=== PATIENT | female | born 1965 | race African-American/Black ===

== ENCOUNTER 2017-09-29 07:49 | Inpatient (IN) ==
--- NOTE | 2017-09-29 08:14 | ED ---
HPI General Chief Complaint: Chest Pain Stated Complaint: Chest Pain/Evac Time Seen by Provider: 09/29/17 08:07 Source: patient Mode of arrival: EMS Limitations: no limitations History of Present Illness HPI narrative: 52-year-old female complains of chest pain. Patient states that the pain started at 8:00 last night. Patient states that the pain is sharp pain localized to left chest., Started a left chest with radiation to left shoulder. Patient states that the pain is worse with deep breathing. Patient states that she has mild coughing congestion productive cough for the past 2 days. Patient Has history of CAD status post CABG, ischemic cardiomyopathy, CHF with ejection fraction 55-60%, hypertension, insulin-dependent diabetes, hyperlipidemia, stage IV chronic kidney disease, diabetic neuropathy, GI bleed. Patient has dialysis Monday and Monday. Patient went to dialysis this morning and was given heparin 2,000 units Preparing for dialysis. Patient was not given dialysis after patient complained of chest pain. Patient was transferred to [facility] by EMS for evaluation of chest pain. Patient was given nitroglycerin sublingual 3 without relief with chest pain. 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 Patient has appointment with Dr. Cobos for AV fistula check today. Complete Quality Measures for STEMI Alert Patients Related Data Home Medications Medication Instructions Recorded Confirmed amlodipine 10 mg PO DAILY 09/29/17 09/29/17 aspirin [Aspir-81] 81 mg PO DAILY 09/29/17 09/29/17 clopidogrel [Plavix] 75 mg PO DAILY 09/29/17 09/29/17 enalapril maleate [Vasotec] 20 mg PO BID 09/29/17 09/29/17 ferrous sulfate 325 mg PO BID 09/29/17 09/29/17 folic acid 0.4 mg PO DAILY 09/29/17 09/29/17 gabapentin 300 mg PO DAILY 09/29/17 09/29/17 hydralazine 50 mg PO TID 09/29/17 09/29/17 insulin glargine [Lantus U-100 15 unit SUB-Q DAILY 09/29/17 09/29/17 Insulin] isosorbide mononitrate 120 mg PO QAM 09/29/17 09/29/17 metoprolol tartrate 100 mg PO BID 09/29/17 09/29/17 nitroglycerin [Nitrostat] 0.4 mg SUBLINGUAL Q5-15M PRN 09/29/17 09/29/17 ondansetron HCl [Zofran] 4 mg PO Q6HR PRN 09/29/17 09/29/17 pravastatin [Pravachol] 40 mg PO DAILY 09/29/17 09/29/17 Allergies Allergy/AdvReac Type Severity Reaction Status Date / Time shellfish derived AdvReac Mild Vomiting Verified 09/29/17 08:09 Review of Systems Except as stated in HPI: all other systems reviewed are negative [facility] Medical History Medical History AV fistula (Acute) CAD (coronary artery disease) (Acute) CHF (congestive heart failure) (Acute) Diabetes (Acute) Dialysis patient (Acute) High cholesterol (Acute) Hypertension (Acute) Neuropathy (Acute) Pancreatitis (Acute) Renal failure (Acute) Surgical History Surgical History H/O tubal ligation (Acute) History of cholecystectomy (Acute) Status post double vessel coronary artery bypass (Acute) Social History Social History Substance History: No History of Abuse Second Hand Smoke Exposure: No Smoking Status: Former smoker Smoking End Date: 2016 How Often Do You Have a Drink Containing Alcohol: Never Hx Recent Travel: No Recent Travel in [facility] within the Last 8 Weeks: No Recent Out of Country Travel within the Last 8 Weeks: No Immunization History Tetanus Immunization: >5 Years Hx Influenza Vaccine This Season: Yes Exam Narrative Exam Narrative: GENERAL: Well-nourished, well-developed patient. SKIN: Focused skin assessment warm/dry. HEAD: Normocephalic. EYES: No scleral icterus. No injection or drainage. NECK: Supple, trachea midline. No JVD or lymphadenopathy. CARDIOVASCULAR: Regular rate and rhythm without murmurs, gallops, or rubs. RESPIRATORY: Breath sounds equal bilaterally. No accessory muscle use. GASTROINTESTINAL: Abdomen soft, non-tender, nondistended. MUSCULOSKELETAL: No cyanosis, or edema. BACK: Nontender without obvious deformity. No CVA tenderness. Neurologic exam normal. Course Initial Documented Vital Signs Temperature 98.0 F 09/29/17 07:55 Pulse Rate 77 09/29/17 07:55 Respiratory Rate 21 09/29/17 07:55 Blood Pressure 186/84 H 09/29/17 07:55 Pulse Oximetry 100 09/29/17 07:55 Last Documented Vital Signs Temperature 98.2 F 10/01/17 12:00 Pulse Rate 71 10/01/17 12:00 Respiratory Rate 18 10/01/17 12:00 Blood Pressure 152/77 H 10/01/17 12:00 Pulse Oximetry 97 10/01/17 12:00 Medical Decision Making MDM Narrative Medical decision making narrative: 52-year-old female with chest pain. History of CAD, CABG, status post CABG, ischemic cardiomyopathy, CHF, chronic kidney disease on dialysis. Differential Diagnosis Differential Diagnosis: Differential diagnosis including musculoskeletal, angina , PA, PE, pneumothorax. Lab Data Result diagrams: 10/01/17 08:55 10/01/17 08:55 Lab Results 09/29/17 09/29/17 09/29/17 Range/Units 09:40 09:40 09:40 WBC (4.0-11.0) th/mm3 RBC (4.00-5.30) mil/mm3 Hgb (11.6-15.3) gm/dL Hct (35.0-46.0) % MCV (80.0-100.0) fL MCH (27.0-34.0) pg MCHC (32.0-36.0) % RDW (11.6-17.2) % Plt Count (150-450) th/mm3 MPV (7.0-11.0) fL Neut % (Auto) (16.0-70.0) % Lymph % (Auto) (9.0-44.0) % [place] % (Auto) (0.0-8.0) % Eos % (Auto) (0.0-4.0) % Baso % (Auto) (0.0-2.0) % Neut # (Auto) (1.8-7.7) th/mm3 Lymph # (Auto) (1.0-4.8) th/mm3 [place] # (Auto) (0.0-0.9) th/mm3 Eos # (Auto) (0.0-0.4) th/mm3 Baso # (Auto) (0.0-0.2) th/mm3 WBC Differential Differential Comment PT 10.4 (9.8-11.6) sec INR 1.0 Ratio APTT 22.6 L (24.3-30.1) sec D-Dimer Quant (PE/DVT) 1.16 H (0.00-0.50) mg/L FEU Sodium 138 (136-145) meq/L Potassium 5.1 (3.5-5.1) meq/L Chloride 107 (98-107) meq/L Carbon Dioxide 19.2 L (21.0-32.0) meq/L Anion Gap 12 (5-15) meq/L BUN 45 H (7-18) mg/dL Creatinine 4.68 H (0.50-1.00) mg/dL Estimated GFR 12 L (>89) mL/min POC Glucose (68-110) mg/dl Random Glucose 88 (74-106) mg/dL Fasting Glucose (74-99) mg/dL Lactic Acid (0.4-2.0) mmol/L Calcium 8.7 (8.5-10.1) mg/dL Phosphorus (2.5-4.9) mg/dL Magnesium 2.7 H (1.5-2.5) mg/dL Total Bilirubin 0.5 (0.2-1.0) mg/dL AST 27 (15-37) U/L ALT 34 (10-53) U/L Alkaline Phosphatase 517 H (45-117) U/L Total Creatine Kinase 99 (26-192) U/L Troponin I Less than 0.02 L (0.02-0.05) ng/mL Total Protein 8.3 H (6.4-8.2) g/dL Albumin 3.5 (3.4-5.0) g/dL Urine Color (Yellw/Straw) Urine Clarity (Clear) Urine pH (5.0-8.5) Ur Specific [place] (1.002-1.035) Urine Protein (Neg-Trace) mg/dL Urine Glucose (UA) (Negative) mg/dL Urine Ketones (Negative) mg/dL Urine Occult Blood (Negative) Urine Nitrate (Negative) Urine Bilirubin (Negative) Urine Urobilinogen (Less than 2) mg/dL Ur Leukocyte Esterase (Negative) Urine RBC (0-3) /hpf Urine WBC (0-5) /hpf Ur Squamous Epith Cells (0-5) /hpf Amorphous Sediment (None) /hpf Micro UA Comment Urine Culture Comments 09/29/17 09/29/17 09/30/17 Range/Units 10:30 23:35 00:20 WBC 8.0 (4.0-11.0) th/mm3 RBC 4.03 (4.00-5.30) mil/mm3 Hgb 13.6 (11.6-15.3) gm/dL Hct 40.2 (35.0-46.0) % MCV 99.7 (80.0-100.0) fL MCH 33.8 (27.0-34.0) pg MCHC 33.9 (32.0-36.0) % RDW 16.7 (11.6-17.2) % Plt Count 281 (150-450) th/mm3 MPV 7.5 (7.0-11.0) fL Neut % (Auto) 77.3 H (16.0-70.0) % Lymph % (Auto) 7.5 L (9.0-44.0) % [place] % (Auto) 11.1 H (0.0-8.0) % Eos % (Auto) 3.2 (0.0-4.0) % Baso % (Auto) 0.9 (0.0-2.0) % Neut # (Auto) 6.2 (1.8-7.7) th/mm3 Lymph # (Auto) 0.6 L (1.0-4.8) th/mm3 [place] # (Auto) 0.9 (0.0-0.9) th/mm3 Eos # (Auto) 0.3 (0.0-0.4) th/mm3 Baso # (Auto) 0.1 (0.0-0.2) th/mm3 WBC Differential . Differential Comment Auto diff final PT (9.8-11.6) sec INR Ratio APTT (24.3-30.1) sec D-Dimer Quant (PE/DVT) (0.00-0.50) mg/L FEU Sodium (136-145) meq/L Potassium (3.5-5.1) meq/L Chloride (98-107) meq/L Carbon Dioxide (21.0-32.0) meq/L Anion Gap (5-15) meq/L BUN (7-18) mg/dL Creatinine (0.50-1.00) mg/dL Estimated GFR (>89) mL/min POC Glucose 240 H (68-110) mg/dl Random Glucose (74-106) mg/dL Fasting Glucose (74-99) mg/dL Lactic Acid (0.4-2.0) mmol/L Calcium (8.5-10.1) mg/dL Phosphorus (2.5-4.9) mg/dL Magnesium (1.5-2.5) mg/dL Total Bilirubin (0.2-1.0) mg/dL AST (15-37) U/L ALT (10-53) U/L Alkaline Phosphatase (45-117) U/L Total Creatine Kinase (26-192) U/L Troponin I 0.04 (0.02-0.05) ng/mL Total Protein (6.4-8.2) g/dL Albumin (3.4-5.0) g/dL Urine Color (Yellw/Straw) Urine Clarity (Clear) Urine pH (5.0-8.5) Ur Specific [place] (1.002-1.035) Urine Protein (Neg-Trace) mg/dL Urine Glucose (UA) (Negative) mg/dL Urine Ketones (Negative) mg/dL Urine Occult Blood (Negative) Urine Nitrate (Negative) Urine Bilirubin (Negative) Urine Urobilinogen (Less than 2) mg/dL Ur Leukocyte Esterase (Negative) Urine RBC (0-3) /hpf Urine WBC (0-5) /hpf Ur Squamous Epith Cells (0-5) /hpf Amorphous Sediment (None) /hpf Micro UA Comment Urine Culture Comments 09/30/17 09/30/17 09/30/17 Range/Units 00:20 00:20 07:31 WBC (4.0-11.0) th/mm3 RBC (4.00-5.30) mil/mm3 Hgb (11.6-15.3) gm/dL Hct (35.0-46.0) % MCV (80.0-100.0) fL MCH (27.0-34.0) pg MCHC (32.0-36.0) % RDW (11.6-17.2) % Plt Count (150-450) th/mm3 MPV (7.0-11.0) fL Neut % (Auto) (16.0-70.0) % Lymph % (Auto) (9.0-44.0) % [place] % (Auto) (0.0-8.0) % Eos % (Auto) (0.0-4.0) % Baso % (Auto) (0.0-2.0) % Neut # (Auto) (1.8-7.7) th/mm3 Lymph # (Auto) (1.0-4.8) th/mm3 [place] # (Auto) (0.0-0.9) th/mm3 Eos # (Auto) (0.0-0.4) th/mm3 Baso # (Auto) (0.0-0.2) th/mm3 WBC Differential Differential Comment PT (9.8-11.6) sec INR Ratio APTT (24.3-30.1) sec D-Dimer Quant (PE/DVT) (0.00-0.50) mg/L FEU Sodium 141 (136-145) meq/L Potassium 3.7 D (3.5-5.1) meq/L Chloride 104 (98-107) meq/L Carbon Dioxide 24.7 (21.0-32.0) meq/L Anion Gap 12 (5-15) meq/L BUN 32 H (7-18) mg/dL Creatinine 4.00 H (0.50-1.00) mg/dL Estimated GFR 14 L (>89) mL/min POC Glucose (68-110) mg/dl Random Glucose (74-106) mg/dL Fasting Glucose 69 L (74-99) mg/dL Lactic Acid 0.7 (0.4-2.0) mmol/L Calcium 8.9 (8.5-10.1) mg/dL Phosphorus 3.8 (2.5-4.9) mg/dL Magnesium (1.5-2.5) mg/dL Total Bilirubin 0.6 (0.2-1.0) mg/dL AST 15 (15-37) U/L ALT 25 (10-53) U/L Alkaline Phosphatase 475 H (45-117) U/L Total Creatine Kinase (26-192) U/L Troponin I 0.03 (0.02-0.05) ng/mL Total Protein 7.9 (6.4-8.2) g/dL Albumin 3.2 L (3.4-5.0) g/dL Urine Color (Yellw/Straw) Urine Clarity (Clear) Urine pH (5.0-8.5) Ur Specific [place] (1.002-1.035) Urine Protein (Neg-Trace) mg/dL Urine Glucose (UA) (Negative) mg/dL Urine Ketones (Negative) mg/dL Urine Occult Blood (Negative) Urine Nitrate (Negative) Urine Bilirubin (Negative) Urine Urobilinogen (Less than 2) mg/dL Ur Leukocyte Esterase (Negative) Urine RBC (0-3) /hpf Urine WBC (0-5) /hpf Ur Squamous Epith Cells (0-5) /hpf Amorphous Sediment (None) /hpf Micro UA Comment Urine Culture Comments 09/30/17 09/30/17 09/30/17 Range/Units 07:31 09:15 09:42 WBC 6.9 (4.0-11.0) th/mm3 RBC 4.22 (4.00-5.30) mil/mm3 Hgb 13.4 (11.6-15.3) gm/dL Hct 41.2 (35.0-46.0) % MCV 97.5 (80.0-100.0) fL MCH 31.7 (27.0-34.0) pg MCHC 32.5 (32.0-36.0) % RDW 16.3 (11.6-17.2) % Plt Count 281 (150-450) th/mm3 MPV 7.4 (7.0-11.0) fL Neut % (Auto) 70.3 H (16.0-70.0) % Lymph % (Auto) 14.7 (9.0-44.0) % [place] % (Auto) 11.4 H (0.0-8.0) % Eos % (Auto) 2.7 (0.0-4.0) % Baso % (Auto) 0.9 (0.0-2.0) % Neut # (Auto) 4.9 (1.8-7.7) th/mm3 Lymph # (Auto) 1.0 (1.0-4.8) th/mm3 [place] # (Auto) 0.8 (0.0-0.9) th/mm3 Eos # (Auto) 0.2 (0.0-0.4) th/mm3 Baso # (Auto) 0.1 (0.0-0.2) th/mm3 WBC Differential . Differential Comment Auto diff final PT (9.8-11.6) sec INR Ratio APTT (24.3-30.1) sec D-Dimer Quant (PE/DVT) (0.00-0.50) mg/L FEU Sodium (136-145) meq/L Potassium (3.5-5.1) meq/L Chloride (98-107) meq/L Carbon Dioxide (21.0-32.0) meq/L Anion Gap (5-15) meq/L BUN (7-18) mg/dL Creatinine (0.50-1.00) mg/dL Estimated GFR (>89) mL/min POC Glucose 44 L* 53 L (68-110) mg/dl Random Glucose (74-106) mg/dL Fasting Glucose (74-99) mg/dL Lactic Acid (0.4-2.0) mmol/L Calcium (8.5-10.1) mg/dL Phosphorus (2.5-4.9) mg/dL Magnesium (1.5-2.5) mg/dL Total Bilirubin (0.2-1.0) mg/dL AST (15-37) U/L ALT (10-53) U/L Alkaline Phosphatase (45-117) U/L Total Creatine Kinase (26-192) U/L Troponin I (0.02-0.05) ng/mL Total Protein (6.4-8.2) g/dL Albumin (3.4-5.0) g/dL Urine Color (Yellw/Straw) Urine Clarity (Clear) Urine pH (5.0-8.5) Ur Specific [place] (1.002-1.035) Urine Protein (Neg-Trace) mg/dL Urine Glucose (UA) (Negative) mg/dL Urine Ketones (Negative) mg/dL Urine Occult Blood (Negative) Urine Nitrate (Negative) Urine Bilirubin (Negative) Urine Urobilinogen (Less than 2) mg/dL Ur Leukocyte Esterase (Negative) Urine RBC (0-3) /hpf Urine WBC (0-5) /hpf Ur Squamous Epith Cells (0-5) /hpf Amorphous Sediment (None) /hpf Micro UA Comment Urine Culture Comments 09/30/17 09/30/17 09/30/17 Range/Units 11:51 16:57 19:59 WBC (4.0-11.0) th/mm3 RBC (4.00-5.30) mil/mm3 Hgb (11.6-15.3) gm/dL Hct (35.0-46.0) % MCV (80.0-100.0) fL MCH (27.0-34.0) pg MCHC (32.0-36.0) % RDW (11.6-17.2) % Plt Count (150-450) th/mm3 MPV (7.0-11.0) fL Neut % (Auto) (16.0-70.0) % Lymph % (Auto) (9.0-44.0) % [place] % (Auto) (0.0-8.0) % Eos % (Auto) (0.0-4.0) % Baso % (Auto) (0.0-2.0) % Neut # (Auto) (1.8-7.7) th/mm3 Lymph # (Auto) (1.0-4.8) th/mm3 [place] # (Auto) (0.0-0.9) th/mm3 Eos # (Auto) (0.0-0.4) th/mm3 Baso # (Auto) (0.0-0.2) th/mm3 WBC Differential Differential Comment PT (9.8-11.6) sec INR Ratio APTT (24.3-30.1) sec D-Dimer Quant (PE/DVT) (0.00-0.50) mg/L FEU Sodium (136-145) meq/L Potassium (3.5-5.1) meq/L Chloride (98-107) meq/L Carbon Dioxide (21.0-32.0) meq/L Anion Gap (5-15) meq/L BUN (7-18) mg/dL Creatinine (0.50-1.00) mg/dL Estimated GFR (>89) mL/min POC Glucose 347 H 403 H 152 H (68-110) mg/dl Random Glucose (74-106) mg/dL Fasting Glucose (74-99) mg/dL Lactic Acid (0.4-2.0) mmol/L Calcium (8.5-10.1) mg/dL Phosphorus (2.5-4.9) mg/dL Magnesium (1.5-2.5) mg/dL Total Bilirubin (0.2-1.0) mg/dL AST (15-37) U/L ALT (10-53) U/L Alkaline Phosphatase (45-117) U/L Total Creatine Kinase (26-192) U/L Troponin I (0.02-0.05) ng/mL Total Protein (6.4-8.2) g/dL Albumin (3.4-5.0) g/dL Urine Color ([place]ell[place]/Straw) Urine Clarity (Clear) Urine pH (5.0-8.5) Ur Specific [place] (1.002-1.035) Urine Protein (Neg-Trace) mg/dL Urine Glucose (UA) (Negative) mg/dL Urine Ketones (Negative) mg/dL Urine Occult Blood (Negative) Urine Nitrate (Negative) Urine Bilirubin (Negative) Urine Urobilinogen (Less than 2) mg/dL Ur Leukocyte Esterase (Negative) Urine RBC (0-3) /hpf Urine WBC (0-5) /hpf Ur Squamous Epith Cells (0-5) /hpf Amorphous Sediment (None) /hpf Micro UA Comment Urine Culture Comments 10/01/17 10/01/17 10/01/17 Range/Units 02:07 02:07 08:43 WBC 6.0 (4.0-11.0) th/mm3 RBC 3.89 L (4.00-5.30) mil/mm3 Hgb 12.4 (11.6-15.3) gm/dL Hct 38.4 (35.0-46.0) % MCV 98.7 (80.0-100.0) fL MCH 31.9 (27.0-34.0) pg MCHC 32.3 (32.0-36.0) % RDW 16.6 (11.6-17.2) % Plt Count 278 (150-450) th/mm3 MPV 7.6 (7.0-11.0) fL Neut % (Auto) (16.0-70.0) % Lymph % (Auto) (9.0-44.0) % [place] % (Auto) (0.0-8.0) % Eos % (Auto) (0.0-4.0) % Baso % (Auto) (0.0-2.0) % Neut # (Auto) (1.8-7.7) th/mm3 Lymph # (Auto) (1.0-4.8) th/mm3 [place] # (Auto) (0.0-0.9) th/mm3 Eos # (Auto) (0.0-0.4) th/mm3 Baso # (Auto) (0.0-0.2) th/mm3 WBC Differential Differential Comment PT (9.8-11.6) sec INR Ratio APTT (24.3-30.1) sec D-Dimer Quant (PE/DVT) (0.00-0.50) mg/L FEU Sodium 138 (136-145) meq/L Potassium 4.3 (3.5-5.1) meq/L Chloride 102 (98-107) meq/L Carbon Dioxide 25.1 (21.0-32.0) meq/L Anion Gap 11 (5-15) meq/L BUN 48 H (7-18) mg/dL Creatinine 4.91 H (0.50-1.00) mg/dL Estimated GFR 11 L (>89) mL/min POC Glucose 193 H (68-110) mg/dl Random Glucose 192 H D (74-106) mg/dL Fasting Glucose (74-99) mg/dL Lactic Acid (0.4-2.0) mmol/L Calcium 8.1 L D (8.5-10.1) mg/dL Phosphorus (2.5-4.9) mg/dL Magnesium (1.5-2.5) mg/dL Total Bilirubin 0.5 (0.2-1.0) mg/dL AST 11 L (15-37) U/L ALT 20 (10-53) U/L Alkaline Phosphatase 361 H (45-117) U/L Total Creatine Kinase (26-192) U/L Troponin I (0.02-0.05) ng/mL Total Protein 6.7 D (6.4-8.2) g/dL Albumin 2.9 L (3.4-5.0) g/dL Urine Color (Yellw/Straw) Urine Clarity (Clear) Urine pH (5.0-8.5) Ur Specific [place] (1.002-1.035) Urine Protein (Neg-Trace) mg/dL Urine Glucose (UA) (Negative) mg/dL Urine Ketones (Negative) mg/dL Urine Occult Blood (Negative) Urine Nitrate (Negative) Urine Bilirubin (Negative) Urine Urobilinogen (Less than 2) mg/dL Ur Leukocyte Esterase (Negative) Urine RBC (0-3) /hpf Urine WBC (0-5) /hpf Ur Squamous Epith Cells (0-5) /hpf Amorphous Sediment (None) /hpf Micro UA Comment Urine Culture Comments 10/01/17 10/01/17 10/01/17 Range/Units 08:55 08:55 12:03 WBC 5.5 (4.0-11.0) th/mm3 RBC 4.42 (4.00-5.30) mil/mm3 Hgb 14.2 (11.6-15.3) gm/dL Hct 43.9 (35.0-46.0) % MCV 99.2 (80.0-100.0) fL MCH 32.1 (27.0-34.0) pg MCHC 32.4 (32.0-36.0) % RDW 16.3 (11.6-17.2) % Plt Count 304 (150-450) th/mm3 MPV 8.0 (7.0-11.0) fL Neut % (Auto) 61.7 (16.0-70.0) % Lymph % (Auto) 19.4 (9.0-44.0) % [place] % (Auto) 11.2 H (0.0-8.0) % Eos % (Auto) 6.8 H (0.0-4.0) % Baso % (Auto) 0.9 (0.0-2.0) % Neut # (Auto) 3.4 (1.8-7.7) th/mm3 Lymph # (Auto) 1.1 (1.0-4.8) th/mm3 [place] # (Auto) 0.6 (0.0-0.9) th/mm3 Eos # (Auto) 0.4 (0.0-0.4) th/mm3 Baso # (Auto) 0.1 (0.0-0.2) th/mm3 WBC Differential . Differential Comment Auto diff final PT (9.8-11.6) sec INR Ratio APTT (24.3-30.1) sec D-Dimer Quant (PE/DVT) (0.00-0.50) mg/L FEU Sodium 136 (136-145) meq/L Potassium 4.7 (3.5-5.1) meq/L Chloride 100 (98-107) meq/L Carbon Dioxide 24.0 (21.0-32.0) meq/L Anion Gap 12 (5-15) meq/L BUN 50 H (7-18) mg/dL Creatinine 5.29 H (0.50-1.00) mg/dL Estimated GFR 10 L (>89) mL/min POC Glucose 266 H (68-110) mg/dl Random Glucose 207 H (74-106) mg/dL Fasting Glucose (74-99) mg/dL Lactic Acid (0.4-2.0) mmol/L Calcium 9.0 D (8.5-10.1) mg/dL Phosphorus (2.5-4.9) mg/dL Magnesium (1.5-2.5) mg/dL Total Bilirubin 0.6 (0.2-1.0) mg/dL AST 14 L (15-37) U/L ALT 22 (10-53) U/L Alkaline Phosphatase 437 H (45-117) U/L Total Creatine Kinase (26-192) U/L Troponin I (0.02-0.05) ng/mL Total Protein 8.2 D (6.4-8.2) g/dL Albumin 3.3 L (3.4-5.0) g/dL Urine Color (Yellw/Straw) Urine Clarity (Clear) Urine pH (5.0-8.5) Ur Specific [place] (1.002-1.035) Urine Protein (Neg-Trace) mg/dL Urine Glucose (UA) (Negative) mg/dL Urine Ketones (Negative) mg/dL Urine Occult Blood (Negative) Urine Nitrate (Negative) Urine Bilirubin (Negative) Urine Urobilinogen (Less than 2) mg/dL Ur Leukocyte Esterase (Negative) Urine RBC (0-3) /hpf Urine WBC (0-5) /hpf Ur Squamous Epith Cells (0-5) /hpf Amorphous Sediment (None) /hpf Micro UA Comment Urine Culture Comments 10/01/17 Range/Units 15:09 WBC (4.0-11.0) th/mm3 RBC (4.00-5.30) mil/mm3 Hgb (11.6-15.3) gm/dL Hct (35.0-46.0) % MCV (80.0-100.0) fL MCH (27.0-34.0) pg MCHC (32.0-36.0) % RDW (11.6-17.2) % Plt Count (150-450) th/mm3 MPV (7.0-11.0) fL Neut % (Auto) (16.0-70.0) % Lymph % (Auto) (9.0-44.0) % [place] % (Auto) (0.0-8.0) % Eos % (Auto) (0.0-4.0) % Baso % (Auto) (0.0-2.0) % Neut # (Auto) (1.8-7.7) th/mm3 Lymph # (Auto) (1.0-4.8) th/mm3 [place] # (Auto) (0.0-0.9) th/mm3 Eos # (Auto) (0.0-0.4) th/mm3 Baso # (Auto) (0.0-0.2) th/mm3 WBC Differential Differential Comment PT (9.8-11.6) sec INR Ratio APTT (24.3-30.1) sec D-Dimer Quant (PE/DVT) (0.00-0.50) mg/L FEU Sodium (136-145) meq/L Potassium (3.5-5.1) meq/L Chloride (98-107) meq/L Carbon Dioxide (21.0-32.0) meq/L Anion Gap (5-15) meq/L BUN (7-18) mg/dL Creatinine (0.50-1.00) mg/dL Estimated GFR (>89) mL/min POC Glucose (68-110) mg/dl Random Glucose (74-106) mg/dL Fasting Glucose (74-99) mg/dL Lactic Acid (0.4-2.0) mmol/L Calcium (8.5-10.1) mg/dL Phosphorus (2.5-4.9) mg/dL Magnesium (1.5-2.5) mg/dL Total Bilirubin (0.2-1.0) mg/dL AST (15-37) U/L ALT (10-53) U/L Alkaline Phosphatase (45-117) U/L Total Creatine Kinase (26-192) U/L Troponin I (0.02-0.05) ng/mL Total Protein (6.4-8.2) g/dL Albumin (3.4-5.0) g/dL Urine Color Yellow (Yellw/Straw) Urine Clarity Hazy H (Clear) Urine pH 5.0 (5.0-8.5) Ur Specific [place] 1.011 (1.002-1.035) Urine Protein 500 or greater (Neg-Trace) mg/dL Urine Glucose (UA) 500 or greater (Negative) mg/dL Urine Ketones Negative (Negative) mg/dL Urine Occult Blood Negative (Negative) Urine Nitrate Negative (Negative) Urine Bilirubin Negative (Negative) Urine Urobilinogen Less than 2 (Less than 2) mg/dL Ur Leukocyte Esterase Negative (Negative) Urine RBC 4 H (0-3) /hpf Urine WBC 5 (0-5) /hpf Ur Squamous Epith Cells <1 (0-5) /hpf Amorphous Sediment Moderate H (None) /hpf Micro UA Comment Cath-culture not ind Urine Culture Comments Cath-cult not ind Imaging Data Radiologist's impression: ITS Impressions Ribs X-Ray 09/29/17 00:00 CONCLUSION: No definite rib fractures are demonstrated. Chest X-Ray 09/29/17 08:09 CONCLUSION: 1. Left basilar airspace disease 2. Median sternotomy wires status post open heart surgery. 3. Mild cardiomegaly. 4. Stable dialysis catheter. Pulmonary Perfusion Imaging 09/29/17 09:44 CONCLUSION: 1. Low probability for PE. Chest CT 09/30/17 00:00 CONCLUSION: 1. Small bilateral pleural effusions with basilar atelectasis. Trace pericardial fluid. 2. Severe coronary artery calcifications status post CABG. 3. Mild anasarca. Catheter tip in right atrium. Discharge Plan Discharge Disposition Patient Disposition: 30 Still Patient Discharge Details Discharge Problem: Chest pain, Pneumonia Physicians Team ED Provider: Lul Gillespie Primary Care Provider: Abdulkadir Campos Attending Provider: Zenaida Sheriff Other Providers: Pierce Dawn Discharge Interventions Interventions: ED Discharge Assessment Last Done: 09/29/17 18:48 Status ED Status: Left Department Discharge Information Discharge Date/Time: 09/29/17 18:50
--- NOTE | 2017-09-29 08:43 | XR ---
EXAM DATE: 09/29/2017 8:37 AM EDT AGE/SEX: 52 years / Female INDICATIONS: Left side chest pains with pressure,and shortness of breath. CLINICAL DATA: This is the patient's initial encounter. Patient reports that signs and symptoms have been present for 1 day and indicates a pain score of 5/10. MEDICAL/SURGICAL HISTORY: Chronic obstructive pulmonary disease. Cardiovascular disease. CABG. Tenckhoff catheter COMPARISON: [facility], XR CHEST PA AND LAT, 07/27/2017. . FINDINGS: Lungs are hypoaerated. Left basilar airspace disease is identified. Previously identified nodular den sity in the right base is not clearly visualized Heart is mildly enlarged. There is evidence of previous open heart surgery. Tunneled dialysis catheter is in stable position. CONCLUSION: 1. Left basilar airspace disease 2. Median sternotomy wires status post open heart surgery. 3. Mild cardiomegaly. 4. Stable dialysis catheter. Electronically signed by: Dayron Alcala MD 09/29/2017 8:41 AM EDT
[2017-09-29] MEDS ORDERED: Morphine Sulfate Inj 2 MG/ML Vial IV.PUSH ONE ×2 (09:42→14:43)
[2017-09-29] MEDS ORDERED: Morphine Inj 4 MG/ML Vial IV.PUSH ONE (10:00)
[2017-09-29 10:11] LABS: Activated Partial Thrombo Time 22.6 sec (24.3-30.1); D-Dimer 1.16 mg/L FEU (0.00-0.50); Prothrombin Time 10.4 sec (9.8-11.6)
[2017-09-29 10:15] LABS: Alanine Aminotransferase 34 U/L (10-53)
[2017-09-29 10:18] LABS: Alkaline Phosphatase 517 U/L (45-117); Total Protein 8.3 g/dL (6.4-8.2)
[2017-09-29 10:35] LABS: Albumin 3.5 g/dL (3.4-5.0); Anion Gap 12 meq/L (5-15); Aspartate Aminotransferase 27 U/L (15-37); Blood Urea Nitrogen 45 mg/dL (7-18); Calcium 8.7 mg/dL (8.5-10.1); Carbon Dioxide 19.2 meq/L (21.0-32.0); Chloride 107 meq/L (98-107); Glomerular Filtration Rate 12 mL/min (>89); Glucose,Random 88 mg/dL (74-106); Sodium 138 meq/L (136-145)
[2017-09-29 10:36] LABS: Creatine Kinase 99 U/L (26-192); Magnesium 2.7 mg/dL (1.5-2.5); Potassium 5.1 meq/L (3.5-5.1)
[2017-09-29 10:45] LABS: Baso # (Auto) 0.1 th/mm3 (0.0-0.2); Baso % (Auto) 0.9 % (0.0-2.0); Eos # (Auto) 0.3 th/mm3 (0.0-0.4); Eos % (Auto) 3.2 % (0.0-4.0); Hematocrit 40.2 % (35.0-46.0); Hemoglobin 13.6 gm/dL (11.6-15.3); Lymph # (Auto) 0.6 th/mm3 (1.0-4.8); Lymph % (Auto) 7.5 % (9.0-44.0); Mean Corpuscular HGB Conc 33.9 % (32.0-36.0); Mean Corpuscular Hemoglobin 33.8 pg (27.0-34.0); Mean Corpuscular Volume 99.7 fL (80.0-100.0); Mean Platelet Volume 7.5 fL (7.0-11.0); Mono # (Auto) 0.9 th/mm3 (0.0-0.9); Mono % (Auto) 11.1 % (0.0-8.0); Neut # (Auto) 6.2 th/mm3 (1.8-7.7); Neut % (Auto) 77.3 % (16.0-70.0); Platelet Count 281 th/mm3 (150-450); Red Blood Count 4.03 mil/mm3 (4.00-5.30); Red Cell Distribution Width 16.7 % (11.6-17.2)
--- NOTE | 2017-09-29 13:32 | NM ---
EXAM DATE: 09/29/2017 1:23 PM EDT AGE/SEX: 52 years / Female INDICATIONS: Dyspnea with left sided chest pain radiating to left shoulder. CLINICAL DATA: This is the patient's initial encounter. Patient reports that signs and symptoms have been present for 1 day and indicates a pain score of 5/10. MEDICAL/SURGICAL HISTORY: Diabetes mellitus type II. Congestive heart failure. Hypertension. Renal failure, pancreatitis and coronary artery disease. Tubal ligation. CABG. Cholecystectomy. COMPARISON: [facility], CHEST 1V SINGLE AP, 09/29/2017. . DOSE: 1.5 mCi Tc99m DTPA aerosol 8.5 mCi Tc99m MAA IV TECHNIQUE: Following five minutes of tidal breathing of DTPA aerosol, planar images of the lungs wer e performed in eight projections. The patient was then injected with MAA, and eight-view perfusion s can was performed. FINDINGS: On the ventilation study, there is some decreased ventilation to the left lower lung. There appears t o be good ventilation of the right lung. There is a infiltrate in the left lung base on the chest x-r ay. The perfusion lung scan demonstrates a homogenous pattern of uptake in both lungs. No segmental or s ubsegmental defects are seen. CONCLUSION: 1. Low probability for PE. Electronically signed by: Jacob Castellon MD 09/29/2017 1:31 PM EDT
[2017-09-29] MEDS ORDERED: Azithromycin Inj 500 MG in Sodium Chlor 0.9% Inj 250 ML IV.SIG ONE (13:44)
--- NOTE | 2017-09-29 14:05 | ECG ---
Date Performed: 09/29/2017 Time Performed: 08:03:22 PTAGE: 52 years EKG: Sinus rhythm LEFT ATRIAL ENLARGEMENT MARKED LEFT AXIS DEVIATION Nonspecific ST and T wave abnormalities ABNORMAL ECG NO PREVIOUS TRACING DOCTOR: Dereck Brown Interpretating Date/Time 09/29/2017 14:03:35
[2017-09-29] MEDS ORDERED: amLODIPine 10 MG Tablet PO ONE (14:41)
[2017-09-29] MEDS ORDERED: hydrALAZINE 50 MG Tablet PO ONE (14:41)
[2017-09-29] MEDS ORDERED: Acetaminophen 325 MG Tablet PO PRN ×2 (15:21→16:49)
--- NOTE | 2017-09-29 15:39 | P.HPFP ---
History of Present Illness Primary Care Physician: Abdulkadir Campos DO <NatalierejiZenaida R - 09/30/17 12:37> Abdulkdair Campos DO <MarcoLucrecia B - 09/29/17 15:39> History of Present Illness: 09/29/17 at 18:45 Nephrology USABILITY STRATEGIST seen and examined patient in dialysis suite. Notes possible dialysis port infection. BC x2 and Vancomycin 1g IV ordered. 09/29/17 at 19:10 Patient seen and examined by inpatient medical team. Patient is anxious while dialysis running and complains of pain at the site of the port. On palpation patient is tender over the site of the port, however, there are no obvious signs of infection such as erythema, warmth, or drainage. Per nurse, once dialysis started experiencing chills and increased pain at the site of the port. Will add on sputum culture, legionella urine antigen test, pneumococcal urine antigen test and urine culture. 09/29/17 at 23:00 Per nurse, patient is agitated and refusing all blood draws at this time. Patient strongly encouraged to allow for blood draw to rule out possible heart attack and possible infection. Patient understands and continues to refuse blood draw. 52 y/o female with history of ESRD who receives dialysis on a MWF schedule, DM, double bypass surgery performed in July of this year and CAD with four stent placements presented to the emergency department from the dialysis clinic for left-sided chest pain. Patient was sent to the emergency department before she was able to receive dialysis treatment. Patient currently complains on sharp and constant left-sided chest pain that radiates to her left shoulder that started at 8PM last night. Denies any particular trigger, stating that she was sitting down resting when the pain started. Patient states she took 2 nitroglycerin tabs for the pain prior to going to dialysis this morning, but it did not reduce her pain. She complains of difficulty breathing due to this pain. Patient denies trauma to the area, recent heavy lifting, noticeable rash, nausea, vomiting or abdominal pain. She had experienced similar pain about 2 weeks ago, but states that the pain stopped on its own. She also notes drenching night sweats for the past month, but denies any change in weight or sick contacts. She has also noticed mild swelling in both of her legs, worse in the past couple of days. Though she has a significant cardiac history, she states that she does not have a instructor of education at this time. <Lucrecia Lara 09/30/17 00:49> - Diagnosis (1) Pneumonia (2) ESRD (end stage renal disease) on dialysis (3) Chest pain (4) HTN (hypertension) (5) Diabetes mellitus (6) Nutrition, metabolism, and development symptoms (7) DVT prophylaxis <SharitaZenaida R 09/30/17 12:37> (1) Pneumonia (2) ESRD (end stage renal disease) on dialysis (3) Chest pain (4) HTN (hypertension) (5) Diabetes mellitus (6) Nutrition, metabolism, and development symptoms (7) DVT prophylaxis <Lucrecia Lara 09/30/17 07:44> Inpatient Certification: I certify that the inpatient services were ordered in accordance with Medicare regulations governing the order. This includes certification that hospital inpatient services are reasonable and necessary and in the case of services not specified as inpatient-only under 42 CFR 419.22(n), that they are appropriately provided as inpatient services in accordance to with the 2-midnight benchmark under 43 CFR 412.3(e) <Zenaida Sheriff 09/30/17 12:37> I certify that the inpatient services were ordered in accordance with Medicare regulations governing the order. This includes certification that hospital inpatient services are reasonable and necessary and in the case of services not specified as inpatient-only under 42 CFR 419.22(n), that they are appropriately provided as inpatient services in accordance to with the 2-midnight benchmark under 43 CFR 412.3(e) <Lucrecia Lara 09/29/17 15:39> Estimated Total Length of Stay (Days): 3 <Lucrecia Lara 09/29/17 15:39> Plans for Post Hospital Care: Home <Lucrecia Lara 09/29/17 15:39> Review of Systems Constitutional: Reports chills, Reports night sweats, Denies fever(s), Denies weight loss <Lucrecia Lara 09/29/17 22:13> Cardiovascular: Reports chest pain (left sided sharp pain, constant since yesterday evening), Reports leg swelling, Denies lightheadedness, Denies radiating jaw, neck or arm pain <Lucrecia Lara 09/29/17 22:13> Respiratory: Reports cough, Reports shortness of breath (due to pain on inhalation) <Lucrecia Lara 09/29/17 22:13> Genitourinary: Denies difficulty urinating, Denies painful urination <Lucrecia Lara 09/29/17 22:13> Musculoskeletal: Denies muscle weakness, Denies numbness, Denies tingling < Lucrecia Lara 09/29/17 22:13> PMFSH - History History Provided By: Patient <Lucrecia Lara 09/29/17 15:39> - Medical History Medical History: Medical History (Last Reviewed 09/29/17 @ 08:48 by Lul Gillespie MD) AV fistula CAD (coronary artery disease) CHF (congestive heart failure) Diabetes Dialysis patient High cholesterol Hypertension Neuropathy Pancreatitis Renal failure <Zenaida Sheriff 09/30/17 12:37> Medical History (Last Reviewed 09/29/17 @ 08:48 by Lul Gillespie MD) AV fistula CAD (coronary artery disease) CHF (congestive heart failure) Diabetes Dialysis patient High cholesterol Hypertension Neuropathy Pancreatitis Renal failure <Lucrecia Lara 09/29/17 22:13> - Surgical History Surgical History: Surgical History (Last Reviewed 09/29/17 @ 08:48 by Lul Gillespie MD) H/O tubal ligation History of cholecystectomy Status post double vessel coronary artery bypass <Zenaida Sheriff 09/30/17 12:37> Surgical History (Last Reviewed 09/29/17 @ 08:48 by Lul Gillespie MD) H/O tubal ligation History of cholecystectomy Status post double vessel coronary artery bypass <Lucrecia Lara 09/29/17 15:39> - Tobacco History Tobacco Use In Past 30 Days: No <Lucrecia Lara 09/29/17 15:39> Smoking Status: Former smoker <Lucrecia Lara 09/29/17 15:39> - Alcohol History How Often Do You Have a Drink Containing Alcohol: Never <Lucrecia Lara 09/11 15:39> - Substance Use History Substance History: No History of Abuse <Lucrecia Lara 09/29/17 15:39> - Travel History Recent Travel in the [place] Within the Last 8 Weeks: No <Lucrecia Lara - 15:39> Recent Travel Out of the Country Within the Last 8 Weeks: No <Lucrecia Lara 09/29/17 15:39> - Immunization History Tetanus Immunization: >5 Years <Lucrecia Lara 09/29/17 15:39> Hx Influenza Vaccine This Season: Yes <Lucrecia Lara 09/29/17 15:39> Medications and Allergies Allergies Allergy/AdvReac Type Severity Reaction Status Date / Time shellfish derived AdvReac Mild Vomiting Verified 09/29/17 08:09 <Zenaida Sheriff 09/30/17 12:37> Home Medications Medication Instructions Recorded Confirmed Type amlodipine 10 mg PO DAILY 09/29/17 09/29/17 History aspirin [Aspir-81] 81 mg PO DAILY 09/29/17 09/29/17 History clopidogrel [Plavix] 75 mg PO DAILY 09/29/17 09/29/17 History enalapril maleate [Vasotec] 20 mg PO BID 09/29/17 09/29/17 History ferrous sulfate 325 mg PO BID 09/29/17 09/29/17 History folic acid 0.4 mg PO DAILY 09/29/17 09/29/17 History gabapentin 300 mg PO DAILY 09/29/17 09/29/17 History hydralazine 50 mg PO TID 09/29/17 09/29/17 History insulin glargine [Lantus U-100 15 unit SUB-Q DAILY 09/29/17 09/29/17 History Insulin] isosorbide mononitrate 120 mg PO QAM 09/29/17 09/29/17 History metoprolol tartrate 100 mg PO BID 09/29/17 09/29/17 History nitroglycerin [Nitrostat] 0.4 mg SUBLINGUAL Q5-15M PRN 09/29/17 09/29/17 History ondansetron HCl [Zofran] 4 mg PO Q6HR PRN 09/29/17 09/29/17 History pravastatin [Pravachol] 40 mg PO DAILY 09/29/17 09/29/17 History <Zenaida Sheriff 09/30/17 12:37> Active Medications: Active Medications Acetaminophen (Tylenol) 650 mg PO Q4H PRN PRN Reason: Temp > 100.4 Acetaminophen (Tylenol) 650 mg PO UNSCH PRN PRN Reason: SEE LABEL COMMENTS Clonidine HCl (Catapres) 0.1 mg PO UNSCH PRN PRN Reason: SEE LABEL COMMENTS Clopidogrel Bisulfate (Plavix) 75 mg PO DAILY [facility] Last Admin: 09/30/17 11:20 Dose: 75 mg Dextrose (D50w Vial) 50 ml IV.PUSH UNSCH PRN PRN Reason: PER HYPOGLYCEMIA PROTOCOL Last Admin: 09/30/17 09:48 Dose: 50 ml Diphenhydramine HCl (Benadryl) 25 mg PO UNSCH PRN PRN Reason: SEE LABEL COMMENTS Last Admin: 09/30/17 03:20 Dose: 25 mg Gabapentin (Neurontin) 300 mg PO DAILY [facility] Last Admin: 09/30/17 11:20 Dose: 300 mg Gelatin (Gelfoam 12 Mm/7 Mm Topical) 1 foam TOPICAL PRN PRN PRN Reason: help stop bleeding from site Gentamicin Sulfate (Gentamicin Inj) 20 mg OTHER WITH DIALYSIS PRN PRN Reason: Dwell Gentamycin Lock Glucagon (Glucagon Inj) 1 mg OTHER PRN PRN PRN Reason: for Hypoglycemia Protocol Heparin Sodium (Porcine) (Heparin Inj) 5,000 units SQ Q8H [facility] Last Admin: 09/30/17 11:20 Dose: 5,000 units Heparin Sodium (Porcine) (Heparin Inj) 8,000 units IV.FLUSH WITH DIALYSIS PRN PRN Reason: for machine prime Heparin Sodium (Porcine) (Heparin Inj) 1,000 units OTHER WITH DIALYSIS PRN PRN Reason: Dwell Heparin to Fill Catheter Albumin Human (Flexbumin 25% Inj) 100 mls @ 60 mls/hr IV.SIG WITH DIALYSIS PRN PRN Reason: hypotension / volume replace Sodium Chloride (Ns Inj) 1,000 mls @ 0 mls/hr OTHER .Q0M PRN PRN Reason: for prime and rinse back Sodium Chloride (Ns Inj) 1,000 mls @ 200 mls/hr OTHER .Q5H PRN PRN Reason: for dialyzer flush PRN Sodium Chloride (Ns Inj) 1,000 mls @ 0 mls/hr IV.CONT .Q0M PRN PRN Reason: hypotension / volume replace Cefepime HCl 500 mg/ Sodium (Chloride) 100 mls @ 200 mls/hr IV.SIG DAILY [facility] Last Infusion: 09/30/17 12:03 Dose: Infused Insulin Aspart (Novolog Insulin Suppl Scale Inj) 0 unit SQ ACHS [facility]; Protocol Last Admin: 09/30/17 11:21 Dose: Not Given Insulin Detemir (Levemir Inj) 15 unit SQ HS [facility] Last Admin: 09/29/17 23:36 Dose: 15 unit Mannitol (Mannitol Inj) 12.5 gm IV.PUSH PRN PRN PRN Reason: hypotension / volume replace Metoprolol Tartrate (Lopressor) 100 mg PO BID [facility] Last Admin: 09/30/17 11:20 Dose: 100 mg Morphine Sulfate (Morphine Inj) 2 mg IV.PUSH Q3H PRN PRN Reason: PAIN 3-5; IF UABLE TO TAKE PO Morphine Sulfate (Morphine Inj) 4 mg IV.PUSH Q3H PRN PRN Reason: PAIN 6-10;IF UNABLE TO TAKE PO Last Admin: 09/29/17 23:27 Dose: 4 mg Naloxone HCl (Narcan Inj) 0.4 mg IV.PUSH UNSCH PRN PRN Reason: SEE LABEL COMMENTS Nitroglycerin (Nitrostat Sl) 0.4 mg SL Q5M PRN PRN Reason: CHEST PAIN Ondansetron HCl (Zofran Odt) 4 mg PO Q6H PRN PRN Reason: NAUSEA OR VOMITING Ondansetron HCl (Zofran Inj) 4 mg IV.PUSH UNSCH PRN PRN Reason: NAUSEA OR VOMITING Pravastatin Sodium (Pravachol) 40 mg PO DAILY [facility] Last Admin: 09/30/17 11:21 Dose: 40 mg Senna/Docusate Sodium (Jana-Colace) 1 tab PO BID [facility] Last Admin: 09/30/17 11:20 Dose: 1 tab Sodium Chloride (Ns Flush) 2 ml IV.FLUSH UNSCH PRN PRN Reason: FLUSH AFTER USING IV ACCESS Last Admin: 09/29/17 14:35 Dose: 2 ml Sodium Chloride (Ns Flush) 5 ml IV.FLUSH PRN PRN PRN Reason: flush each lumen during HD <Zenaida Sheriff - 09/30/17 12:37> Active Medications Acetaminophen (Tylenol) 650 mg PO Q4H PRN PRN Reason: Temp > 100.4 Clopidogrel Bisulfate (Plavix) 75 mg PO DAILY [facility] Gabapentin (Neurontin) 300 mg PO DAILY [facility] Heparin Sodium (Porcine) (Heparin Inj) 5,000 units SQ Q8H [facility] Metoprolol Tartrate (Lopressor) 100 mg PO BID [facility] Non-Formulary Medication (Insulin Glargine) 15 unit SQ HS [facility] Ondansetron HCl (Zofran Inj) 4 mg IV.PUSH Q6H PRN PRN Reason: NAUSEA OR VOMITING Pravastatin Sodium (Pravachol) 40 mg PO DAILY [facility] Senna/Docusate Sodium (Jana-Colace) 1 tab PO BID [facility] Sodium Chloride (Ns Flush) 2 ml IV.FLUSH UNSCH PRN PRN Reason: FLUSH AFTER USING IV ACCESS Last Admin: 09/29/17 14:35 Dose: 2 ml <Lucrecia Lara - 09/29/17 15:39> Exam Vital signs: Vital Signs 09/29/17 13:45 09/29/17 14:00 09/29/17 14:15 Temperature Pulse Rate 84 82 84 Respiratory Rate 16 16 17 Blood Pressure 212/93 H 193/90 H 196/106 H Pulse Oximetry 09/29/17 14:30 09/29/17 14:45 09/29/17 20:25 Temperature 99.4 F Pulse Rate 84 84 98 H Respiratory Rate 17 18 18 Blood Pressure 218/94 H 196/78 H 191/86 H Pulse Oximetry 96 09/30/17 00:00 09/30/17 04:00 09/30/17 05:33 Temperature 100.8 F H 98.7 F Pulse Rate 94 H 85 Respiratory Rate 20 20 Blood Pressure 172/80 H 159/72 H Pulse Oximetry 100 99 98 09/30/17 08:00 Temperature 98.7 F Pulse Rate 82 Respiratory Rate 20 Blood Pressure 171/81 H Pulse Oximetry 98 Intake & Output 09/29/17 09/30/17 09/30/17 18:59 06:59 18:59 Intake Total 480 / 480 100 / 100 Balance 480 / 480 100 / 100 Weight 62.596 kg 61.7 kg Intake: IV 100 / 100 Maxipime Inj 500 MG In NS Inj 100 / 100 100 ML @ 200 mls/hr IV.SIG DAILY [facility] Rx#:[id number] Oral 480 / 480 Other: # Voids 2 # Bowel Movements 0 Weight On Admission 62 kg <Zenaida Sheriff R - 09/30/17 12:37> Vital Signs 09/29/17 07:55 09/29/17 08:09 09/29/17 13:45 Temperature 98.0 F Pulse Rate 77 76 84 Respiratory Rate 21 16 16 Blood Pressure 186/84 H 177/84 H 212/93 H Pulse Oximetry 100 98 09/29/17 14:00 09/29/17 14:15 09/29/17 14:30 Temperature Pulse Rate 82 84 84 Respiratory Rate 16 17 17 Blood Pressure 193/90 H 196/106 H 218/94 H Pulse Oximetry 09/29/17 14:45 Temperature Pulse Rate 84 Respiratory Rate 18 Blood Pressure 196/78 H Pulse Oximetry Intake & Output 09/28/17 09/29/17 09/29/17 18:59 06:59 18:59 Weight 62.596 kg <Lucrecia Lara 09/29/17 15:39> - Constitutional mild distress <Lucrecia Lara 09/29/17 22:02> Comments: patient sitting up in bed, uncomfortably, gripping left lower ribs, tearful <Lucrecia Lara 09/29/17 22:02> - Routine HEENT Exam Head: Present: normocephalic, atraumatic <Lucrecia Lara 09/29/17 22:02> Eye: Present: EOMI, PERRL <Lucrecia Lara 09/29/17 22:02> - Routine Neck Exam Present: trachea midline. Absent: trauma <Lucrecia Lara 09/29/17 22:02> - Routine Chest/Breast/Axilla Exam Chest wall: Present: tenderness (to light palpation on left side chest wall along lower ribs. no rash, ecchymosis or erythema. midline scar from prior cardiac surgery, well healed. ) <Lucrecia Lraa 09/29/17 22:02> Comments: dialysis port in place under clean bandage on right side of chest below clavicle, no tenderness, erythema, or warmth of area surrounding dialysis port <Lucrecia Lara 09/29/17 22:02> - Routine Respiratory Exam Present: crackles (mild in left lung base), diminished air movement (due to pain ) <[facility] 09/29/17 22:02> - Routine Cardiovascular Exam Present: RRR. Absent: murmur <[facility] 09/29/17 22:02> - Routine Abdominal Exam Present: soft, normoactive bowel sounds, surgical scars (from prior gallbladder surgery. well healed. ). Absent: tenderness <[facility] 09/29/17 22:02 > - Routine Extremities Exam Present: edema (1-2+ pitting edema in lower extremities ), pulses intact, normal capillary refill <[facility] 09/29/17 22:02> - Routine Skin Exam Present: dry, warm <[facility] 09/29/17 22:02> - Routine Neurological Exam Present: alert, oriented X3, normal speech <[facility] 09/29/17 22:02> Results - Labs Result diagrams: 09/30/17 07:31 09/30/17 07:31 <Zenaida Sheriff - 09/30/17 12:37> Abnormal lab results 09/29/17 09/30/17 09/30/17 Range/Units 23:35 07:31 07:31 Neut % (Auto) 70.3 H (16.0-70.0) % Snyder % (Auto) 11.4 H (0.0-8.0) % BUN 32 H (7-18) mg/dL Creatinine 4.00 H (0.50-1.00) mg/dL Estimated GFR 14 L (>89) mL/min POC Glucose 240 H (68-110) mg/dl Fasting Glucose 69 L (74-99) mg/dL Alkaline Phosphatase 475 H (45-117) U/L Albumin 3.2 L (3.4-5.0) g/dL 09/30/17 09/30/17 09/30/17 Range/Units 09:15 09:42 11:51 Neut % (Auto) (16.0-70.0) % Snyder % (Auto) (0.0-8.0) % BUN (7-18) mg/dL Creatinine (0.50-1.00) mg/dL Estimated GFR (>89) mL/min POC Glucose 44 L* 53 L 347 H (68-110) mg/dl Fasting Glucose (74-99) mg/dL Alkaline Phosphatase (45-117) U/L Albumin (3.4-5.0) g/dL Short CBC 09/30/17 Range/Units 07:31 WBC 6.9 (4.0-11.0) th/mm3 Hgb 13.4 (11.6-15.3) gm/dL Hct 41.2 (35.0-46.0) % Plt Count 281 (150-450) th/mm3 BMP 09/30/17 07:31 Sodium 141 Potassium 3.7 D Chloride 104 Carbon Dioxide 24.7 BUN 32 H Creatinine 4.00 H Calcium 8.9 Cardiac Enzymes 09/30/17 09/30/17 Range/Units 00:20 07:31 Troponin I 0.04 0.03 (0.02-0.05) ng/mL Liver Function 09/30/17 Range/Units 07:31 Total Bilirubin 0.6 (0.2-1.0) mg/dL AST 15 (15-37) U/L ALT 25 (10-53) U/L Alkaline Phosphatase 475 H (45-117) U/L Albumin 3.2 L (3.4-5.0) g/dL <Zenaida Sheriff - 09/30/17 12:37> Abnormal lab results 09/29/17 09/29/17 09/29/17 Range/Units 09:40 09:40 09:40 Neut % (Auto) (16.0-70.0) % Lymph % (Auto) (9.0-44.0) % Snyder % (Auto) (0.0-8.0) % Lymph # (Auto) (1.0-4.8) th/mm3 APTT 22.6 L (24.3-30.1) sec D-Dimer Quant (PE/DVT) 1.16 H (0.00-0.50) mg/L FEU Carbon Dioxide 19.2 L (21.0-32.0) meq/L BUN 45 H (7-18) mg/dL Creatinine 4.68 H (0.50-1.00) mg/dL Estimated GFR 12 L (>89) mL/min Magnesium 2.7 H (1.5-2.5) mg/dL Alkaline Phosphatase 517 H (45-117) U/L Troponin I Less than 0.02 L (0.02-0.05) ng/mL Total Protein 8.3 H (6.4-8.2) g/dL 09/29/17 Range/Units 10:30 Neut % (Auto) 77.3 H (16.0-70.0) % Lymph % (Auto) 7.5 L (9.0-44.0) % Snyder % (Auto) 11.1 H (0.0-8.0) % Lymph # (Auto) 0.6 L (1.0-4.8) th/mm3 APTT (24.3-30.1) sec D-Dimer Quant (PE/DVT) (0.00-0.50) mg/L FEU Carbon Dioxide (21.0-32.0) meq/L BUN (7-18) mg/dL Creatinine (0.50-1.00) mg/dL Estimated GFR (>89) mL/min Magnesium (1.5-2.5) mg/dL Alkaline Phosphatase (45-117) U/L Troponin I (0.02-0.05) ng/mL Total Protein (6.4-8.2) g/dL Short CBC 09/29/17 Range/Units 10:30 WBC 8.0 (4.0-11.0) th/mm3 Hgb 13.6 (11.6-15.3) gm/dL Hct 40.2 (35.0-46.0) % Plt Count 281 (150-450) th/mm3 BMP 09/29/17 09:40 Sodium 138 Potassium 5.1 Chloride 107 Carbon Dioxide 19.2 L BUN 45 H Creatinine 4.68 H Calcium 8.7 Cardiac Enzymes 09/29/17 Range/Units 09:40 Total Creatine Kinase 99 (26-192) U/L Troponin I Less than 0.02 L (0.02-0.05) ng/mL Liver Function 09/29/17 Range/Units 09:40 Total Bilirubin 0.5 (0.2-1.0) mg/dL AST 27 (15-37) U/L ALT 34 (10-53) U/L Alkaline Phosphatase 517 H (45-117) U/L Albumin 3.5 (3.4-5.0) g/dL <Lucrecia Lara - 09/29/17 15:39> - Imaging Impressions Ribs X-Ray 09/29/17 00:00 CONCLUSION: No definite rib fractures are demonstrated. Pulmonary Perfusion Imaging 09/29/17 09:44 CONCLUSION: 1. Low probability for PE. <Zenaida Sheriff - 09/30/17 12:37> Impressions Chest X-Ray 09/29/17 08:09 CONCLUSION: 1. Left basilar airspace disease 2. Median sternotomy wires status post open heart surgery. 3. Mild cardiomegaly. 4. Stable dialysis catheter. Pulmonary Perfusion Imaging 09/29/17 09:44 CONCLUSION: 1. Low probability for PE. <Lucrecia Lara - 09/29/17 15:39> Caprini VTE Risk Assessment Caprini VTE Risk Assessment: Moderate/High Risk (score >= 2) <Lucrecia Lara - 09/29/17 22:13> Caprini Risk Assessment Model: Point Value = 1 Point Value = 2 Point Value = 3 Point Value = 5 Age 41-60 Minor surgery BMI > 25 kg/m2 Swollen legs Varicose veins or History of unexplained or recurrent spontaneous Oral contraceptives or hormone replacement Sepsis (< 1 month) Serious lung disease, including pneumonia (< 1 month) Abnormal pulmonary function Acute myocardial infarction Congestive heart failure (< 1 month) History of inflammatory bowel disease Medical patient at bed rest Age 61-74 Arthroscopic surgery Major open surgery (> 45 min) Laparoscopic surgery (> 45 min) Malignancy Confined to bed (> 72 hours) Immobilizing plaster cast Central venous access Age >= 75 History of VTE Family history of VTE Factor V Leiden Prothrombin [id number] Lupus anticoagulant Anticardiolipin antibodies Elevated serum homocysteine Heparin-induced thrombocytopenia Other congenital or acquired thrombophilia Stroke (< 1 month) Elective arthroplasty Hip, pelvis, or leg fracture Acute spinal cord injury (< 1 month) <Zenaida Sheriff - 09/30/17 12:37> Point Value = 1 Point Value = 2 Point Value = 3 Point Value = 5 Age 41-60 Minor surgery BMI > 25 kg/m2 Swollen legs Varicose veins or History of unexplained or recurrent spontaneous Oral contraceptives or hormone replacement Sepsis (< 1 month) Serious lung disease, including pneumonia (< 1 month) Abnormal pulmonary function Acute myocardial infarction Congestive heart failure (< 1 month) History of inflammatory bowel disease Medical patient at bed rest Age 61-74 Arthroscopic surgery Major open surgery (> 45 min) Laparoscopic surgery (> 45 min) Malignancy Confined to bed (> 72 hours) Immobilizing plaster cast Central venous access Age >= 75 History of VTE Family history of VTE Factor V Leiden Prothrombin [id number] Lupus anticoagulant Anticardiolipin antibodies Elevated serum homocysteine Heparin-induced thrombocytopenia Other congenital or acquired thrombophilia Stroke (< 1 month) Elective arthroplasty Hip, pelvis, or leg fracture Acute spinal cord injury (< 1 month) <Lucrecia Lara B - 09/29/17 22:13> Prophylaxis Regimen: Total Risk Factor Score Risk Level Prophylaxis Regimen 0-1 Low Early ambulation 2 Moderate Order ONE of the following: *Sequential Compression Device (SCD) *Heparin 5000 units SQ BID 3-4 Higher Order ONE of the following medications: *Heparin 5000 units SQ TID *Enoxaparin/Lovenox 40 mg SQ daily (WT < 150 kg, CrCl > 30 mL/min) *Enoxaparin/Lovenox 30 mg SQ daily (WT < 150 kg, CrCl > 10-29 mL/min) *Enoxaparin/Lovenox 30 mg SQ BID (WT < 150 kg, CrCl > 30 mL/min) AND/OR *Sequential Compression Device (SCD) 5 or more Highest Order ONE of the following medications: *Heparin 5000 units SQ TID (Preferred with Epidurals) *Enoxaparin/Lovenox 40 mg SQ daily (WT < 150 kg, CrCl > 30 mL/min) *Enoxaparin/Lovenox 30 mg SQ daily (WT < 150 kg, CrCl > 10-29 mL/min) *Enoxaparin/Lovenox 30 mg SQ BID (WT < 150 kg, CrCl > 30 mL/min) AND *Sequential Compression Device (SCD) <Zenaida Sheriff - 09/30/17 12:37> Total Risk Factor Score Risk Level Prophylaxis Regimen 0-1 Low Early ambulation 2 Moderate Order ONE of the following: *Sequential Compression Device (SCD) *Heparin 5000 units SQ BID 3-4 Higher Order ONE of the following medications: *Heparin 5000 units SQ TID *Enoxaparin/Lovenox 40 mg SQ daily (WT < 150 kg, CrCl > 30 mL/min) *Enoxaparin/Lovenox 30 mg SQ daily (WT < 150 kg, CrCl > 10-29 mL/min) *Enoxaparin/Lovenox 30 mg SQ BID (WT < 150 kg, CrCl > 30 mL/min) AND/OR *Sequential Compression Device (SCD) 5 or more Highest Order ONE of the following medications: *Heparin 5000 units SQ TID (Preferred with Epidurals) *Enoxaparin/Lovenox 40 mg SQ daily (WT < 150 kg, CrCl > 30 mL/min) *Enoxaparin/Lovenox 30 mg SQ daily (WT < 150 kg, CrCl > 10-29 mL/min) *Enoxaparin/Lovenox 30 mg SQ BID (WT < 150 kg, CrCl > 30 mL/min) AND *Sequential Compression Device (SCD) <Lucrecia Lara - 09/29/17 22:13> Assessment and Plan - Assessment (1) Pneumonia Code(s): J18.9 - Pneumonia, unspecified organism Status: Acute (2) ESRD (end stage renal disease) on dialysis Code(s): N18.6 - End stage renal disease; Z99.2 - Dependence on renal dialysis Status: Acute (3) Chest pain Code(s): R07.9 - Chest pain, unspecified Status: Acute (4) HTN (hypertension) Code(s): I10 - Essential (primary) hypertension Status: Acute (5) Diabetes mellitus Code(s): E11.9 - Type 2 diabetes mellitus without complications Status: Acute (6) Nutrition, metabolism, and development symptoms Code(s): R63.8 - Other symptoms and signs concerning food and fluid intake Status: Acute (7) DVT prophylaxis Status: Acute <Zenaida Sheriff - 09/30/17 12:37> (1) Pneumonia Code(s): J18.9 - Pneumonia, unspecified organism Status: Acute Plan: Patient complaining of mild intermittent cough and difficulty breathing due to pain in left chest. Imaging ordered in emergency department showed ventilation defect on V/Q scan and left basilar infiltrate on CXR, suspicious for pneumonia. imaging: -CXR done in ED showed left basilar infiltrate, possible pneumonia labs: -CBC ordered in ED was 8.0, within normal limits meds: -Patient given Azithromycin 500mg IV and Cefepime 1g IV in the ED -Discussed renal adjustment of antibiotics for patient on dialysis with pharmacy over the phone who recommend Cefepime 500 mg IV daily. (2) ESRD (end stage renal disease) on dialysis Code(s): N18.6 - End stage renal disease; Z99.2 - Dependence on renal dialysis Status: Acute Plan: Patient received dialysis on MWF schedule. Patient was transferred from dialysis clinic today prior to receiving scheduled dialysis due to chest pain. Will consult nephrology for evaluation and possible dialysis (3) Chest pain Code(s): R07.9 - Chest pain, unspecified Status: Acute Plan: Patient complaining of sharp left sided chest pain, just below the left breast, tender to palpation. Patient also notes difficultly taking deep breaths due to pain. labs: -Troponin I negative 1x. Will continue to monitor serial troponin I -EKG in the ED: normal sinus rhythm, no ST elevations -D-dimer high at 1.16. V/Q hernandez ordered due to patients inability to receive contrast for CT due to her ESRD for rule out of pulmonary embolism. Imaging: -CXR showed left basilar infiltrates -V/Q scan ordered in ED showed low perfusion in left lung base -Will order bilateral rib XR medications: -NTG given en route to hospital, without resolution of pain -Will give Morphine 2mg IV PRN pain 3-5, or Morphine 4mg IV PRN pain 6-10 (4) HTN (hypertension) Code(s): I10 - Essential (primary) hypertension Status: Acute Plan: Patient has a history of HTN -will continue home medications, including metoprolol 100 mg PO BID -patient given enalapril 10 mg PO, hydralazine 50 mg PO and amlodipine 10 PO in ED (5) Diabetes mellitus Code(s): E11.9 - Type 2 diabetes mellitus without complications Status: Acute Plan: Patient has a history of DM. BGL 88 on admission. -Will continue patient's home dose of Levemir 15u HS (6) Nutrition, metabolism, and development symptoms Code(s): R63.8 - Other symptoms and signs concerning food and fluid intake Status: Acute Plan: Fluids: None Nutrition: Will place patient on renal, heart health and diabetic diet Electrolytes: Will monitor and replete as needed (7) DVT prophylaxis Status: Acute Plan: DVT Prophylaxis: Heparin IV q8hr <Lucrecia Lara - 09/30/17 07:44> - Attending Attestation Patient dw the resident team. Agree with admission and assessment and plan as documented above. <Zenaida Sheriff - 09/30/17 12:37> <Lucrecia Lara - Last Filed: 09/30/17 07:44> (1) Pneumonia Qualifiers: Pneumonia type: due to unspecified organism Laterality: left Lung location: lower lobe of lung Qualified Code(s): J18.1 - Lobar pneumonia, unspecified organism (3) Chest pain Qualifiers: Chest pain type: unspecified Qualified Code(s): R07.9 - Chest pain, unspecified <Zenaida Sheriff R - Last Filed: 09/30/17 12:37> (1) Pneumonia Qualifiers: Pneumonia type: due to unspecified organism Laterality: left Lung location: lower lobe of lung Qualified Code(s): J18.1 - Lobar pneumonia, unspecified organism (3) Chest pain Qualifiers: Chest pain type: unspecified Qualified Code(s): R07.9 - Chest pain, unspecified <Lucrecia Lara - Last Filed: 09/30/17 07:44> (1) Pneumonia Qualifiers: Pneumonia type: due to unspecified organism Laterality: left Lung location: lower lobe of lung Qualified Code(s): J18.1 - Lobar pneumonia, unspecified organism (3) Chest pain Qualifiers: Chest pain type: unspecified Qualified Code(s): R07.9 - Chest pain, unspecified <Zenaida Sheriff - Last Filed: 09/30/17 12:37> (1) Pneumonia Qualifiers: Pneumonia type: due to unspecified organism Laterality: left Lung location: lower lobe of lung Qualified Code(s): J18.1 - Lobar pneumonia, unspecified organism (3) Chest pain Qualifiers: Chest pain type: unspecified Qualified Code(s): R07.9 - Chest pain, unspecified
[2017-09-29] MEDS ORDERED: Naloxone Inj 0.4 MG/ML Vial IV.PUSH PRN (16:06)
[2017-09-29] MEDS ORDERED: Morphine Sulfate Inj 2 MG/ML Vial IV.PUSH PRN (16:06)
--- NOTE | 2017-09-29 16:23 | XR ---
EXAM DATE: 09/29/2017 4:17 PM EDT AGE/SEX: 52 years / Female INDICATIONS: Left anterior chest and rib pain after recent CABG and shortness of breath. CLINICAL DATA: This is the patient's initial encounter. Patient reports that signs and symptoms have been present for 2 days and indicates a pain score of 9/10. MEDICAL/SURGICAL HISTORY: None. CABG. Dialysis catheter, right chest. COMPARISON: [facility] [place], CHEST 1V SINGLE AP, 09/29/2017. . FINDINGS: There is no evidence of displaced fracture. No destructive lesions or areas of periosteal thickening are seen. Expiratory view of the chest is negative for pneumothorax. The mediastinal structures ar e midline. The heart size is enlarged. There is evidence of previous cardiothoracic surgery. There i s some mild atelectasis in the left lower lung. No significant changes compared to the prior study. CONCLUSION: No definite rib fractures are demonstrated. Electronically signed by: Jacob Castellon MD 09/29/2017 4:21 PM EDT
[2017-09-29] MEDS ORDERED: Albumin Human 25% Inj 100 ML IV.SIG PRN (16:49)
[2017-09-29] MEDS ORDERED: Sod Chloride 0.9% Inj 1,000 ML OTHER PRN ×2 (16:49)
[2017-09-29] MEDS ORDERED: Gelatin 12 MM/7 MM Topical Foam TOPICAL PRN (16:49)
[2017-09-29] MEDS ORDERED: Heparin 10,000 UNITS/10 ML Vial (for IV use) OTHER PRN (16:49)
[2017-09-29] MEDS ORDERED: Sod Chloride 0.9% Inj 1,000 ML IV.CONT PRN (16:49)
[2017-09-29] MEDS ORDERED: Heparin 10,000 UNITS/10 ML Vial (for IV use) IV.FLUSH PRN (16:49)
--- NOTE | 2017-09-29 17:22 | P.CONNP ---
<Rhona Ansari - Last Filed: 09/29/17 17:02> History of Present Illness Service: Nephrology Consult date: 09/29/17 Reason for Consult: ESRD on HD Primary Care Provider: Abdulkadir Campos DO Chief Complaint: Chest Pain History of Present Illness: This is a 52 y/o AAF patient maintained on HD three times weekly (MWF). She was at HD today and prior to treatment, reported chest pain that radiated around her back. She was sent to ER for evaluation. She has a history of CAD s/p CABG, ischemic cardiomyopathy, CHF with ejection fraction 55-60%, hypertension, insulin-dependent diabetes, hyperlipidemia, diabetic neuropathy, and prior GI bleed. VQ was negative for PE earlier today. She is seen during dialysis today, immediately began shivering and temperature recorded at 100.0 orally. She denies fever at home, no cough, N/V, or abdominal pain. She also denies dysuria and diarrhea. We are using a CVC for dialysis. It was placed around April of this year. Her AVF is not ready for use. In the ER she was given Zithromax and Cefepime for treatment of pneumonia. She is a full code, we were consulted to assist with dialysis management. Review of Systems Constitutional: Reports chills, Reports fever(s), Denies lack of energy, Denies weight gain, Denies weight loss Cardiovascular: Reports chest pain, Denies fainting, Denies shortness of breath , Denies shortness of breath with activity, Denies shortness of breath when lying down, Denies shortness of breath causing sudden awakening Respiratory: Denies cough, Denies shortness of breath Gastrointestinal: Denies abdominal pain PMFSH - History History Provided By: Patient - Medical History Medical History: Medical History (Last Reviewed 09/29/17 @ 08:48 by Lul Gillespie MD) AV fistula CAD (coronary artery disease) CHF (congestive heart failure) Diabetes Dialysis patient High cholesterol Hypertension Neuropathy Pancreatitis Renal failure - Surgical History Surgical History: Surgical History (Last Reviewed 09/29/17 @ 08:48 by Lul Gillespie MD) H/O tubal ligation History of cholecystectomy Status post double vessel coronary artery bypass - Tobacco History Second Hand Smoke Exposure: No Tobacco Use In Past 30 Days: No Smoking Status: Former smoker Smoking End Date: 2016 - Alcohol History How Often Do You Have a Drink Containing Alcohol: Never - Substance Use History Substance History: No History of Abuse - Travel History History of Recent Travel: No Recent Travel in the [place] Within the Last 8 Weeks: No Recent Travel Out of the Country Within the Last 8 Weeks: No - Immunization History Tetanus Immunization: >5 Years Hx Influenza Vaccine This Season: Yes Medications and Allergies Allergies Allergy/AdvReac Type Severity Reaction Status Date / Time shellfish derived AdvReac Mild Vomiting Verified 09/29/17 08:09 Home Medications Medication Instructions Recorded Confirmed Type amlodipine 10 mg PO DAILY 09/29/17 09/29/17 History aspirin [Aspir-81] 81 mg PO DAILY 09/29/17 09/29/17 History clopidogrel [Plavix] 75 mg PO DAILY 09/29/17 09/29/17 History enalapril maleate [Vasotec] 20 mg PO BID 09/29/17 09/29/17 History ferrous sulfate 325 mg PO BID 09/29/17 09/29/17 History folic acid 0.4 mg PO DAILY 09/29/17 09/29/17 History gabapentin 300 mg PO DAILY 09/29/17 09/29/17 History hydralazine 50 mg PO TID 09/29/17 09/29/17 History insulin glargine [Lantus U-100 15 unit SUB-Q DAILY 09/29/17 09/29/17 History Insulin] isosorbide mononitrate 120 mg PO QAM 09/29/17 09/29/17 History metoprolol tartrate 100 mg PO BID 09/29/17 09/29/17 History nitroglycerin [Nitrostat] 0.4 mg SUBLINGUAL Q5-15M PRN 09/29/17 09/29/17 History ondansetron HCl [Zofran] 4 mg PO Q6HR PRN 09/29/17 09/29/17 History pravastatin [Pravachol] 40 mg PO DAILY 09/29/17 09/29/17 History Active Medications: Active Medications Acetaminophen (Tylenol) 650 mg PO Q4H PRN PRN Reason: Temp > 100.4 Acetaminophen (Tylenol) 650 mg PO UNSCH PRN PRN Reason: SEE LABEL COMMENTS Clonidine HCl (Catapres) 0.1 mg PO UNSCH PRN PRN Reason: SEE LABEL COMMENTS Clopidogrel Bisulfate (Plavix) 75 mg PO DAILY [facility] Diphenhydramine HCl (Benadryl) 25 mg PO UNSCH PRN PRN Reason: SEE LABEL COMMENTS Gabapentin (Neurontin) 300 mg PO DAILY [facility] Gelatin (Gelfoam 12 Mm/7 Mm Topical) 1 foam TOPICAL PRN PRN PRN Reason: help stop bleeding from site Gentamicin Sulfate (Gentamicin Inj) 20 mg OTHER WITH DIALYSIS PRN PRN Reason: Dwell Gentamycin Lock Heparin Sodium (Porcine) (Heparin Inj) 5,000 units SQ Q8H [facility] Heparin Sodium (Porcine) (Heparin Inj) 8,000 units IV.FLUSH WITH DIALYSIS PRN PRN Reason: for machine prime Heparin Sodium (Porcine) (Heparin Inj) 1,000 units OTHER WITH DIALYSIS PRN PRN Reason: Dwell Heparin to Fill Catheter Albumin Human (Flexbumin 25% Inj) 100 mls @ 60 mls/hr IV.SIG WITH DIALYSIS PRN PRN Reason: hypotension / volume replace Sodium Chloride (Ns Inj) 1,000 mls @ 0 mls/hr OTHER .Q0M PRN PRN Reason: for prime and rinse back Sodium Chloride (Ns Inj) 1,000 mls @ 200 mls/hr OTHER .Q5H PRN PRN Reason: for dialyzer flush PRN Sodium Chloride (Ns Inj) 1,000 mls @ 0 mls/hr IV.CONT .Q0M PRN PRN Reason: hypotension / volume replace Insulin Detemir (Levemir Inj) 15 unit SQ HS [facility] Mannitol (Mannitol Inj) 12.5 gm IV.PUSH PRN PRN PRN Reason: hypotension / volume replace Metoprolol Tartrate (Lopressor) 100 mg PO BID [facility] Morphine Sulfate (Morphine Inj) 2 mg IV.PUSH Q3H PRN PRN Reason: PAIN 3-5; IF UABLE TO TAKE PO Morphine Sulfate (Morphine Inj) 4 mg IV.PUSH Q3H PRN PRN Reason: PAIN 6-10;IF UNABLE TO TAKE PO Naloxone HCl (Narcan Inj) 0.4 mg IV.PUSH UNSCH PRN PRN Reason: SEE LABEL COMMENTS Nitroglycerin (Nitrostat Sl) 0.4 mg SL Q5M PRN PRN Reason: CHEST PAIN Ondansetron HCl (Zofran Odt) 4 mg PO Q6H PRN PRN Reason: NAUSEA OR VOMITING Ondansetron HCl (Zofran Inj) 4 mg IV.PUSH UNSCH PRN PRN Reason: NAUSEA OR VOMITING Pravastatin Sodium (Pravachol) 40 mg PO DAILY [facility] Senna/Docusate Sodium (Jana-Colace) 1 tab PO BID [facility] Sodium Chloride (Ns Flush) 2 ml IV.FLUSH UNSCH PRN PRN Reason: FLUSH AFTER USING IV ACCESS Last Admin: 09/29/17 14:35 Dose: 2 ml Sodium Chloride (Ns Flush) 5 ml IV.FLUSH PRN PRN PRN Reason: flush each lumen during HD Exam Vital signs: Vital Signs 09/29/17 07:55 09/29/17 08:09 09/29/17 13:45 Temperature 98.0 F Pulse Rate 77 76 84 Respiratory Rate 21 16 16 Blood Pressure 186/84 H 177/84 H 212/93 H Pulse Oximetry 100 98 09/29/17 14:00 09/29/17 14:15 09/29/17 14:30 Temperature Pulse Rate 82 84 84 Respiratory Rate 16 17 17 Blood Pressure 193/90 H 196/106 H 218/94 H Pulse Oximetry 09/29/17 14:45 Temperature Pulse Rate 84 Respiratory Rate 18 Blood Pressure 196/78 H Pulse Oximetry Intake & Output 09/28/17 09/29/17 09/29/17 18:59 06:59 18:59 Weight 62.596 kg - Constitutional no acute distress, thin Comments: rigors/chills during dialysis - Routine HEENT Exam Head: Present: normocephalic - Routine Neck Exam Present: supple, full ROM - Routine Respiratory Exam Present: CTA bilaterally. Absent: accessory muscle use - Routine Cardiovascular Exam Present: RRR, S1, S2 - Routine Abdominal Exam Present: soft, normoactive bowel sounds - Routine Extremities Exam Absent: edema, Meera's sign, tenderness - Routine Skin Exam Present: intact, warm - Routine Neurological Exam Present: alert, oriented X3 Results - Lab Results 09/29/17 10:30 09/29/17 09:40 Most recent lab results Calcium 8.7 mg/dL (8.5-10.1) 09/29/17 09:40 Magnesium 2.7 mg/dL (1.5-2.5) H 09/29/17 09:40 Assessment and Plan - Assessment (1) ESRD (end stage renal disease) on dialysis Code(s): N18.6 - End stage renal disease; Z99.2 - Dependence on renal dialysis Status: Acute Plan: Seen during dialysis today on a 2K, 350 BFR, 3L. Continue HD on MWF. We are using CVC for HD. It is possible she has catheter associated infection. Pending cultures, may need temporary HD catheter for the time being. Avoid gadolinium and IVF. Monitor electrolytes and fluid status. Obtain phosphorus level in AM. Protect left arm from procedures. Her AVF is not ready yet, had appointment with Dr. Cobos today but missed due to hospitalization. (2) Chest pain Code(s): R07.9 - Chest pain, unspecified Status: Acute Plan: Etiology unclear. Has not seen Dr. Lee since CABG. VQ negative for PE. EKG unremarkable. May need cardiology evaluation. (3) Fever and chills Code(s): R50.9 - Fever, unspecified Status: Acute Onset Date: ~09/29/17 Plan: Blood culture drawn from CVC. If positive will need vas cath temporarily. Will give 1 g Vancomycin now. Given Azithromycin and Cefepime in ER. (4) HTN (hypertension) Code(s): I10 - Essential (primary) hypertension Status: Acute Plan: She is hypertensive today. Fluid removal with dialysis. Resume home antihypertensives and titrate as needed. <Pierce Dawn - Last Filed: 10/02/17 08:10> History of Present Illness Primary Care Provider: Abdulkadir Campos DO [facility] - Medical History Medical History: Medical History (Last Reviewed 09/29/17 @ 08:48 by Lul Gillespie MD) AV fistula CAD (coronary artery disease) CHF (congestive heart failure) Diabetes Dialysis patient High cholesterol Hypertension Neuropathy Pancreatitis Renal failure - Surgical History Surgical History: Surgical History (Last Reviewed 09/29/17 @ 08:48 by Lul Gillespie MD) H/O tubal ligation History of cholecystectomy Status post double vessel coronary artery bypass Medications and Allergies Active Medications: Active Medications Acetaminophen (Tylenol) 650 mg PO Q4H PRN PRN Reason: Temp > 100.4 Acetaminophen (Tylenol) 650 mg PO UNSCH PRN PRN Reason: SEE LABEL COMMENTS Amlodipine Besylate (Norvasc) 10 mg PO DAILY [facility] Last Admin: 10/01/17 09:12 Dose: 10 mg Clonidine HCl (Catapres) 0.1 mg PO UNSCH PRN PRN Reason: SEE LABEL COMMENTS Last Admin: 09/30/17 17:53 Dose: 0.1 mg Clopidogrel Bisulfate (Plavix) 75 mg PO DAILY [facility] Last Admin: 10/01/17 09:12 Dose: 75 mg Dextrose (D50w Vial) 50 ml IV.PUSH UNSCH PRN PRN Reason: PER HYPOGLYCEMIA PROTOCOL Last Admin: 09/30/17 09:48 Dose: 50 ml Diphenhydramine HCl (Benadryl) 25 mg PO UNSCH PRN PRN Reason: SEE LABEL COMMENTS Last Admin: 10/01/17 20:50 Dose: 25 mg Enalapril Maleate (Vasotec) 20 mg PO BID [facility] Last Admin: 10/01/17 20:47 Dose: 20 mg Folic Acid (Folic Acid) 1 mg PO DAILY [facility] Last Admin: 10/01/17 20:47 Dose: 1 mg Gabapentin (Neurontin) 300 mg PO DAILY [facility] Last Admin: 10/01/17 09:12 Dose: 300 mg Gelatin (Gelfoam 12 Mm/7 Mm Topical) 1 foam TOPICAL PRN PRN PRN Reason: help stop bleeding from site Gentamicin Sulfate (Gentamicin Inj) 20 mg OTHER WITH DIALYSIS PRN PRN Reason: Dwell Gentamycin Lock Glucagon (Glucagon Inj) 1 mg OTHER PRN PRN PRN Reason: for Hypoglycemia Protocol Heparin Sodium (Porcine) (Heparin Inj) 5,000 units SQ Q8H [facility] Last Admin: 10/02/17 02:00 Dose: 5,000 units Heparin Sodium (Porcine) (Heparin Inj) 8,000 units IV.FLUSH WITH DIALYSIS PRN PRN Reason: for machine prime Heparin Sodium (Porcine) (Heparin Inj) 1,000 units OTHER WITH DIALYSIS PRN PRN Reason: Dwell Heparin to Fill Catheter Hydralazine HCl (Apresoline) 50 mg PO TID [facility] Last Admin: 10/01/17 18:47 Dose: 50 mg Albumin Human (Flexbumin 25% Inj) 100 mls @ 60 mls/hr IV.SIG WITH DIALYSIS PRN PRN Reason: hypotension / volume replace Sodium Chloride (Ns Inj) 1,000 mls @ 0 mls/hr OTHER .Q0M PRN PRN Reason: for prime and rinse back Sodium Chloride (Ns Inj) 1,000 mls @ 200 mls/hr OTHER .Q5H PRN PRN Reason: for dialyzer flush PRN Sodium Chloride (Ns Inj) 1,000 mls @ 0 mls/hr IV.CONT .Q0M PRN PRN Reason: hypotension / volume replace Cefepime HCl 500 mg/ Sodium (Chloride) 100 mls @ 200 mls/hr IV.SIG DAILY [facility] Last Infusion: 10/01/17 16:53 Dose: Infused Insulin Aspart (Novolog Insulin Suppl Scale Inj) 0 unit SQ [facility]; Protocol Last Admin: 10/02/17 08:04 Dose: Not Given Insulin Detemir (Levemir Inj) 15 unit SQ [facility] Last Admin: 09/29/17 23:36 Dose: 15 unit Insulin Detemir (Levemir Inj) 8 unit SQ [facility] Last Admin: 10/01/17 20:48 Dose: 8 unit Isosorbide Mononitrate (Imdur) 120 mg PO DAILY [facility] Last Admin: 10/01/17 18:47 Dose: 120 mg Mannitol (Mannitol Inj) 12.5 gm IV.PUSH PRN PRN PRN Reason: hypotension / volume replace Metoprolol Tartrate (Lopressor) 100 mg PO BID [facility] Last Admin: 10/01/17 20:47 Dose: 100 mg Morphine Sulfate (Morphine Inj) 2 mg IV.PUSH Q3H PRN PRN Reason: PAIN 3-5; IF UABLE TO TAKE PO Morphine Sulfate (Morphine Inj) 4 mg IV.PUSH Q3H PRN PRN Reason: PAIN 6-10;IF UNABLE TO TAKE PO Last Admin: 10/02/17 05:45 Dose: 4 mg Naloxone HCl (Narcan Inj) 0.4 mg IV.PUSH UNSCH PRN PRN Reason: SEE LABEL COMMENTS Nitroglycerin (Nitrostat Sl) 0.4 mg SL Q5M PRN PRN Reason: CHEST PAIN Ondansetron HCl (Zofran Odt) 4 mg PO Q6H PRN PRN Reason: NAUSEA OR VOMITING Ondansetron HCl (Zofran Inj) 4 mg IV.PUSH UNSCH PRN PRN Reason: NAUSEA OR VOMITING Last Admin: 10/01/17 02:28 Dose: 4 mg Pravastatin Sodium (Pravachol) 40 mg PO DAILY [facility] Last Admin: 10/01/17 09:12 Dose: 40 mg Senna/Docusate Sodium (Jana-Colace) 1 tab PO BID [facility] Last Admin: 10/01/17 20:47 Dose: 1 tab Sodium Chloride (Ns Flush) 2 ml IV.FLUSH UNSCH PRN PRN Reason: FLUSH AFTER USING IV ACCESS Last Admin: 09/29/17 14:35 Dose: 2 ml Sodium Chloride (Ns Flush) 5 ml IV.FLUSH PRN PRN PRN Reason: flush each lumen during HD Exam Vital signs: Vital Signs 10/01/17 09:00 10/01/17 12:00 10/01/17 16:00 Temperature 98.2 F 98.3 F Pulse Rate 72 71 74 Respiratory Rate 18 20 Blood Pressure 152/77 H 168/79 H Pulse Oximetry 97 94 L 10/01/17 20:00 10/02/17 00:00 10/02/17 04:00 Temperature 98.5 F 98.4 F 98.9 F Pulse Rate 76 73 79 Respiratory Rate 18 17 17 Blood Pressure 162/74 H 161/74 H 152/64 H Pulse Oximetry 96 91 L 93 L Intake & Output 10/01/17 10/02/17 10/02/17 18:59 06:59 18:59 Intake Total 820 / 820 360 / 360 Output Total 665 / 665 Balance 155 / 155 360 / 360 Intake: IV 100 / 100 Maxipime Inj 500 MG In NS Inj 100 / 100 100 ML @ 200 mls/hr IV.SIG DAILY [facility] Rx#:[id number] Oral 720 / 720 360 / 360 Output: Urine Amount (Catheter) 665 / 665 Straight 665 / 665 Other: # Incontinent Voids 3 Results - Lab Results 10/01/17 08:55 10/01/17 08:55 Most recent lab results Calcium 9.0 mg/dL (8.5-10.1) D 10/01/17 08:55 Phosphorus 3.8 mg/dL (2.5-4.9) 09/30/17 00:20 Magnesium 2.7 mg/dL (1.5-2.5) H 09/29/17 09:40 Assessment and Plan - Assessment (1) ESRD (end stage renal disease) on dialysis Code(s): N18.6 - End stage renal disease; Z99.2 - Dependence on renal dialysis Status: Acute (2) Chest pain Code(s): R07.9 - Chest pain, unspecified Status: Acute (3) Fever and chills Code(s): R50.9 - Fever, unspecified Status: Acute Onset Date: ~09/29/17 (4) HTN (hypertension) Code(s): I10 - Essential (primary) hypertension Status: Acute - Attending Attestation patient was seen and examined. Agree with above assessment and plan. <Rhona Ansari - Last Filed: 09/29/17 17:02> (2) Chest pain Qualifiers: Chest pain type: unspecified <Pierce Dawn - Last Filed: 10/02/17 08:10> (2) Chest pain Qualifiers: Chest pain type: unspecified Qualified Code(s): R07.9 - Chest pain, unspecified
[2017-09-29] MEDS ORDERED: Vancomycin Inj 1,000 MG in Sodium Chlor 0.9% Inj 250 ML IV.SIG ONE (18:00)
[2017-09-29] MEDS: Morphine Inj 4 MG/ML Vial IV.PUSH PRN (23:27)
[2017-09-29] MEDS: Senna/Docusate Sodium 8.6/50 MG Tablet PO SCH (23:31)
[2017-09-29] MEDS: Metoprolol Tartrate 100 MG Tablet PO SCH (23:31)
[2017-09-29] MEDS: Insulin Detemir Inj 1,000 UNIT/10 ML Vial SQ SCH (23:36)
[2017-09-30] MEDS: Heparin - SQ 10,000 UNITS/ML Vial SQ SCH ×3 (01:04→17:26)
[2017-09-30] MEDS ORDERED: Dextrose 50% in Water 50 ML Vial IV.PUSH PRN (07:37)
[2017-09-30 08:22] LABS: Baso # (Auto) 0.1 th/mm3 (0.0-0.2); Baso % (Auto) 0.9 % (0.0-2.0); Eos # (Auto) 0.2 th/mm3 (0.0-0.4); Eos % (Auto) 2.7 % (0.0-4.0); Hematocrit 41.2 % (35.0-46.0); Hemoglobin 13.4 gm/dL (11.6-15.3); Lymph % (Auto) 14.7 % (9.0-44.0); Mean Corpuscular HGB Conc 32.5 % (32.0-36.0); Mean Corpuscular Hemoglobin 31.7 pg (27.0-34.0); Mean Corpuscular Volume 97.5 fL (80.0-100.0); Mean Platelet Volume 7.4 fL (7.0-11.0); Mono # (Auto) 0.8 th/mm3 (0.0-0.9); Mono % (Auto) 11.4 % (0.0-8.0); Neut # (Auto) 4.9 th/mm3 (1.8-7.7); Neut % (Auto) 70.3 % (16.0-70.0); Platelet Count 281 th/mm3 (150-450); Red Blood Count 4.22 mil/mm3 (4.00-5.30); Red Cell Distribution Width 16.3 % (11.6-17.2); White Blood Count 6.9 th/mm3 (4.0-11.0)
[2017-09-30 09:10] LABS: Alanine Aminotransferase 25 U/L (10-53); Albumin 3.2 g/dL (3.4-5.0); Anion Gap 12 meq/L (5-15); Aspartate Aminotransferase 15 U/L (15-37); Blood Urea Nitrogen 32 mg/dL (7-18); Calcium 8.9 mg/dL (8.5-10.1); Carbon Dioxide 24.7 meq/L (21.0-32.0); Chloride 104 meq/L (98-107); Glomerular Filtration Rate 14 mL/min (>89); Potassium 3.7 meq/L (3.5-5.1); Sodium 141 meq/L (136-145)
[2017-09-30 09:15] LABS: Alkaline Phosphatase 475 U/L (45-117); Total Protein 7.9 g/dL (6.4-8.2); Troponin I 0.03 ng/mL (0.02-0.05)
[2017-09-30] MEDS ORDERED: Dextrose 50% in Water Syringe 50 ML ONE (09:46)
--- NOTE | 2017-09-30 10:27 | ECG ---
Date Performed: 09/29/2017 Time Performed: 21:27:46 PTAGE: 52 years EKG: Sinus rhythm RIGHT ATRIAL ENLARGEMENT LEFT ATRIAL ENLARGEMENT ST/T-WAVE ABNORMALITY, CONSIDER LATERAL ISCHEMIA AB NORMAL ECG PREVIOUS TRACING : 09/29/2017 08.03 No significant change from previous tracing noted. DOCTOR: Julián Stapleton Interpretating Date/Time 09/30/2017 10:25:39
[2017-09-30] MEDS: Cefepime Inj 500 MG in Sodium Chlor 0.9% Inj 100 ML IV.SIG SCH (11:19)
[2017-09-30] MEDS: Metoprolol Tartrate 100 MG Tablet PO SCH ×2 (11:20→22:31)
[2017-09-30] MEDS: Gabapentin 300 MG Capsule PO SCH (11:20)
[2017-09-30] MEDS: Senna/Docusate Sodium 8.6/50 MG Tablet PO SCH ×2 (11:20→22:32)
[2017-09-30] MEDS: Insulin NovoLOG Aspart Correctional Sugar Inj SQ SCH ×4 (11:21→22:31)
--- NOTE | 2017-09-30 13:34 | P.PNADD ---
Addendum to Inpatient Note Reason for Addendum: Additional Documentation Additional information: Please see the resident H/P for complete documentation of the patients history. Patient with h/o ESRD, DM and CAD was sent over from dialysis as she was acutely ill. Patient was admitted for healthcare associated pneumonia and also during dialysis at the hospital was having pain in her port so possible port associated infection. Patient was seen on rounds this am and was sweating and falling to sleep. Immediate bedside fingerstick glucose was 54. Nurse reports was 43 a while ago and she was eating breakfast and given juice. Patient was given amp D50 and did improve. Patient reports still just feeling overall weak and unwell. She has cough that is productive as well. Denies SOB, CP, changes in her bowels. No neurologic complaints. Vital Signs Temp Pulse Resp BP Pulse Ox 09/30/17 12:00 97.7 F 81 20 169/73 H 97 09/30/17 08:00 98.7 F 82 20 171/81 H 98 09/30/17 05:33 98 09/30/17 04:00 98.7 F 85 20 159/72 H 99 09/30/17 00:00 100.8 F H 94 H 20 172/80 H 100 09/29/17 20:25 99.4 F 98 H 18 191/86 H 96 09/29/17 14:45 84 18 196/78 H 09/29/17 14:30 84 17 218/94 H 09/29/17 14:15 84 17 196/106 H 09/29/17 14:00 82 16 193/90 H 09/29/17 13:45 84 16 212/93 H Intake and Output 09/29/17 09/30/17 09/30/17 22:59 06:59 14:59 Intake Total 480 / 480 100 / 100 Balance 480 / 480 100 / 100 Intake: IV 100 / 100 Maxipime Inj 500 MG In NS Inj 100 / 100 100 ML @ 200 mls/hr IV.SIG DAILY [facility] Rx#:[id number] Oral 480 / 480 Other: # Voids 2 # Bowel Movements 0 Weight 62 kg 61.7 kg Weight On Admission 62 kg Impressions Ribs X-Ray 09/29/17 00:00 CONCLUSION: No definite rib fractures are demonstrated. Laboratory Results - last 12 hr 09/30/17 09/30/17 09/30/17 07:31 07:31 09:15 WBC 6.9 RBC 4.22 Hgb 13.4 Hct 41.2 MCV 97.5 MCH 31.7 MCHC 32.5 RDW 16.3 Plt Count 281 MPV 7.4 Neut % (Auto) 70.3 H Lymph % (Auto) 14.7 [place] % (Auto) 11.4 H Eos % (Auto) 2.7 Baso % (Auto) 0.9 Neut # (Auto) 4.9 Lymph # (Auto) 1.0 [place] # (Auto) 0.8 Eos # (Auto) 0.2 Baso # (Auto) 0.1 WBC Differential . Differential Comment Auto diff final Sodium 141 Potassium 3.7 D Chloride 104 Carbon Dioxide 24.7 Anion Gap 12 BUN 32 H Creatinine 4.00 H Estimated GFR 14 L POC Glucose 44 L* Fasting Glucose 69 L Calcium 8.9 Total Bilirubin 0.6 AST 15 ALT 25 Alkaline Phosphatase 475 H Troponin I 0.03 Total Protein 7.9 Albumin 3.2 L 09/30/17 09/30/17 09:42 11:51 WBC RBC Hgb Hct MCV MCH MCHC RDW Plt Count MPV Neut % (Auto) Lymph % (Auto) [place] % (Auto) Eos % (Auto) Baso % (Auto) Neut # (Auto) Lymph # (Auto) [place] # (Auto) Eos # (Auto) Baso # (Auto) WBC Differential Differential Comment Sodium Potassium Chloride Carbon Dioxide Anion Gap BUN Creatinine Estimated GFR POC Glucose 53 L 347 H Fasting Glucose Calcium Total Bilirubin AST ALT Alkaline Phosphatase Troponin I Total Protein Albumin * GENERAL: generally ill appearing, lethargic, lying in bed SKIN: sweating and clammy HEAD: Atraumatic. Normocephalic. EYES: Pupils equal and round. No scleral icterus. No injection or drainage. ENT: No nasal bleeding or discharge. Mucous membranes pink and moist. NECK: Trachea midline. No JVD. CARDIOVASCULAR: Regular rate and rhythm. RESPIRATORY: No accessory muscle use. Clear to auscultation. Breath sounds equal bilaterally. GASTROINTESTINAL: Abdomen soft, non-tender, nondistended. Hepatic and splenic margins not palpable. MUSCULOSKELETAL: Extremities without clubbing, cyanosis, or edema. No obvious deformities. NEUROLOGICAL: Awake and alert. No obvious cranial nerve deficits. Motor grossly within normal limits. Normal speech. PSYCHIATRIC: Appropriate mood and affect; insight and judgment normal. AP 1. Pneumonia -- continue the IV abx - cefepime and Zithromax. Supportive care. She has had some very severe pain in the left upper abd quadrant or left lower chest with inspiration --- likely due to the pneumonia but with her overall states and this pain is out of proportion to what is seen on the CXR. Will get CT of the chest to see if we can get a better idea to make sure no sign of empyema/abscess. If continues to spike fevers or WBC continues to trend up will consider ID consult. 2. Possible port-infection -- blood cultures pending. Vancomycin added for coverage 3. DM -- severe hypoglycemia today -- since she is so ill and likely not taking in as much orally will hold her home levemir and cover her with SS. Patient seen and dw the resident team - Dr. Jimenes, Dr. Lara, Dr. Hager
[2017-09-30] MEDS: Morphine Inj 4 MG/ML Vial IV.PUSH PRN ×2 (17:27→22:35)
--- NOTE | 2017-09-30 20:58 | CT ---
EXAM DATE: 09/30/2017 8:49 PM EDT AGE/SEX: 52 years / Female INDICATIONS: Pneumonia. CLINICAL DATA: This is the patient's initial encounter. Patient reports that signs and symptoms have been present for 1 day and indicates a pain score of 0/10. MEDICAL/SURGICAL HISTORY: Cardiovascular disease. Hypertension. Chronic renal failure. Dialysis Diabetes Pancreatitis CABG. Cholecystectomy. Tubal ligation. RADIATION DOSE: 6.98 CTDI (mGy) COMPARISON: No prior exams available for comparison. TECHNIQUE: Multiple contiguous axial images were obtained through the chest without contrast. Image s were obtained in suspended respiration using multiple row detector helical technique. Using automa luisana exposure control and adjustment of the mA and/or kV according to patient size, radiation dose was kept as low as reasonably achievable to obtain optimal diagnostic quality images. DICOM format imag e data is available electronically for review and comparison. FINDINGS: There are small bilateral pleural effusions with basilar atelectasis in the lungs. Dual-lumen catheter tip in right ventricle. Previous sternotomy and CABG. Severe coronary artery calc ifications. Small pericardial effusion. No adenopathy. Mild anasarca. Upper abdomen reveals previous cholecystectomy. Gastric distention. CONCLUSION: 1. Small bilateral pleural effusions with basilar atelectasis. Trace pericardial fluid. 2. Severe coronary artery calcifications status post CABG. 3. Mild anasarca. Catheter tip in right atrium. Electronically signed by: David Quintanilla MD 09/30/2017 8:57 PM EDT
--- NOTE | 2017-09-30 22:10 | P.PNNP ---
Subjective Interval history: some ongoing fatigue, no acute complaints Physical Exam Vital signs: Vital Signs 09/30/17 00:00 09/30/17 04:00 09/30/17 05:33 Temperature 100.8 F H 98.7 F Pulse Rate 94 H 85 Respiratory Rate 20 20 Blood Pressure 172/80 H 159/72 H Pulse Oximetry 100 99 98 09/30/17 08:00 09/30/17 09:00 09/30/17 12:00 Temperature 98.7 F 97.7 F Pulse Rate 82 83 81 Respiratory Rate 20 20 Blood Pressure 171/81 H 169/73 H Pulse Oximetry 98 97 09/30/17 16:00 Temperature 98.4 F Pulse Rate 76 Respiratory Rate 20 Blood Pressure 189/86 H Pulse Oximetry 100 Intake & Output 09/30/17 09/30/17 10/01/17 06:59 18:59 06:59 Intake Total 480 / 480 580 / 580 Balance 480 / 480 580 / 580 Weight 61.7 kg Intake: IV 100 / 100 Maxipime Inj 500 MG In NS Inj 100 / 100 100 ML @ 200 mls/hr IV.SIG DAILY [facility] Rx#:[id number] Oral 480 / 480 480 / 480 Other: # Voids 2 2 # Bowel Movements 0 Weight On Admission 62 kg - Constitutional no acute distress - Routine HEENT Exam Head: Present: normocephalic - Routine Neck Exam Present: supple - Routine Respiratory Exam Present: CTA bilaterally - Routine Cardiovascular Exam Present: RRR - Routine Abdominal Exam Present: soft - Routine Extremities Exam Present: full ROM - Routine Skin Exam Present: intact - Routine Neurological Exam Present: alert - Detailed Neurological Exam: Coma Scale Eye Opening: Spontaneous - Routine Psychiatric Exam Present: normal affect Assessment and Plan - Assessment (1) ESRD (end stage renal disease) on dialysis Code(s): N18.6 - End stage renal disease; Z99.2 - Dependence on renal dialysis Status: Acute Plan: ESRD MWF Volume status, electrolytes stable. HD done Monday via RIJ tunneled catheter Apparent fevers during treatment, suspicious for possible catheter infection. Cultures negative to date, however some tenderness near catheter area. Continue empiric vancomycin with dialysis. If fevers or symptoms again on Monday dialysis, will need catheter removal and vascath. If asymptomatic on Monday dialysis, recommend to continue to treat with Vancomycin and plan for empiric guidewire catheter exchange at same site ( to preserve vein site and avoid left-sided catheter with maturing left arm AVF) Avoid gadolinium and IVF. Monitor electrolytes and fluid status Protect left arm from procedures. Her AVF is not ready yet, had appointment with Dr. Cobos but missed due to hospitalization. Good thrill at 1st stage basilic vein fistula, which may be ready for 2nd stage superficialization. (2) Chest pain Code(s): R07.9 - Chest pain, unspecified Status: Acute Qualifiers: Chest pain type: unspecified Qualified Code(s): R07.9 - Chest pain, unspecified Plan: Etiology unclear. Has not seen Dr. Lee since CABG. VQ negative for PE. EKG unremarkable. May need cardiology evaluation. Possible symptoms due to pneumonia/ catheter infection? (3) Fever and chills Code(s): R50.9 - Fever, unspecified Status: Acute Onset Date: ~09/29/17 Plan: Blood culture drawn from [facility]. negative cultures to date - continue to monitor for evaluation for possible catheter removal. (4) HTN (hypertension) Code(s): I10 - Essential (primary) hypertension Status: Acute Plan: ongoing HTN - will add norvasc
[2017-10-01] MEDS: Heparin - SQ 10,000 UNITS/ML Vial SQ SCH ×4 (01:55→18:02)
[2017-10-01 02:41] LABS: Hematocrit 38.4 % (35.0-46.0); Hemoglobin 12.4 gm/dL (11.6-15.3); Mean Corpuscular HGB Conc 32.3 % (32.0-36.0); Mean Corpuscular Hemoglobin 31.9 pg (27.0-34.0); Mean Corpuscular Volume 98.7 fL (80.0-100.0); Mean Platelet Volume 7.6 fL (7.0-11.0); Platelet Count 278 th/mm3 (150-450); Red Blood Count 3.89 mil/mm3 (4.00-5.30); Red Cell Distribution Width 16.6 % (11.6-17.2)
[2017-10-01 03:01] LABS: Alanine Aminotransferase 20 U/L (10-53); Albumin 2.9 g/dL (3.4-5.0); Alkaline Phosphatase 361 U/L (45-117); Anion Gap 11 meq/L (5-15); Aspartate Aminotransferase 11 U/L (15-37); Blood Urea Nitrogen 48 mg/dL (7-18); Calcium 8.1 mg/dL (8.5-10.1); Carbon Dioxide 25.1 meq/L (21.0-32.0); Chloride 102 meq/L (98-107); Glomerular Filtration Rate 11 mL/min (>89); Glucose,Random 192 mg/dL (74-106); Potassium 4.3 meq/L (3.5-5.1); Sodium 138 meq/L (136-145); Total Protein 6.7 g/dL (6.4-8.2)
[2017-10-01] MEDS: Morphine Inj 4 MG/ML Vial IV.PUSH PRN ×3 (03:58→20:50)
[2017-10-01] MEDS: Insulin NovoLOG Aspart Correctional Sugar Inj SQ SCH ×4 (08:59→20:47)
[2017-10-01] MEDS: Gabapentin 300 MG Capsule PO SCH (09:12)
[2017-10-01] MEDS: Metoprolol Tartrate 100 MG Tablet PO SCH ×2 (09:12→20:47)
[2017-10-01] MEDS: amLODIPine 10 MG Tablet PO SCH (09:12)
[2017-10-01] MEDS: Cefepime Inj 500 MG in Sodium Chlor 0.9% Inj 100 ML IV.SIG SCH (09:12)
[2017-10-01] MEDS: Senna/Docusate Sodium 8.6/50 MG Tablet PO SCH ×2 (09:17→20:47)
[2017-10-01 09:37] LABS: Baso # (Auto) 0.1 th/mm3 (0.0-0.2); Baso % (Auto) 0.9 % (0.0-2.0); Eos # (Auto) 0.4 th/mm3 (0.0-0.4); Eos % (Auto) 6.8 % (0.0-4.0); Hematocrit 43.9 % (35.0-46.0); Hemoglobin 14.2 gm/dL (11.6-15.3); Lymph # (Auto) 1.1 th/mm3 (1.0-4.8); Lymph % (Auto) 19.4 % (9.0-44.0); Mean Corpuscular HGB Conc 32.4 % (32.0-36.0); Mean Corpuscular Hemoglobin 32.1 pg (27.0-34.0); Mean Corpuscular Volume 99.2 fL (80.0-100.0); Mono # (Auto) 0.6 th/mm3 (0.0-0.9); Mono % (Auto) 11.2 % (0.0-8.0); Neut # (Auto) 3.4 th/mm3 (1.8-7.7); Neut % (Auto) 61.7 % (16.0-70.0); Platelet Count 304 th/mm3 (150-450); Red Blood Count 4.42 mil/mm3 (4.00-5.30); Red Cell Distribution Width 16.3 % (11.6-17.2); White Blood Count 5.5 th/mm3 (4.0-11.0)
[2017-10-01 10:00] LABS: Alanine Aminotransferase 22 U/L (10-53); Albumin 3.3 g/dL (3.4-5.0); Alkaline Phosphatase 437 U/L (45-117); Anion Gap 12 meq/L (5-15); Aspartate Aminotransferase 14 U/L (15-37); Blood Urea Nitrogen 50 mg/dL (7-18); Chloride 100 meq/L (98-107); Glomerular Filtration Rate 10 mL/min (>89); Glucose,Random 207 mg/dL (74-106); Potassium 4.7 meq/L (3.5-5.1); Sodium 136 meq/L (136-145); Total Protein 8.2 g/dL (6.4-8.2)
--- NOTE | 2017-10-01 12:54 | P.PNFP ---
Subjective Interval history: Patient seen and examined this morning. Patient complaining of continued sharp left sided chest pain, about the same as on admission and associated with deep breathing, and pain at the dialysis catheter site. Patient also complaining of abdominal pressure associated with the inability to urinate. Last time she urinated was last night at 5pm. Admits to mild pain on urination, but no blood in her urine. Denies fever, chills or sweats. She notes that she is currently fatigued, but she has not had another other episodes of hypoglycemia over night. Denies nausea, vomiting, headache, leg pain or leg swelling. <Lucrecia Lara B - 10/01/17 15:01> Results - Labs Result diagrams: 10/01/17 08:55 10/01/17 08:55 <Zenaida Sheriff - 10/02/17 15:54> Abnormal lab results 10/01/17 10/01/17 10/02/17 Range/Units 18:03 20:14 07:55 POC Glucose 277 H 263 H 141 H (68-110) mg/dl 10/02/17 Range/Units 11:39 POC Glucose 115 H (68-110) mg/dl <Zenaida Sheriff - 10/02/17 15:54> Abnormal lab results 09/30/17 09/30/17 10/01/17 Range/Units 16:57 19:59 02:07 RBC 3.89 L (4.00-5.30) mil/mm3 [place] % (Auto) (0.0-8.0) % Eos % (Auto) (0.0-4.0) % BUN (7-18) mg/dL Creatinine (0.50-1.00) mg/dL Estimated GFR (>89) mL/min POC Glucose 403 H 152 H (68-110) mg/dl Random Glucose (74-106) mg/dL Calcium (8.5-10.1) mg/dL AST (15-37) U/L Alkaline Phosphatase (45-117) U/L Albumin (3.4-5.0) g/dL 10/01/17 10/01/17 10/01/17 Range/Units 02:07 08:43 08:55 RBC (4.00-5.30) mil/mm3 [place] % (Auto) 11.2 H (0.0-8.0) % Eos % (Auto) 6.8 H (0.0-4.0) % BUN 48 H (7-18) mg/dL Creatinine 4.91 H (0.50-1.00) mg/dL Estimated GFR 11 L (>89) mL/min POC Glucose 193 H (68-110) mg/dl Random Glucose 192 H D (74-106) mg/dL Calcium 8.1 L D (8.5-10.1) mg/dL AST 11 L (15-37) U/L Alkaline Phosphatase 361 H (45-117) U/L Albumin 2.9 L (3.4-5.0) g/dL 10/01/17 10/01/17 Range/Units 08:55 12:03 RBC (4.00-5.30) mil/mm3 [place] % (Auto) (0.0-8.0) % Eos % (Auto) (0.0-4.0) % BUN 50 H (7-18) mg/dL Creatinine 5.29 H (0.50-1.00) mg/dL Estimated GFR 10 L (>89) mL/min POC Glucose 266 H (68-110) mg/dl Random Glucose 207 H (74-106) mg/dL Calcium (8.5-10.1) mg/dL AST 14 L (15-37) U/L Alkaline Phosphatase 437 H (45-117) U/L Albumin 3.3 L (3.4-5.0) g/dL Short CBC 10/01/17 10/01/17 Range/Units 02:07 08:55 WBC 6.0 5.5 (4.0-11.0) th/mm3 Hgb 12.4 14.2 (11.6-15.3) gm/dL Hct 38.4 43.9 (35.0-46.0) % Plt Count 278 304 (150-450) th/mm3 BMP 10/01/17 10/01/17 02:07 08:55 Sodium 138 136 Potassium 4.3 4.7 Chloride 102 100 Carbon Dioxide 25.1 24.0 BUN 48 H 50 H Creatinine 4.91 H 5.29 H Calcium 8.1 L D 9.0 D Liver Function 10/01/17 10/01/17 Range/Units 02:07 08:55 Total Bilirubin 0.5 0.6 (0.2-1.0) mg/dL AST 11 L 14 L (15-37) U/L ALT 20 22 (10-53) U/L Alkaline Phosphatase 361 H 437 H (45-117) U/L Albumin 2.9 L 3.3 L (3.4-5.0) g/dL <Lucrecia Lara - 10/01/17 12:54> - Imaging Impressions Chest CT 09/30/17 00:00 CONCLUSION: 1. Small bilateral pleural effusions with basilar atelectasis. Trace pericardial fluid. 2. Severe coronary artery calcifications status post CABG. 3. Mild anasarca. Catheter tip in right atrium. <Lucrecia Lara - 10/01/17 12:54> Physical Exam Vital signs: Vital Signs 10/01/17 16:00 10/01/17 20:00 10/02/17 00:00 Temperature 98.3 F 98.5 F 98.4 F Pulse Rate 74 76 73 Respiratory Rate 20 18 17 Blood Pressure 168/79 H 162/74 H 161/74 H Pulse Oximetry 94 L 96 91 L 10/02/17 04:00 10/02/17 08:00 10/02/17 09:06 Temperature 98.9 F 98.4 F Pulse Rate 79 75 Respiratory Rate 17 20 Blood Pressure 152/64 H 166/75 H Pulse Oximetry 93 L 94 L 94 L Intake & Output 10/01/17 10/02/17 10/02/17 18:59 06:59 18:59 Intake Total 820 / 820 360 / 360 Output Total 665 / 665 4000 / 4000 Balance 155 / 155 360 / 360 -4000 / -4000 Intake: IV 100 / 100 Maxipime Inj 500 MG In NS Inj 100 / 100 100 ML @ 200 mls/hr IV.SIG DAILY [facility] Rx#:[id number] Oral 720 / 720 360 / 360 Output: Hemodialysis Amount 4000 / 4000 Urine Amount (Catheter) 665 / 665 Straight 665 / 665 Other: # Incontinent Voids 3 <Zenaida Sheriff - 10/02/17 15:54> Vital Signs 09/30/17 16:00 09/30/17 20:00 10/01/17 00:00 Temperature 98.4 F 97.9 F 98.7 F Pulse Rate 76 81 79 Respiratory Rate 20 18 20 Blood Pressure 189/86 H 146/68 H Pulse Oximetry 100 97 87 L 10/01/17 04:00 10/01/17 08:00 10/01/17 09:00 Temperature 99.5 F 98.4 F Pulse Rate 81 76 72 Respiratory Rate 20 18 Blood Pressure 160/58 H 158/73 H Pulse Oximetry 94 L 95 Intake & Output 09/30/17 10/01/17 10/01/17 18:59 06:59 18:59 Intake Total 580 / 580 240 / 240 Balance 580 / 580 240 / 240 Weight 63.9 kg Intake: IV 100 / 100 Maxipime Inj 500 MG In NS Inj 100 / 100 100 ML @ 200 mls/hr IV.SIG DAILY [facility] Rx#:[id number] Oral 480 / 480 240 / 240 Other: # Voids 2 2 <[facility] 10/01/17 12:54> Narrative: Patient sitting up in bed <[facility] 10/01/17 12:54> - Constitutional no acute distress <[facility] 10/01/17 12:54> - Routine HEENT Exam Head: Present: normocephalic, atraumatic <[facility] 10/01/17 12:54> Eye: Present: EOMI. Absent: scleral injection <[facility] 10/01/17 12: 54> - Routine Respiratory Exam Present: crackles (in left lower lung field ), diminished air movement (due to pain upon breathing). Absent: rhonchi, stridor, wheezes <[facility] 12:54> - Routine Cardiovascular Exam Present: RRR. Absent: murmur <[facility] 10/01/17 12:54> - Routine Abdominal Exam Present: soft, normoactive bowel sounds, tenderness (generalized, associated with need to urinate per patient ). Absent: rebound, guarding <[facility] 10/01/17 12:54> - Routine Extremities Exam Present: pulses intact, normal capillary refill. Absent: edema, calf tenderness <[facility] 10/01/17 12:54> - Routine Skin Exam Present: dry, warm <[facility] 10/01/17 12:54> - Routine Neurological Exam Present: alert, oriented X3 <Lucrecia Lara 10/01/17 12:54> - Routine Psychiatric Exam Present: normal affect <Lucrecia Lara 10/01/17 12:54> Assessment and Plan - Assessment (1) Pneumonia Code(s): J18.9 - Pneumonia, unspecified organism Status: Acute (2) ESRD (end stage renal disease) on dialysis Code(s): N18.6 - End stage renal disease; Z99.2 - Dependence on renal dialysis Status: Acute (3) Chest pain Code(s): R07.9 - Chest pain, unspecified Status: Acute (4) Urinary hesitancy Code(s): R39.11 - Hesitancy of micturition Status: Acute (5) HTN (hypertension) Code(s): I10 - Essential (primary) hypertension Status: Acute (6) Diabetes mellitus Code(s): E11.9 - Type 2 diabetes mellitus without complications Status: Acute (7) Nutrition, metabolism, and development symptoms Code(s): R63.8 - Other symptoms and signs concerning food and fluid intake Status: Acute (8) DVT prophylaxis Status: Acute <Zenaida Sheriff - 10/02/17 15:54> (1) Pneumonia Code(s): J18.9 - Pneumonia, unspecified organism Status: Acute Plan: Patient complaining of mild intermittent cough and difficulty breathing due to pain in left chest. Imaging ordered in emergency department showed ventilation defect on V/Q scan and left basilar infiltrate on CXR, suspicious for pneumonia. imaging: -CXR done in ED showed left basilar infiltrate, possible pneumonia -Chest CT: showed small bilateral pleural effusions with basilar atelectasis. Trace pericardial fluid. -Incentive spirometer ordered labs: -CBC ordered in ED was 8.0, within normal limits meds: -Patient given Azithromycin 500mg IV and Cefepime 1g IV in the ED -Discussed renal adjustment of antibiotics for patient on dialysis with pharmacy over the phone who recommend Cefepime 500 mg IV daily. (2) ESRD (end stage renal disease) on dialysis Code(s): N18.6 - End stage renal disease; Z99.2 - Dependence on renal dialysis Status: Acute Plan: Patient received dialysis on MWF schedule. Patient was transferred from dialysis clinic today prior to receiving scheduled dialysis due to chest pain. -Nephrology consulted. Dialysis performed on 09/29. Upon start of dialysis patient complained of shaking chills, severe pain at dialysis catheter site and in her groin in the location of a past cardiac catheterization, suspicious for catheter infection. BCx2 ordered and patient given Vancomycin 1gm. -BCx2: NGTD 10/01 -Second set of blood cultures, 72 hrs after start of Vancomycin ordered for 10/02. -CT chest discordantly mentioned catheter tip to both be in right atrium and right ventricle in report. Called radiology to confirm actual catheter tip location. If advanced into ventricle, due to catheter infection and lack of other dialysis access will contact patient's refrigerator mover. Per patient, she has undergone the first step of AV fistula procedure in Apr 2015, but has missed multiple appointment to establish further vascular access due to hospitalization. Will see if patient's refrigerator mover will be able to perform the last part of the procedure if necessary, if catheter tip is misplaced. (3) Chest pain Code(s): R07.9 - Chest pain, unspecified Status: Acute Plan: Patient complaining of sharp left sided chest pain, just below the left breast, tender to palpation. Patient also notes difficultly taking deep breaths due to pain. 10/01 Pain similar to admission labs: -Troponin I negative 3x -Serial EKGs: normal sinus rhythm, no ST elevations -D-dimer high at 1.16. V/Q hernandez ordered due to patients inability to receive contrast for CT due to her ESRD for rule out of pulmonary embolism. Imaging: -CXR showed left basilar infiltrates -V/Q scan ordered in ED showed low perfusion in left lung base -Bilateral rib XR showed no fractures -CT chest showed medications: -NTG given en route to hospital, without resolution of pain -Will give Morphine 2mg IV PRN pain 3-5, or Morphine 4mg IV PRN pain 6-10 (4) Urinary hesitancy Code(s): R39.11 - Hesitancy of micturition Status: Acute Plan: Patient complaining of urinary hesitancy and pain upon urination. -UA ordered (5) HTN (hypertension) Code(s): I10 - Essential (primary) hypertension Status: Acute Plan: Patient has a history of HTN -will continue home medications, including metoprolol 100 mg PO BID -patient given enalapril 10 mg PO, hydralazine 50 mg PO and amlodipine 10 PO in ED (6) Diabetes mellitus Code(s): E11.9 - Type 2 diabetes mellitus without complications Status: Acute Plan: Patient has a history of DM. BGL 88 on admission. 09/30 Patient BGL in the morning was 54 on examination. Resolved after giving D50 and apple juice. 10/01 Patient states no hypoglycemic events overnight. -Will continue on half patient's home dose of Levemir 8u HS, to avoid hypoglycemic events. -Hypoglycemic protocol order on admission. (7) Nutrition, metabolism, and development symptoms Code(s): R63.8 - Other symptoms and signs concerning food and fluid intake Status: Acute Plan: Fluids: None Nutrition: Will place patient on renal, heart health and diabetic diet Electrolytes: Will monitor and replete as needed (8) DVT prophylaxis Status: Acute Plan: DVT Prophylaxis: Heparin IV q8hr <Lucrecia Lara - 10/01/17 15:00> - Attending Attestation The exam, history, and the medical decision-making described in the above note were completed with the assistance of the resident physician. I reviewed and agree with the findings presented. I attest that I had a [id number] encounter with the patient on the same day, and personally performed and documented my assessment and findings in the medical record. <Zenaida Sheriff - 10/02/17 15:54> <Lucrecia Lara - Last Filed: 10/01/17 15:00> (1) Pneumonia Qualifiers: Pneumonia type: due to unspecified organism Laterality: left Lung location: lower lobe of lung Qualified Code(s): J18.1 - Lobar pneumonia, unspecified organism (3) Chest pain Qualifiers: Chest pain type: unspecified Qualified Code(s): R07.9 - Chest pain, unspecified <Zenaida Sheriff R - Last Filed: 10/02/17 15:54> (1) Pneumonia Qualifiers: Pneumonia type: due to unspecified organism Laterality: left Lung location: lower lobe of lung Qualified Code(s): J18.1 - Lobar pneumonia, unspecified organism (3) Chest pain Qualifiers: Chest pain type: unspecified Qualified Code(s): R07.9 - Chest pain, unspecified <Lucrecia Lara B - Last Filed: 10/01/17 15:00> (1) Pneumonia Qualifiers: Pneumonia type: due to unspecified organism Laterality: left Lung location: lower lobe of lung Qualified Code(s): J18.1 - Lobar pneumonia, unspecified organism (3) Chest pain Qualifiers: Chest pain type: unspecified Qualified Code(s): R07.9 - Chest pain, unspecified <Zenaida Sheriff R - Last Filed: 10/02/17 15:54> (1) Pneumonia Qualifiers: Pneumonia type: due to unspecified organism Laterality: left Lung location: lower lobe of lung Qualified Code(s): J18.1 - Lobar pneumonia, unspecified organism (3) Chest pain Qualifiers: Chest pain type: unspecified Qualified Code(s): R07.9 - Chest pain, unspecified
[2017-10-01 15:45] LABS: Amorphous Sediment,Urine Moderate /hpf; Bilirubin,Urine Negative (Negative); Clarity,Urine Hazy (Clear); Color,Urine Yellow (Yellw/Straw); Glucose,Urine (UA) 500 or Greater mg/dL (Negative); Leukocyte Esterase,Urine Negative (Negative); Nitrite,Urine Negative (Negative); Specific Gravity,Urine 1.011 (1.002-1.035); Squamous Epithelial Cell,Urine <1 /hpf (0-5)
--- NOTE | 2017-10-01 18:26 | P.PNNP ---
Subjective Interval history: ongoing chest discomfort Physical Exam Vital signs: Vital Signs 09/30/17 20:00 10/01/17 00:00 10/01/17 04:00 Temperature 97.9 F 98.7 F 99.5 F Pulse Rate 81 79 81 Respiratory Rate 18 20 20 Blood Pressure 146/68 H 160/58 H Pulse Oximetry 97 87 L 94 L 10/01/17 08:00 10/01/17 09:00 10/01/17 12:00 Temperature 98.4 F 98.2 F Pulse Rate 76 72 71 Respiratory Rate 18 18 Blood Pressure 158/73 H 152/77 H Pulse Oximetry 95 97 Intake & Output 09/30/17 10/01/17 10/01/17 18:59 06:59 18:59 Intake Total 580 / 580 240 / 240 100 / 100 Output Total 665 / 665 Balance 580 / 580 240 / 240 -565 / -565 Weight 63.9 kg Intake: IV 100 / 100 100 / 100 Maxipime Inj 500 MG In NS Inj 100 / 100 100 / 100 100 ML @ 200 mls/hr IV.SIG DAILY CULLEN Rx#:[id number] Oral 480 / 480 240 / 240 Output: Urine Amount (Catheter) 665 / 665 Straight 665 / 665 Other: # Voids 2 2 - Constitutional no acute distress - Routine HEENT Exam Head: Present: normocephalic Eye: Present: EOMI ENT: Present: mucous membranes moist - Routine Neck Exam Present: supple - Routine Respiratory Exam Present: CTA bilaterally - Routine Cardiovascular Exam Present: RRR - Routine Abdominal Exam Present: soft - Routine Skin Exam Present: intact - Routine Neurological Exam Present: alert, oriented X3 - Detailed Neurological Exam: Coma Scale Eye Opening: Spontaneous - Routine Psychiatric Exam Present: normal affect - Urinary Catheter Management Straight Cath placed during this visit: no Assessment and Plan - Assessment (1) ESRD (end stage renal disease) on dialysis Code(s): N18.6 - End stage renal disease; Z99.2 - Dependence on renal dialysis Status: Acute Plan: ESRD MWF Volume status, electrolytes stable. HD done Monday via RIJ tunneled catheter Apparent fevers during treatment, suspicious for possible catheter infection. Cultures negative to date, however some tenderness near catheter area. Afebrile otherwise. Plan for next HD Monday If fevers or symptoms again on Monday dialysis, will need catheter removal and vascath. If postive cultures but asymptomatic on Monday dialysis, recommend to continue to treat with Vancomycin and plan for empiric guidewire catheter exchange at same site ( to preserve vein site and avoid left-sided catheter with maturing left arm AVF) If negative cultures and asymptomatic, may consider to leave catheter in place. CT and CXR reports reviewed regarding catheter tip position - appears to be in good location. No need to change unless there is catheter dysfunction. Avoid gadolinium and IVF. Monitor electrolytes and fluid status Protect left arm from procedures. Her AVF is not ready yet, had appointment with Dr. Cobos but missed due to hospitalization. Good thrill at 1st stage basilic vein fistula, which may be ready for 2nd stage superficialization. (2) Chest pain Code(s): R07.9 - Chest pain, unspecified Status: Acute Qualifiers: Chest pain type: unspecified Qualified Code(s): R07.9 - Chest pain, unspecified Plan: Etiology unclear. Has not seen Dr. Lee since CABG. VQ negative for PE. EKG unremarkable. May need cardiology evaluation. Possible symptoms due to pneumonia or costochondritis? (3) Fever and chills Code(s): R50.9 - Fever, unspecified Status: Acute Onset Date: ~09/29/17 Plan: Blood cultures drawn from CVC. negative cultures to date - continue to monitor (4) HTN (hypertension) Code(s): I10 - Essential (primary) hypertension Status: Acute Plan: Home meds and norvasc added, continue to monitor.
[2017-10-01] MEDS: Isosorbide Mononitrate 60 MG ER 24HR Tablet (Imdur) PO SCH (18:47)
[2017-10-01] MEDS: hydrALAZINE 50 MG Tablet PO SCH (18:47)
[2017-10-01] MEDS: Folic Acid 1 MG Tablet PO SCH (20:47)
[2017-10-01] MEDS: Insulin Detemir Inj 1,000 UNIT/10 ML Vial SQ SCH (20:48)
[2017-10-02] MEDS: Heparin - SQ 10,000 UNITS/ML Vial SQ SCH ×3 (02:00→18:03)
[2017-10-02] MEDS: Morphine Inj 4 MG/ML Vial IV.PUSH PRN ×3 (05:45→23:21)
[2017-10-02] MEDS: Insulin NovoLOG Aspart Correctional Sugar Inj SQ SCH ×4 (08:04→20:46)
--- NOTE | 2017-10-02 08:52 | P.PNNP ---
Subjective Interval history: She has been afebrile. To have dialysis today. Blood cultures are either pending or negative so far. Seen during dialysis. Complains of difficulty in urination. Physical Exam Vital signs: Vital Signs 10/01/17 09:00 10/01/17 12:00 10/01/17 16:00 Temperature 98.2 F 98.3 F Pulse Rate 72 71 74 Respiratory Rate 18 20 Blood Pressure 152/77 H 168/79 H Pulse Oximetry 97 94 L 10/01/17 20:00 10/02/17 00:00 10/02/17 04:00 Temperature 98.5 F 98.4 F 98.9 F Pulse Rate 76 73 79 Respiratory Rate 18 17 17 Blood Pressure 162/74 H 161/74 H 152/64 H Pulse Oximetry 96 91 L 93 L Intake & Output 10/01/17 10/02/17 10/02/17 18:59 06:59 18:59 Intake Total 820 / 820 360 / 360 Output Total 665 / 665 Balance 155 / 155 360 / 360 Intake: IV 100 / 100 Maxipime Inj 500 MG In NS Inj 100 / 100 100 ML @ 200 mls/hr IV.SIG DAILY CULLEN Rx#:[id number] Oral 720 / 720 360 / 360 Output: Urine Amount (Catheter) 665 / 665 Straight 665 / 665 Other: # Incontinent Voids 3 - Constitutional no acute distress - Routine HEENT Exam Head: Present: normocephalic, atraumatic Eye: Present: EOMI, PERRL ENT: Present: mucous membranes moist - Routine Neck Exam Present: supple, full ROM. Absent: JVD, lymphadenopathy - Routine Respiratory Exam Present: accessory muscle use. Absent: CTA bilaterally - Routine Cardiovascular Exam Present: RRR, S1, S2 - Routine Abdominal Exam Present: soft, normoactive bowel sounds - Routine Extremities Exam Absent: edema, full ROM - Routine Skin Exam Present: intact - Routine Neurological Exam Present: alert, oriented X3 - Urinary Catheter Management Straight Cath placed during this visit: no Assessment and Plan - Assessment (1) ESRD (end stage renal disease) on dialysis Code(s): N18.6 - End stage renal disease; Z99.2 - Dependence on renal dialysis Status: Acute Plan: ESRD MWF Volume status, electrolytes stable. HD done Monday via RIJ tunneled catheter Apparent fevers during treatment, suspicious for possible catheter infection. Cultures negative to date, however some tenderness near catheter area. Afebrile otherwise. Plan for next HD Monday If fevers or symptoms again on Monday dialysis, will need catheter removal and vascath. If postive cultures but asymptomatic on Monday dialysis, recommend to continue to treat with Vancomycin and plan for empiric guidewire catheter exchange at same site ( to preserve vein site and avoid left-sided catheter with maturing left arm AVF) If negative cultures and asymptomatic, may consider to leave catheter in place. CT and CXR reports reviewed regarding catheter tip position - appears to be in good location. No need to change unless there is catheter dysfunction. Avoid gadolinium and IVF. Monitor electrolytes and fluid status Protect left arm from procedures. Her AVF is not ready yet, had appointment with Dr. Cobos but missed due to hospitalization. Good thrill at 1st stage basilic vein fistula, which may be ready for 2nd stage superficialization. (2) Chest pain Code(s): R07.9 - Chest pain, unspecified Status: Acute Qualifiers: Chest pain type: unspecified Qualified Code(s): R07.9 - Chest pain, unspecified Plan: Etiology unclear. Has not seen Dr. Lee since CABG. VQ negative for PE. EKG unremarkable. May need cardiology evaluation. Possible symptoms due to pneumonia or costochondritis? (3) Fever and chills Code(s): R50.9 - Fever, unspecified Status: Acute Onset Date: ~09/29/17 Plan: Blood cultures drawn from CVC. negative cultures to date - continue to monitor (4) HTN (hypertension) Code(s): I10 - Essential (primary) hypertension Status: Acute Plan: Home meds and norvasc added, continue to monitor. - Attending Attestation Patient can be discharged from renal standpoint if urinary symptoms resolve.
[2017-10-02] MEDS ORDERED: Vancomycin Inj 1,000 MG in Sodium Chlor 0.9% Inj 250 ML IV.SIG SCH (09:00)
--- NOTE | 2017-10-02 12:08 | P.PNFP ---
Subjective Interval history: Patient seen and examined while in dialysis suite. Per nursing staff and patient , no complaints of increased pain at the dialysis catheter site or shaking chills at the start of the treatment. Patient notes mild chest pain in the left- sided of chest, similar to pain on admission, and diffuse abdominal pain associated with urinary retention. She states that she has not voided today, but would like to continue to try to urinate on her own. We discussed the risk of retaining urine, such as possible development of an infection due to urinary stasis, and explained that if she hadn't voided by this afternoon, or was experiencing significant pain due to lack of voiding, that she should inform her nurse who could scan her bladder and help her void via straight catheterization if needed. She understands and is agreeable with this plan. Denies fever, shaking chills, sweats, nausea, vomiting, or calf pain. No hypoglycemic events overnight. Results - Labs Result diagrams: 10/01/17 08:55 10/01/17 08:55 Abnormal lab results 10/01/17 10/01/17 10/01/17 Range/Units 12:03 15:09 18:03 POC Glucose 266 H 277 H (68-110) mg/dl Urine Clarity Hazy H (Clear) Urine RBC 4 H (0-3) /hpf Amorphous Sediment Moderate H (None) /hpf 10/01/17 10/02/17 Range/Units 20:14 07:55 POC Glucose 263 H 141 H (68-110) mg/dl Urine Clarity (Clear) Urine RBC (0-3) /hpf Amorphous Sediment (None) /hpf Urine 10/01/17 Range/Units 15:09 Urine Color Yellow (Yellw/Straw) Urine Clarity Hazy H (Clear) Urine pH 5.0 (5.0-8.5) Ur Specific [place] 1.011 (1.002-1.035) Urine Protein 500 or greater (Neg-Trace) mg/dL Urine Glucose (UA) 500 or greater (Negative) mg/dL - Imaging Impressions Chest CT 09/30/17 00:00 CONCLUSION: 1. Small bilateral pleural effusions with basilar atelectasis. Trace pericardial fluid. 2. Severe coronary artery calcifications status post CABG. 3. Mild anasarca. Catheter tip in right atrium. Physical Exam Vital signs: Vital Signs 10/01/17 12:00 10/01/17 16:00 10/01/17 20:00 Temperature 98.2 F 98.3 F 98.5 F Pulse Rate 71 74 76 Respiratory Rate 18 20 18 Blood Pressure 152/77 H 168/79 H 162/74 H Pulse Oximetry 97 94 L 96 10/02/17 00:00 10/02/17 04:00 10/02/17 08:00 Temperature 98.4 F 98.9 F 98.4 F Pulse Rate 73 79 75 Respiratory Rate 17 17 20 Blood Pressure 161/74 H 152/64 H 166/75 H Pulse Oximetry 91 L 93 L 94 L 10/02/17 09:06 Temperature Pulse Rate Respiratory Rate Blood Pressure Pulse Oximetry 94 L Intake & Output 10/01/17 10/02/17 10/02/17 18:59 06:59 18:59 Intake Total 820 / 820 360 / 360 Output Total 665 / 665 Balance 155 / 155 360 / 360 Intake: IV 100 / 100 Maxipime Inj 500 MG In NS Inj 100 / 100 100 ML @ 200 mls/hr IV.SIG DAILY CULLEN Rx#:[id number] Oral 720 / 720 360 / 360 Output: Urine Amount (Catheter) 665 / 665 Straight 665 / 665 Other: # Incontinent Voids 3 Narrative: patient resting comfortably during dialysis treatment - Constitutional no acute distress, cooperative - Routine HEENT Exam Head: Present: normocephalic, atraumatic Eye: Present: EOMI. Absent: scleral injection - Routine Respiratory Exam Present: crackles (mild left lower lung field). Absent: rhonchi, stridor, wheezes - Routine Cardiovascular Exam Present: RRR. Absent: murmur - Routine Abdominal Exam Present: soft, normoactive bowel sounds, tenderness (mild diffuse ). Absent: mass - Routine Extremities Exam Present: pulses intact. Absent: edema, calf tenderness - Routine Skin Exam Present: dry, warm - Routine Neurological Exam Present: alert, oriented X3 - Routine Psychiatric Exam Present: normal affect, cooperative - Urinary Catheter Management Straight Cath placed during this visit: no Assessment and Plan - Assessment (1) Pneumonia Code(s): J18.9 - Pneumonia, unspecified organism Status: Acute Plan: Patient complaining of mild intermittent cough and difficulty breathing due to pain in left chest. Imaging ordered in emergency department showed ventilation defect on V/Q scan and left basilar infiltrate on CXR, suspicious for pneumonia. imaging: -CXR done in ED showed left basilar infiltrate, possible pneumonia -Chest CT: showed small bilateral pleural effusions with basilar atelectasis. Trace pericardial fluid. -Incentive spirometer ordered labs: -CBC ordered in ED was 8.0, within normal limits meds: -Patient given Azithromycin 500mg IV and Cefepime 1g IV in the ED -Discussed renal adjustment of antibiotics for patient on dialysis with pharmacy over the phone who recommend Cefepime 500 mg IV daily. (2) ESRD (end stage renal disease) on dialysis Code(s): N18.6 - End stage renal disease; Z99.2 - Dependence on renal dialysis Status: Acute Plan: Patient received dialysis on MWF schedule. Patient was transferred from dialysis clinic today prior to receiving scheduled dialysis due to chest pain. -Nephrology consulted. Dialysis performed on 09/29. Upon start of dialysis patient complained of shaking chills, severe pain at dialysis catheter site and in her groin in the location of a past cardiac catheterization, suspicious for catheter infection. BCx2 ordered and patient given Vancomycin 1gm. -BCx2: NGTD 10/02 -Second set of blood cultures, 72 hrs after start of Vancomycin ordered for . -seen by nephrology on 10/01 who planned for dialysis and noted that: If fevers or symptoms again on Monday dialysis, will need catheter removal and vascath. If postive cultures but asymptomatic on Monday dialysis, recommend to continue to treat with Vancomycin and plan for empiric guidewire catheter exchange at same site ( to preserve vein site and avoid left-sided catheter with maturing left arm AVF) If negative cultures and asymptomatic, may consider to leave catheter in place - 10/02 Per nursing in dialysis suite, patient showed no signs of fever, chills or pain during initiation of dialysis. Do not need to remove catheter. Will continue to follow up BC. -10/01 CT chest discordantly mentioned catheter tip to both be in right atrium and right ventricle in report. Called radiology to confirm actual catheter tip location. If advanced into ventricle, due to catheter infection and lack of other dialysis access will contact patient's customer associate. Per patient, she has undergone the first step of AV fistula procedure in Apr 2015, but has missed multiple appointment to establish further vascular access due to hospitalization. Will see if patient's customer associate will be able to perform the last part of the procedure if necessary, if catheter tip is misplaced. (3) Chest pain Code(s): R07.9 - Chest pain, unspecified Status: Acute Plan: Patient complaining of sharp left sided chest pain, just below the left breast, tender to palpation. Patient also notes difficultly taking deep breaths due to pain. 10/01 Pain similar to admission labs: -Troponin I negative 3x -Serial EKGs: normal sinus rhythm, no ST elevations -D-dimer high at 1.16. V/Q hernandez ordered due to patients inability to receive contrast for CT due to her ESRD for rule out of pulmonary embolism. Imaging: -CXR showed left basilar infiltrates -V/Q scan ordered in ED showed low perfusion in left lung base -Bilateral rib XR showed no fractures -10/01 CT chest showed correct catheter tip placement medications: -NTG given en route to hospital, without resolution of pain -Will give Morphine 2mg IV PRN pain 3-5, or Morphine 4mg IV PRN pain 6-10 (4) Urinary hesitancy Code(s): R39.11 - Hesitancy of micturition Status: Acute Plan: Patient complaining of urinary hesitancy and pain upon urination on 10/01 10/02 Patient continues to complain of urinary hesitancy and pain upon urination. -UA: negative for UTI -ordered bedside bladder US and subsequent straight cath if urine retention > 250 ml. Per nursing, 655 ml taken out 10/01 evening. Today at 10:30 patient has still no voided. Patient aware of option for bladder US and straight cath for relief of abdominal pain and urinary retention. (5) HTN (hypertension) Code(s): I10 - Essential (primary) hypertension Status: Acute Plan: Patient has a history of HTN -will continue home medications, including metoprolol 100 mg PO BID -patient given enalapril 10 mg PO, hydralazine 50 mg PO and amlodipine 10 PO in ED (6) Diabetes mellitus Code(s): E11.9 - Type 2 diabetes mellitus without complications Status: Acute Plan: Patient has a history of DM. BGL 88 on admission. 09/30 Patient BGL in the morning was 54 on examination. Resolved after giving D50 and apple juice. 10/01 Patient states no hypoglycemic events overnight. 10/02 Patient states no hypoglycemic events overnight. -Will continue on half patient's home dose of Levemir 8u HS, to avoid hypoglycemic events. -Hypoglycemic protocol order on admission. (7) Nutrition, metabolism, and development symptoms Code(s): R63.8 - Other symptoms and signs concerning food and fluid intake Status: Acute Plan: Fluids: None Nutrition: Will place patient on renal, heart health and diabetic diet Electrolytes: Will monitor and replete as needed (8) DVT prophylaxis Status: Acute Plan: DVT Prophylaxis: Heparin IV q8hr (1) Pneumonia Qualifiers: Pneumonia type: due to unspecified organism Laterality: left Lung location: lower lobe of lung Qualified Code(s): J18.1 - Lobar pneumonia, unspecified organism (3) Chest pain Qualifiers: Chest pain type: unspecified Qualified Code(s): R07.9 - Chest pain, unspecified
[2017-10-02] MEDS: amLODIPine 10 MG Tablet PO SCH (12:58)
[2017-10-02] MEDS: Isosorbide Mononitrate 60 MG ER 24HR Tablet (Imdur) PO SCH (12:58)
[2017-10-02] MEDS: hydrALAZINE 50 MG Tablet PO SCH ×3 (12:59→18:03)
[2017-10-02] MEDS: Folic Acid 1 MG Tablet PO SCH (12:59)
[2017-10-02] MEDS: Senna/Docusate Sodium 8.6/50 MG Tablet PO SCH ×2 (12:59→20:45)
[2017-10-02] MEDS: Gabapentin 300 MG Capsule PO SCH (13:00)
[2017-10-02] MEDS: Metoprolol Tartrate 100 MG Tablet PO SCH ×2 (13:00→20:47)
[2017-10-02] MEDS: Cefepime Inj 500 MG in Sodium Chlor 0.9% Inj 100 ML IV.SIG SCH (13:07)
[2017-10-02] MEDS: Insulin Detemir Inj 1,000 UNIT/10 ML Vial SQ SCH (20:46)
[2017-10-03] MEDS: Heparin - SQ 10,000 UNITS/ML Vial SQ SCH ×3 (01:08→17:55)
[2017-10-03] MEDS: Morphine Inj 4 MG/ML Vial IV.PUSH PRN ×3 (05:49→21:29)
[2017-10-03 08:03] LABS: Hematocrit 37.8 % (35.0-46.0); Hemoglobin 12.4 gm/dL (11.6-15.3); Mean Corpuscular Hemoglobin 32.1 pg (27.0-34.0); Mean Corpuscular Volume 97.5 fL (80.0-100.0); Mean Platelet Volume 8.4 fL (7.0-11.0); Platelet Count 268 th/mm3 (150-450); Red Blood Count 3.87 mil/mm3 (4.00-5.30); Red Cell Distribution Width 15.5 % (11.6-17.2); White Blood Count 4.9 th/mm3 (4.0-11.0)
[2017-10-03] MEDS: Insulin NovoLOG Aspart Correctional Sugar Inj SQ SCH ×4 (08:03→21:00)
[2017-10-03 08:33] LABS: Calcium 8.9 mg/dL (8.5-10.1); Carbon Dioxide 25.7 meq/L (21.0-32.0); Potassium 4.3 meq/L (3.5-5.1)
--- NOTE | 2017-10-03 09:13 | P.PNNP ---
Subjective Interval history: 4L fluid removal yesterday with dialysis. She reports urinary retention, required straight catheterization and 650 ml was removed. No hx of this in the past. Denies chest pain currently. <Rhona Ansari - Last Filed: 10/03/17 09:03> Physical Exam Vital signs: Vital Signs 10/02/17 09:06 10/02/17 12:00 10/02/17 16:00 Temperature 98.5 F Pulse Rate 82 85 Respiratory Rate 20 Blood Pressure 98/60 L Pulse Oximetry 94 L 96 10/02/17 20:00 10/03/17 00:00 10/03/17 04:00 Temperature 98.6 F 99.7 F H 98.2 F Pulse Rate 81 84 82 Respiratory Rate 18 20 18 Blood Pressure 102/59 L 164/75 H 169/79 H Pulse Oximetry 97 96 96 Intake & Output 10/02/17 10/03/17 10/03/17 18:59 06:59 18:59 Intake Total 580 / 580 480 / 480 Output Total 4600 / 4600 0 / 0 Balance -4020 / -4020 480 / 480 Weight 62 kg Intake: IV 100 / 100 Maxipime Inj 500 MG In NS Inj 100 / 100 100 ML @ 200 mls/hr IV.SIG DAILY CULLEN Rx#:[id number] Oral 480 / 480 480 / 480 Output: Urine 600 / 600 0 / 0 Hemodialysis Amount 4000 / 4000 Other: # Bowel Movements 0 0 - Constitutional no acute distress - Routine HEENT Exam Head: Present: normocephalic - Routine Neck Exam Present: supple, full ROM - Routine Respiratory Exam Present: CTA bilaterally. Absent: accessory muscle use, respiratory distress, wheezes - Routine Cardiovascular Exam Present: RRR, S1, S2 - Routine Abdominal Exam Present: soft, normoactive bowel sounds - Routine Extremities Exam Present: full ROM, pulses intact. Absent: edema - Routine Skin Exam Present: intact, warm - Routine Neurological Exam Present: alert, oriented X3, CN II-XII intact - Detailed Neurological Exam: Coma Scale Eye Opening: Spontaneous Verbal Response: Oriented Motor Response: Obey commands [place] Coma Scale Total: 15 - Routine Psychiatric Exam Present: normal affect, normal thought process - Urinary Catheter Management Straight Cath placed during this visit: yes Urethral indwelling: No Reason for continuing: Acute urinary retention Insertion date: 10/02/17 (has had straight cath x 2 ) Insertion time: 15:15 <Rhona Ansari - Last Filed: 10/03/17 09:03> Vital signs: Vital Signs 10/02/17 12:00 10/02/17 16:00 10/02/17 20:00 Temperature 98.5 F 98.6 F Pulse Rate 82 85 81 Respiratory Rate 20 18 Blood Pressure 98/60 L 102/59 L Pulse Oximetry 96 97 10/03/17 00:00 10/03/17 04:00 10/03/17 08:00 Temperature 99.7 F H 98.2 F 98.6 F Pulse Rate 84 82 81 Respiratory Rate 20 18 20 Blood Pressure 164/75 H 169/79 H 172/79 H Pulse Oximetry 96 96 95 10/03/17 10:03 Temperature Pulse Rate Respiratory Rate Blood Pressure Pulse Oximetry 95 Intake & Output 10/02/17 10/03/17 10/03/17 18:59 06:59 18:59 Intake Total 580 / 580 480 / 480 Output Total 4600 / 4600 0 / 0 Balance -4020 / -4020 480 / 480 Weight 62 kg Intake: IV 100 / 100 Maxipime Inj 500 MG In NS Inj 100 / 100 100 ML @ 200 mls/hr IV.SIG DAILY CULLEN Rx#:[id number] Oral 480 / 480 480 / 480 Output: Urine 600 / 600 0 / 0 Hemodialysis Amount 4000 / 4000 Other: # Bowel Movements 0 0 - Urinary Catheter Management Straight Cath placed during this visit: no <Pierce Dawn - Last Filed: 10/03/17 10:05> Assessment and Plan - Assessment (1) ESRD (end stage renal disease) on dialysis Code(s): N18.6 - End stage renal disease; Z99.2 - Dependence on renal dialysis Status: Acute Plan: ESRD MWF. 4L UF yesterday. Monitor fluid volume status and electrolytes. Using a tunneled CVC while AVF matures. Has appointment with Dr. Papito huntley to evaluate. Avoid gadolinium and IVF. Monitor electrolytes and fluid status If fevers or symptoms again on Monday dialysis, will need catheter removal and vascath. If positive cultures but asymptomatic on Monday dialysis, recommend to continue to treat with Vancomycin and plan for empiric guidewire catheter exchange at same site ( to preserve vein site and avoid left-sided catheter with maturing left arm AVF) If negative cultures and asymptomatic, may consider to leave catheter in place. (2) Chest pain Code(s): R07.9 - Chest pain, unspecified Status: Acute Qualifiers: Chest pain type: unspecified Qualified Code(s): R07.9 - Chest pain, unspecified Plan: Etiology unclear. Has not seen Dr. Lee since CABG. VQ negative for PE. EKG unremarkable. Possible symptoms due to pneumonia or costochondritis? Continue pain control. (3) Fever and chills Code(s): R50.9 - Fever, unspecified Status: Acute Onset Date: ~09/29/17 Plan: Low grade fever overnight. Blood cultures were drawn from CVC and also peripheral. Negative to date. On Vancomycin with HD and IV Cefepime. (4) HTN (hypertension) Code(s): I10 - Essential (primary) hypertension Status: Acute Plan: She is on enalapril, hydralazine, clonidine, isosorbide, Norvasc, and metoprolol. Monitor BP and titrate as needed. <Rhona Ansari - Last Filed: 10/03/17 09:03> - Assessment (1) ESRD (end stage renal disease) on dialysis Code(s): N18.6 - End stage renal disease; Z99.2 - Dependence on renal dialysis Status: Acute (2) Chest pain Code(s): R07.9 - Chest pain, unspecified Status: Acute Qualifiers: Chest pain type: unspecified Qualified Code(s): R07.9 - Chest pain, unspecified (3) Fever and chills Code(s): R50.9 - Fever, unspecified Status: Acute Onset Date: ~09/29/17 (4) HTN (hypertension) Code(s): I10 - Essential (primary) hypertension Status: Acute - Attending Attestation patient was seen and examined. Agree with above assessment and plan. Having problems of urinary retention. We will relieve constipation, may need urology evaluation. <Pierce Dawn - Last Filed: 10/03/17 10:05>
[2017-10-03] MEDS: hydrALAZINE 50 MG Tablet PO SCH ×3 (09:18→17:56)
[2017-10-03] MEDS: Isosorbide Mononitrate 60 MG ER 24HR Tablet (Imdur) PO SCH (09:18)
[2017-10-03] MEDS: Cefepime Inj 500 MG in Sodium Chlor 0.9% Inj 100 ML IV.SIG SCH (09:18)
[2017-10-03] MEDS: Folic Acid 1 MG Tablet PO SCH (09:19)
[2017-10-03] MEDS: Senna/Docusate Sodium 8.6/50 MG Tablet PO SCH ×2 (09:19→21:23)
[2017-10-03] MEDS: amLODIPine 10 MG Tablet PO SCH (09:19)
[2017-10-03] MEDS: Gabapentin 300 MG Capsule PO SCH (09:20)
[2017-10-03] MEDS: Metoprolol Tartrate 100 MG Tablet PO SCH ×2 (09:20→21:23)
[2017-10-03] MEDS: Polyethylene Glycol 3350 17 GM Packet PO SCH (11:22)
[2017-10-03] MEDS: Insulin Detemir Inj 1,000 UNIT/10 ML Vial SQ SCH (21:22)
--- NOTE | 2017-10-03 21:28 | P.PNFP ---
Subjective Interval history: Patient seen and examined this morning. Patient of complaining of moderate diffuse abdominal pressure associated with urinary retention. She has not voided since being straight cath'd yesterday evening following bladder scan showing about 500ml urine. Patient notes that she started having urinary hesitancy and urgency upon arrival at the emergency department on 09/29. She notes no change in medications prior to these symptoms. She stresses that she does not want a pena catheter and would rather try and void herself before being straight cath'd again. We discussed the risks of not voiding her urine again today. She understands and would like to continue to try to urinate on her own because she does not want to straight cath at home, or rely on a pena catheter. She understands that she had the option for straight cath if she is in significant pain. At the moment her left-sided chest pain is not as prominent as her abdominal pain. Denies any chills or significant pain during dialysis yesterday. No hypoglycemic episodes overnight. Denies fever, chills, nausea, vomiting, shortness of breath, or leg pain. <Lucrecia Lara - 10/03/17 21:34> Results - Labs Result diagrams: 10/04/17 05:40 10/04/17 05:40 <Brittni Ramirez - 10/04/17 12:09> Abnormal lab results 10/03/17 10/03/17 10/03/17 Range/Units 12:25 17:20 19:41 RBC (4.00-5.30) mil/mm3 Sodium (136-145) meq/L BUN (7-18) mg/dL Creatinine (0.50-1.00) mg/dL Estimated GFR (>89) mL/min POC Glucose 165 H 188 H 232 H (68-110) mg/dl Random Glucose (74-106) mg/dL 10/04/17 10/04/17 10/04/17 Range/Units 05:40 05:40 08:13 RBC 3.73 L (4.00-5.30) mil/mm3 Sodium 135 L (136-145) meq/L BUN 49 H (7-18) mg/dL Creatinine 5.99 H (0.50-1.00) mg/dL Estimated GFR 9 L (>89) mL/min POC Glucose 122 H (68-110) mg/dl Random Glucose 138 H (74-106) mg/dL Short CBC 10/04/17 Range/Units 05:40 WBC 4.8 (4.0-11.0) th/mm3 Hgb 11.9 (11.6-15.3) gm/dL Hct 36.6 (35.0-46.0) % Plt Count 265 (150-450) th/mm3 [facility] 10/04/17 05:40 Sodium 135 L Potassium 4.8 Chloride 98 Carbon Dioxide 27.7 BUN 49 H Creatinine 5.99 H Calcium 8.6 <Brittni Ramirez - 10/04/17 12:09> Abnormal lab results 10/03/17 10/03/17 10/03/17 Range/Units 06:55 06:55 07:59 RBC 3.87 L (4.00-5.30) mil/mm3 BUN 37 H (7-18) mg/dL Creatinine 4.97 H (0.50-1.00) mg/dL Estimated GFR 11 L (>89) mL/min POC Glucose 123 H (68-110) mg/dl Random Glucose 133 H (74-106) mg/dL 10/03/17 10/03/17 10/03/17 Range/Units 12:25 17:20 19:41 RBC (4.00-5.30) mil/mm3 BUN (7-18) mg/dL Creatinine (0.50-1.00) mg/dL Estimated GFR (>89) mL/min POC Glucose 165 H 188 H 232 H (68-110) mg/dl Random Glucose (74-106) mg/dL Short CBC 10/03/17 Range/Units 06:55 WBC 4.9 (4.0-11.0) th/mm3 Hgb 12.4 (11.6-15.3) gm/dL Hct 37.8 (35.0-46.0) % Plt Count 268 (150-450) th/mm3 [facility] 10/03/17 06:55 Sodium 137 Potassium 4.3 Chloride 99 Carbon Dioxide 25.7 BUN 37 H Creatinine 4.97 H Calcium 8.9 <Lucrecia Lara - 10/03/17 21:34> Physical Exam Vital signs: Vital Signs 10/03/17 16:00 10/03/17 20:00 10/04/17 00:00 Temperature 97.7 F 98.4 F 98.1 F Pulse Rate 78 81 81 Respiratory Rate 20 18 18 Blood Pressure 107/55 L 152/67 H 164/70 H Pulse Oximetry 97 95 95 10/04/17 00:14 10/04/17 04:00 10/04/17 08:00 Temperature 98.7 F 98.3 F Pulse Rate 77 82 Respiratory Rate 9 L 18 20 Blood Pressure 157/67 H 160/72 H Pulse Oximetry 94 L 94 L 10/04/17 10:29 Temperature Pulse Rate 80 Respiratory Rate Blood Pressure Pulse Oximetry Intake & Output 10/03/17 10/04/17 10/04/17 18:59 06:59 18:59 Intake Total 820 / 820 506 / 506 Output Total 600 / 600 500 / 500 Balance 220 / 220 6 / 6 Weight 63.5 kg Intake: IV 100 / 100 Maxipime Inj 500 MG In NS Inj 100 / 100 100 ML @ 200 mls/hr IV.SIG DAILY CULLEN Rx#:[id number] Oral 720 / 720 506 / 506 Output: Urine Amount (Catheter) 600 / 600 500 / 500 Straight 600 / 600 500 / 500 Other: Date of Last Bowel Movement 09/29/17 09/29/17 # Bowel Movements 0 <Vey,Brittni - 10/04/17 12:09> Vital Signs 10/03/17 00:00 10/03/17 04:00 10/03/17 08:00 Temperature 99.7 F H 98.2 F 98.6 F Pulse Rate 84 82 83 Respiratory Rate 20 18 20 Blood Pressure 164/75 H 169/79 H 172/79 H Pulse Oximetry 96 96 95 10/03/17 10:03 10/03/17 12:00 10/03/17 16:00 Temperature 98.3 F 97.7 F Pulse Rate 80 78 Respiratory Rate 20 20 Blood Pressure 154/70 H 107/55 L Pulse Oximetry 95 94 L 97 Intake & Output 10/03/17 10/03/17 10/04/17 06:59 18:59 06:59 Intake Total 480 / 480 820 / 820 Output Total 0 / 0 600 / 600 Balance 480 / 480 220 / 220 Weight 62 kg Intake: IV 100 / 100 Maxipime Inj 500 MG In NS Inj 100 / 100 100 ML @ 200 mls/hr IV.SIG DAILY CULLEN Rx#:[id number] Oral 480 / 480 720 / 720 Output: Urine 0 / 0 Urine Amount (Catheter) 600 / 600 Straight 600 / 600 Other: Date of Last Bowel Movement 09/29/17 # Bowel Movements 0 0 <[facility] [place] 10/03/17 21:34> Narrative: Patient laying uncomfortably on side, with knees bent to relieve abdominal pressure <[facility] [place] 10/03/17 21:34> - Constitutional mild distress, cooperative <[facility] [place] 10/03/17 21:34> - Routine HEENT Exam Head: Present: normocephalic, atraumatic <[facility] [place] 10/03/17 21:34> Eye: Present: EOMI. Absent: scleral injection <[facility] [place] 10/03/17 21: 34> ENT: Present: mucous membranes moist <[facility] [place] 10/03/17 21:34> - Routine Respiratory Exam Present: crackles (mild in left lower lung field ). Absent: respiratory distress, rhonchi, stridor, wheezes <[facility] [place] 10/03/17 21:34> - Routine Cardiovascular Exam Present: RRR, S1, S2 <[facility] [place] 10/03/17 21:34> - Routine Abdominal Exam Present: normoactive bowel sounds, tenderness (diffuse, moderate to light palpation), firm <[facility] [place] 10/03/17 21:34> - Routine Extremities Exam Present: pulses intact. Absent: edema, calf tenderness <[facility] [place] 01/11 21:34> - Routine Skin Exam Present: dry, warm <[facility] [place] 10/03/17 21:34> - Routine Neurological Exam Present: alert, oriented X3 <[facility] [place] 10/03/17 21:34> - Routine Psychiatric Exam Present: normal affect, cooperative <[facility] [place] 10/03/17 21:34> - Urinary Catheter Management Straight Cath placed during this visit: no <Brittni Ramirez - 10/04/17 12:09> yes, but has since been removed by the nurse <[facility] [place] 10/03/17 21:34> Urethral indwelling: No <[facility] [place] 10/03/17 21:34> Reason for continuing: Not indwelling catheter <Lucrecia Lara - 10/03/17 21: 34> Insertion date: 10/03/17 <Lucrecia Lara 10/03/17 21:34> Insertion time: 11:50 <Lucrecia Lara - 10/03/17 21:34> Removal date: 10/03/17 <Lucrecia Lara 10/03/17 21:34> Removal time: 11:51 <Lucrecia Lara 10/03/17 21:34> Assessment and Plan - Assessment (1) Urinary hesitancy Code(s): R39.11 - Hesitancy of micturition Status: Acute (2) ESRD (end stage renal disease) on dialysis Code(s): N18.6 - End stage renal disease; Z99.2 - Dependence on renal dialysis Status: Acute (3) Pneumonia Code(s): J18.9 - Pneumonia, unspecified organism Status: Acute (4) Chest pain Code(s): R07.9 - Chest pain, unspecified Status: Acute (5) HTN (hypertension) Code(s): I10 - Essential (primary) hypertension Status: Acute (6) Diabetes mellitus Code(s): E11.9 - Type 2 diabetes mellitus without complications Status: Acute (7) Nutrition, metabolism, and development symptoms Code(s): R63.8 - Other symptoms and signs concerning food and fluid intake Status: Acute (8) DVT prophylaxis Status: Acute <Brittni Ramirez - 10/04/17 12:09> (1) Urinary hesitancy Code(s): R39.11 - Hesitancy of micturition Status: Acute Plan: Patient complaining of urinary hesitancy and pain upon urination on 10/01, which she is still experiencing. Patient has been straight cath's 2 days in a row, following bladder scans showing at least 500-600 ml in the bladder. UA was negative for UTI on 10/01. Reviewed medications that can contribute to urinary retention, hydralazine started after patients symptoms started and patient denies urinary retention due to benadryl in the past. -Urology consulted on 10/03 (2) ESRD (end stage renal disease) on dialysis Code(s): N18.6 - End stage renal disease; Z99.2 - Dependence on renal dialysis Status: Acute Plan: Patient receives dialysis on MWF schedule. Patient was transferred from dialysis clinic today prior to receiving scheduled dialysis due to chest pain. Dialysis performed on 09/29 in hospital. Upon start of dialysis patient complained of shaking chills, severe pain at dialysis catheter site and in her groin in the location of a past cardiac catheterization, suspicious for catheter infection. Nephrology BCx2 ordered and patient given Vancomycin 1gm. Current catheter shows good tip placement on imaging and blood & catheter tip cultures have all been negative thus far, therefore there is no need to remove temporary catheter. (3) Pneumonia Code(s): J18.9 - Pneumonia, unspecified organism Status: Acute Plan: Patient complaining of mild intermittent cough and difficulty breathing due to pain in left chest. Imaging ordered in emergency department showed ventilation defect on V/Q scan and left basilar infiltrate on CXR, which together are suspicious for pneumonia. She is being treated empirically for pneumonia at this time. -Incentive spirometer ordered -Day 4 of empiric treatment with Cefepime 500 mg IV daily, dosing per pharmacy recommendations (4) Chest pain Code(s): R07.9 - Chest pain, unspecified Status: Acute Plan: Patient complaining of sharp left sided chest pain, just below the left breast, tender to palpation. Patient also notes difficultly taking deep breaths due to pain. ACS r/o negative. D-dimer was high at 1.6, however V/Q scan with low probability of PE. No rib fractures seen on bilateral rib XR. CXR and V/Q scan together suspicious for left lower lobe pneumonia, for which she is receiving empiric treatment. Pain is most likely due to pleurisy associated with infection of the lung parenchyma. May also consider costochondritis or nerve impingement due to increased tenderness of left lower ribs on palpation. -Will give Morphine 2mg IV PRN pain 3-5, or Morphine 4mg IV PRN pain 6-10 (5) HTN (hypertension) Code(s): I10 - Essential (primary) hypertension Status: Acute Plan: Patient has a history of HTN -Will continue home medications, including metoprolol 100 mg PO BID -Added amlodipine 10 mg PO daily, Enalapril 20 mg PO BID, Hydralazine 50 mg TID and Clonidine 0.1 mg PO PRN (6) Diabetes mellitus Code(s): E11.9 - Type 2 diabetes mellitus without complications Status: Acute Plan: Patient has a history of DM. Patient had a single hypoglycemic episode while in the hospital on 09/30. BGL in the morning was 54 on examination, but resolved after giving D50 and apple juice. No hypoglycemic events since then. -Patient's BGL in the past 2 days have been between 120-230. Will increase Levemir to home dose of 15u at night with ISS. -Hypoglycemic protocol ordered on admission (7) Nutrition, metabolism, and development symptoms Code(s): R63.8 - Other symptoms and signs concerning food and fluid intake Status: Acute Plan: Fluids: None Nutrition: Will place patient on renal, heart health and diabetic diet Electrolytes: Will monitor and replete as needed (8) DVT prophylaxis Status: Acute Plan: DVT Prophylaxis: Heparin IV q8hr <Lucrecia Lara - 10/03/17 20:27> - Assessment and Plan 52 y/o F with hx of ESRD who undergoes dialysis on a MWF schedule, HTN, DM and recent history of cardiac bypass surgery in July of this year, presented with left-sided chest pain. Cardiac cause of chest pain ruled out on admission. Patient is being treated empirically for pneumonia. Patient complaining of urinary retention for 2 days. Plan for discharge to home following urology consult. <Lucrecia Lara - 10/03/17 21:34> - Attending Attestation Patient seen, examined on 10/03/2017, and discussed with resident team. I agree with assessment and management as documented and discussed with me. Pt with urinary retention, which has required straight cath. This is a new problem for her since arrival to hospital. Will treat constipation, in hopes this may improve. Consult urology; appreciate recs. Blood cultures negative to date. Reassuring regarding line there is no evidence of line infection. <Brittni Ramirez - 10/04/17 12:09> <Lucrecia Lara - Last Filed: 10/03/17 20:27> (3) Pneumonia Qualifiers: Pneumonia type: due to unspecified organism Laterality: left Lung location: lower lobe of lung Qualified Code(s): J18.1 - Lobar pneumonia, unspecified organism (4) Chest pain Qualifiers: Chest pain type: unspecified Qualified Code(s): R07.9 - Chest pain, unspecified <Vey,Brittni - Last Filed: 10/04/17 12:09> (3) Pneumonia Qualifiers: Pneumonia type: due to unspecified organism Laterality: left Lung location: lower lobe of lung Qualified Code(s): J18.1 - Lobar pneumonia, unspecified organism (4) Chest pain Qualifiers: Chest pain type: unspecified Qualified Code(s): R07.9 - Chest pain, unspecified <Lucrecia Lara - Last Filed: 10/03/17 20:27> (3) Pneumonia Qualifiers: Pneumonia type: due to unspecified organism Laterality: left Lung location: lower lobe of lung Qualified Code(s): J18.1 - Lobar pneumonia, unspecified organism (4) Chest pain Qualifiers: Chest pain type: unspecified Qualified Code(s): R07.9 - Chest pain, unspecified <Vey,Brittni - Last Filed: 10/04/17 12:09> (3) Pneumonia Qualifiers: Pneumonia type: due to unspecified organism Laterality: left Lung location: lower lobe of lung Qualified Code(s): J18.1 - Lobar pneumonia, unspecified organism (4) Chest pain Qualifiers: Chest pain type: unspecified Qualified Code(s): R07.9 - Chest pain, unspecified
[2017-10-04] MEDS: Morphine Inj 4 MG/ML Vial IV.PUSH PRN (00:12)
[2017-10-04 06:30] LABS: Hematocrit 36.6 % (35.0-46.0); Hemoglobin 11.9 gm/dL (11.6-15.3); Mean Corpuscular HGB Conc 32.6 % (32.0-36.0); Mean Corpuscular Volume 98.2 fL (80.0-100.0); Mean Platelet Volume 7.9 fL (7.0-11.0); Platelet Count 265 th/mm3 (150-450); Red Blood Count 3.73 mil/mm3 (4.00-5.30); White Blood Count 4.8 th/mm3 (4.0-11.0)
[2017-10-04 07:07] LABS: Calcium 8.6 mg/dL (8.5-10.1); Carbon Dioxide 27.7 meq/L (21.0-32.0); Potassium 4.8 meq/L (3.5-5.1)
--- NOTE | 2017-10-04 08:44 | P.PNNP ---
Subjective Interval history: patient continues to complain of dysuria, difficulty urination. Afebrile. Tolerating diet. Physical Exam Vital signs: Vital Signs 10/03/17 10:03 10/03/17 12:00 10/03/17 16:00 Temperature 98.3 F 97.7 F Pulse Rate 80 78 Respiratory Rate 20 20 Blood Pressure 154/70 H 107/55 L Pulse Oximetry 95 94 L 97 10/03/17 20:00 10/04/17 00:00 10/04/17 00:14 Temperature 98.4 F 98.1 F Pulse Rate 81 81 Respiratory Rate 18 18 9 L Blood Pressure 152/67 H 164/70 H Pulse Oximetry 95 95 10/04/17 04:00 10/04/17 08:00 Temperature 98.7 F 98.3 F Pulse Rate 77 82 Respiratory Rate 18 20 Blood Pressure 157/67 H 160/72 H Pulse Oximetry 94 L 94 L Intake & Output 10/03/17 10/04/17 10/04/17 18:59 06:59 18:59 Intake Total 820 / 820 506 / 506 Output Total 600 / 600 500 / 500 Balance 220 / 220 6 / 6 Weight 63.5 kg Intake: IV 100 / 100 Maxipime Inj 500 MG In NS Inj 100 / 100 100 ML @ 200 mls/hr IV.SIG DAILY CULLEN Rx#:[id number] Oral 720 / 720 506 / 506 Output: Urine Amount (Catheter) 600 / 600 500 / 500 Straight 600 / 600 500 / 500 Other: Date of Last Bowel Movement 09/29/17 09/29/17 # Bowel Movements 0 - Constitutional no acute distress - Routine HEENT Exam Head: Present: normocephalic Eye: Present: EOMI, PERRL ENT: Present: mucous membranes moist - Routine Neck Exam Present: supple, full ROM. Absent: JVD, carotid bruit, lymphadenopathy - Routine Respiratory Exam Present: CTA bilaterally - Routine Cardiovascular Exam Present: RRR, S1, S2 - Routine Abdominal Exam Present: soft, normoactive bowel sounds - Routine Extremities Exam Present: full ROM. Absent: edema - Routine Skin Exam Present: intact. Absent: cyanosis - Routine Neurological Exam Present: alert, oriented X3 - Routine Psychiatric Exam Present: normal affect - Urinary Catheter Management Straight Cath placed during this visit: yes, but has since been removed by the nurse Urethral indwelling: No Reason for continuing: Acute urinary retention Insertion date: 10/03/17 Insertion time: 23:40 Removal date: 10/03/17 Removal time: 11:51 Assessment and Plan - Assessment (1) ESRD (end stage renal disease) on dialysis Code(s): N18.6 - End stage renal disease; Z99.2 - Dependence on renal dialysis Status: Acute Plan: ESRD MWF. Dialysis is scheduled for today. Using a tunneled CVC while AVF matures. Has appointment with Dr. Cobos outpatient to evaluate. Avoid gadolinium and IVF. Monitor electrolytes and fluid status Blood cultures are negative so far. On Vancomycin and Cefepime. Antibiotics can be stopped. (2) Chest pain Code(s): R07.9 - Chest pain, unspecified Status: Acute Qualifiers: Chest pain type: unspecified Qualified Code(s): R07.9 - Chest pain, unspecified Plan: Etiology unclear. Has not seen Dr. Lee since CABG. VQ negative for PE. EKG unremarkable. Possible symptoms due to pneumonia or costochondritis? Discontinue Morphine. Improved. (3) Fever and chills Code(s): R50.9 - Fever, unspecified Status: Acute Onset Date: ~09/29/17 Plan: No fever. Blood cultures are negative so far. On Vancomycin with HD and IV Cefepime. (4) HTN (hypertension) Code(s): I10 - Essential (primary) hypertension Status: Acute Plan: She is on enalapril, hydralazine, clonidine, isosorbide, Norvasc, and metoprolol. Monitor BP and titrate as needed. - Attending Attestation patient can be discharged from renal standpoint, but she is concerned about urinary symptoms. Urology has been consulted.
--- NOTE | 2017-10-04 11:13 | P.PNFP ---
Subjective Interval history: Patient seen and examined this morning in dialysis. She states that the chest pain that she had initially on admission has returned. Is located underneath her left breast and is worse with deep breaths. She is also still experiencing urinary retention. She is currently experiencing pain from her bladder being full. However, she does not want to be straight cathed. She also has not had a bowel movement since admission even with taking the MiraLAX yesterday. No fever/chills, no shortness of breath. <Chandni Hager - 10/04/17 16:43> Results - Labs Result diagrams: 10/04/17 05:40 10/04/17 05:40 <Brittni Ramirez - 10/04/17 20:01> Abnormal lab results 10/03/17 10/04/17 10/04/17 Range/Units 19:41 05:40 05:40 RBC 3.73 L (4.00-5.30) mil/mm3 Sodium 135 L (136-145) meq/L BUN 49 H (7-18) mg/dL Creatinine 5.99 H (0.50-1.00) mg/dL Estimated GFR 9 L (>89) mL/min POC Glucose 232 H (68-110) mg/dl Random Glucose 138 H (74-106) mg/dL 10/04/17 10/04/17 10/04/17 Range/Units 08:13 12:39 17:54 RBC (4.00-5.30) mil/mm3 Sodium (136-145) meq/L BUN (7-18) mg/dL Creatinine (0.50-1.00) mg/dL Estimated GFR (>89) mL/min POC Glucose 122 H 147 H 266 H (68-110) mg/dl Random Glucose (74-106) mg/dL Short CBC 10/04/17 Range/Units 05:40 WBC 4.8 (4.0-11.0) th/mm3 Hgb 11.9 (11.6-15.3) gm/dL Hct 36.6 (35.0-46.0) % Plt Count 265 (150-450) th/mm3 BMP 10/04/17 05:40 Sodium 135 L Potassium 4.8 Chloride 98 Carbon Dioxide 27.7 BUN 49 H Creatinine 5.99 H Calcium 8.6 <Brittni Ramirez - 10/04/17 20:01> Abnormal lab results 10/03/17 10/03/17 10/03/17 Range/Units 12:25 17:20 19:41 RBC (4.00-5.30) mil/mm3 Sodium (136-145) meq/L BUN (7-18) mg/dL Creatinine (0.50-1.00) mg/dL Estimated GFR (>89) mL/min POC Glucose 165 H 188 H 232 H (68-110) mg/dl Random Glucose (74-106) mg/dL 10/04/17 10/04/17 10/04/17 Range/Units 05:40 05:40 08:13 RBC 3.73 L (4.00-5.30) mil/mm3 Sodium 135 L (136-145) meq/L BUN 49 H (7-18) mg/dL Creatinine 5.99 H (0.50-1.00) mg/dL Estimated GFR 9 L (>89) mL/min POC Glucose 122 H (68-110) mg/dl Random Glucose 138 H (74-106) mg/dL Short CBC 10/04/17 Range/Units 05:40 WBC 4.8 (4.0-11.0) th/mm3 Hgb 11.9 (11.6-15.3) gm/dL Hct 36.6 (35.0-46.0) % Plt Count 265 (150-450) th/mm3 BMP 10/04/17 05:40 Sodium 135 L Potassium 4.8 Chloride 98 Carbon Dioxide 27.7 BUN 49 H Creatinine 5.99 H Calcium 8.6 <Chandni Hager - 10/04/17 11:12> Physical Exam Vital signs: Vital Signs 10/04/17 00:00 10/04/17 00:14 10/04/17 04:00 Temperature 98.1 F 98.7 F Pulse Rate 81 77 Respiratory Rate 18 9 L 18 Blood Pressure 164/70 H 157/67 H Pulse Oximetry 95 94 L 10/04/17 08:00 10/04/17 10:29 10/04/17 16:00 Temperature 98.3 F 99.5 F Pulse Rate 82 80 92 H Respiratory Rate 20 20 Blood Pressure 160/72 H 175/84 H Pulse Oximetry 94 L 94 L 10/04/17 16:27 10/04/17 17:41 Temperature Pulse Rate 90 Respiratory Rate 20 Blood Pressure Pulse Oximetry Intake & Output 10/04/17 10/04/17 10/05/17 06:59 18:59 06:59 Intake Total 506 / 506 480 / 480 Output Total 500 / 500 3000 / 3000 Balance -2520 / -2520 Weight 63.5 kg Intake: IV 0 / 0 Maxipime Inj 500 MG In NS Inj 0 / 0 100 ML @ 200 mls/hr IV.SIG DAILY CULLEN Rx#:[id number] Oral 506 / 506 480 / 480 Output: Hemodialysis Amount 3000 / 3000 Urine Amount (Catheter) 500 / 500 Straight 500 / 500 Other: Date of Last Bowel Movement 09/29/17 <Brittni Ramirez - 10/04/17 20:01> Vital Signs 10/03/17 12:00 10/03/17 16:00 10/03/17 20:00 Temperature 98.3 F 97.7 F 98.4 F Pulse Rate 80 78 81 Respiratory Rate 20 20 18 Blood Pressure 154/70 H 107/55 L 152/67 H Pulse Oximetry 94 L 97 95 10/04/17 00:00 10/04/17 00:14 10/04/17 04:00 Temperature 98.1 F 98.7 F Pulse Rate 81 77 Respiratory Rate 18 9 L 18 Blood Pressure 164/70 H 157/67 H Pulse Oximetry 95 94 L 10/04/17 08:00 10/04/17 10:29 Temperature 98.3 F Pulse Rate 82 80 Respiratory Rate 20 Blood Pressure 160/72 H Pulse Oximetry 94 L Intake & Output 10/03/17 10/04/17 10/04/17 18:59 06:59 18:59 Intake Total 820 / 820 506 / 506 Output Total 600 / 600 500 / 500 Balance 220 / 220 Weight 63.5 kg Intake: IV 100 / 100 Maxipime Inj 500 MG In NS Inj 100 / 100 100 ML @ 200 mls/hr IV.SIG DAILY CULLEN Rx#:[id number] Oral 720 / 720 506 / 506 Output: Urine Amount (Catheter) 600 / 600 500 / 500 Straight 600 / 600 500 / 500 Other: Date of Last Bowel Movement 09/29/17 09/29/17 # Bowel Movements 0 <Chandni Hager G - 10/04/17 11:12> Narrative: GENERAL: -[place] female laying in bed holding left breast being dialyzed, in mild distress. SKIN: Warm and dry. HEAD: Atraumatic. Normocephalic. EYES: Pupils equal and round. No scleral icterus. No injection or drainage. ENT: No nasal bleeding or discharge. Mucous membranes pink and moist. NECK: Trachea midline. No JVD. CARDIOVASCULAR: Regular rate and rhythm. Chest wall underneath left breast: tenderness to palpation of lower ribs RESPIRATORY: No accessory muscle use. Clear to auscultation. Breath sounds equal bilaterally. GASTROINTESTINAL: Abdomen firm, tender in suprapubic area, nondistended. MUSCULOSKELETAL: Extremities without clubbing, cyanosis, or edema. No obvious deformities. NEUROLOGICAL: Awake and alert. No obvious cranial nerve deficits. Motor grossly within normal limits. Normal speech. <Chandni Hager - 10/04/17 16:43> - Urinary Catheter Management Straight Cath placed during this visit: no <Brittni Ramirez - 10/04/17 20:01> yes, but has since been removed by the nurse <Chandni Hager - 10/04/17 16:43> Urethral indwelling: No <Chandni Hager - 10/04/17 16:43> Reason for continuing: Acute urinary retention <Chandni Hager - 10/04/17 16:43> Insertion date: 10/03/17 <Chandni Hager - 10/04/17 11:12> Insertion time: 23:40 <Chandni Hager - 10/04/17 11:12> Removal date: 10/03/17 <Chandni Hager - 10/04/17 11:12> Removal time: 11:51 <Chandni Hager - 10/04/17 11:12> Assessment and Plan - Assessment (1) Acute urinary retention Code(s): R33.8 - Other retention of urine Status: Acute (2) ESRD (end stage renal disease) on dialysis Code(s): N18.6 - End stage renal disease; Z99.2 - Dependence on renal dialysis Status: Chronic (3) Pneumonia Code(s): J18.9 - Pneumonia, unspecified organism Status: Acute (4) Chest pain Code(s): R07.9 - Chest pain, unspecified Status: Acute (5) HTN (hypertension) Code(s): I10 - Essential (primary) hypertension Status: Chronic (6) Diabetes mellitus Code(s): E11.9 - Type 2 diabetes mellitus without complications Status: Chronic (7) Nutrition, metabolism, and development symptoms Code(s): R63.8 - Other symptoms and signs concerning food and fluid intake Status: Acute (8) DVT prophylaxis Status: Acute <Brittni Ramirez - 10/04/17 20:01> (1) Acute urinary retention Code(s): R33.8 - Other retention of urine Status: Acute Plan: Patient complaining of urinary hesitancy and pain upon urination on 10/01, which has progressed to urinary retention. Patient has been straight cath'd since the to relieve her of pain, following bladder scans showing at least 500-600 ml in the bladder. UA was negative for UTI on 10/01. Reviewed medications that can contribute to urinary retention, hydralazine started after patients symptoms started and patient denies urinary retention due to Benadryl in the past. Will also consider whether constipation is a contributing factor. -Urology consulted, appreciate recommendations Recommended to continue with clean intermittent catheterization at least 3 times daily and more often if patient has suprapubic pain Follow-up as an outpatient for cystoscopy and urodynamics evaluation (2) ESRD (end stage renal disease) on dialysis Code(s): N18.6 - End stage renal disease; Z99.2 - Dependence on renal dialysis Status: Chronic Plan: Patient receives dialysis on MWF schedule. Patient was transferred from dialysis clinic today prior to receiving scheduled dialysis due to chest pain. Dialysis performed on 09/29 in hospital. Upon start of dialysis patient complained of shaking chills, severe pain at dialysis catheter site and in her groin in the location of a past cardiac catheterization, suspicious for catheter infection. Nephrology BCx2 ordered and patient given Vancomycin 1gm. Current catheter shows good tip placement on imaging and blood & catheter tip cultures have all been negative thus far, therefore there is no need to remove temporary catheter. Patient has tolerated dialysis without any catheter site pain on Monday and Monday of this week. (3) Pneumonia Code(s): J18.9 - Pneumonia, unspecified organism Status: Acute Plan: Patient complaining of mild intermittent cough and difficulty breathing due to pain in left chest. Imaging ordered in emergency department showed ventilation defect on V/Q scan and left basilar infiltrate on CXR, which together are suspicious for pneumonia. She is being treated empirically for pneumonia at this time. -Incentive spirometer ordered -Day 5 of empiric treatment with Cefepime 500 mg IV daily, dosing per pharmacy recommendations, will continue for a total of 8 days (4) Chest pain Code(s): R07.9 - Chest pain, unspecified Status: Acute Plan: Patient complaining of sharp left sided chest pain, just below the left breast, tender to palpation. Patient also notes difficultly taking deep breaths due to pain. ACS r/o negative. D-dimer was high at 1.6, however V/Q scan with low probability of PE. No rib fractures seen on bilateral rib XR. CXR and V/Q scan together suspicious for left lower lobe pneumonia, for which she is receiving empiric treatment. Pain is most likely due to pleurisy associated with infection of the lung parenchyma. May also consider costochondritis or nerve impingement due to increased tenderness of left lower ribs on palpation. -Morphine discontinued today due to constipation -Added acetaminophen IV on 10/04 for pain (5) HTN (hypertension) Code(s): I10 - Essential (primary) hypertension Status: Chronic Plan: Patient has a history of HTN -Will continue home medications, including metoprolol 100 mg PO BID -Added amlodipine 10 mg PO daily, Enalapril 20 mg PO BID, Hydralazine 50 mg TID and Clonidine 0.1 mg PO PRN (6) Diabetes mellitus Code(s): E11.9 - Type 2 diabetes mellitus without complications Status: Chronic Plan: Patient has a history of DM. Patient had a single hypoglycemic episode while in the hospital on 09/30. BGL in the morning was 54 on examination, but resolved after giving D50 and apple juice. No hypoglycemic events since then. -Levemir at home dose of 15u at night -Low-dose NovoLog sliding scale insulin -Hypoglycemic protocol ordered on admission -Bedside blood glucose monitoring (7) Nutrition, metabolism, and development symptoms Code(s): R63.8 - Other symptoms and signs concerning food and fluid intake Status: Acute Plan: Fluids: Tolerating p.o. Nutrition: renal, heart health and diabetic diet Electrolytes: Will monitor and replete as needed (8) DVT prophylaxis Status: Acute Plan: DVT Prophylaxis: Heparin IV q8hr <Chandni Hager - 10/04/17 16:15> - Assessment and Plan 52 y/o F with hx of ESRD who undergoes dialysis on a MWF schedule, HTN, DM and recent history of cardiac bypass surgery in July of this year, presented with left-sided chest pain. Cardiac cause of chest pain ruled out on admission. Patient is being treated empirically for pneumonia. Patient complaining of urinary retention. Plan for discharge to home likely tomorrow. <Chandni Hager - 10/04/17 16:43> Discussed Condition With: Dr. Ramirez <Chandni Hager - 10/04/17 16:43> - Attending Attestation Patient seen and examined today, discussed with resident team. I agree with assessment and management as documented and discussed with me. Pt remains with urinary retention. Appreciate urology recs. Anticipate discharge tomorrow, once pt is educated on self-cath and abx changed to PO. <Brittni Ramirez - 10/04/17 20:01> <Chandni Hager - Last Filed: 10/04/17 16:15> (3) Pneumonia Qualifiers: Pneumonia type: due to unspecified organism Laterality: left Lung location: lower lobe of lung Qualified Code(s): J18.1 - Lobar pneumonia, unspecified organism (4) Chest pain Qualifiers: Chest pain type: unspecified Qualified Code(s): R07.9 - Chest pain, unspecified (6) Diabetes mellitus Qualifiers: Diabetes mellitus type: type 2 Diabetes mellitus long term care social worker insulin use: with long term care social worker use Diabetes mellitus complication status: with kidney complications Diabetes mellitus complication detail: with chronic kidney disease Chronic kidney disease stage: on chronic dialysis Qualified Code(s): E11.22 - Type 2 diabetes mellitus with diabetic chronic kidney disease; N18.6 - End stage renal disease; Z79.4 - long term care social worker (current) use of insulin; Z99.2 - Dependence on renal dialysis <Brittni Ramirez - Last Filed: 10/04/17 20:01> (3) Pneumonia Qualifiers: Pneumonia type: due to unspecified organism Laterality: left Lung location: lower lobe of lung Qualified Code(s): J18.1 - Lobar pneumonia, unspecified organism (4) Chest pain Qualifiers: Chest pain type: unspecified Qualified Code(s): R07.9 - Chest pain, unspecified (6) Diabetes mellitus Qualifiers: Diabetes mellitus type: type 2 Diabetes mellitus prison insulin use: with prison use Diabetes mellitus complication status: with kidney complications Diabetes mellitus complication detail: with chronic kidney disease Chronic kidney disease stage: on chronic dialysis Qualified Code(s): E11.22 - Type 2 diabetes mellitus with diabetic chronic kidney disease; N18.6 - End stage renal disease; Z79.4 - USP (current) use of insulin; Z99.2 - Dependence on renal dialysis <Chandni Hager - Last Filed: 10/04/17 16:15> (3) Pneumonia Qualifiers: Pneumonia type: due to unspecified organism Laterality: left Lung location: lower lobe of lung Qualified Code(s): J18.1 - Lobar pneumonia, unspecified organism (4) Chest pain Qualifiers: Chest pain type: unspecified Qualified Code(s): R07.9 - Chest pain, unspecified (6) Diabetes mellitus Qualifiers: Diabetes mellitus type: type 2 Diabetes mellitus prison insulin use: with long term care social worker use Diabetes mellitus complication status: with kidney complications Diabetes mellitus complication detail: with chronic kidney disease Chronic kidney disease stage: on chronic dialysis Qualified Code(s): E11.22 - Type 2 diabetes mellitus with diabetic chronic kidney disease; N18.6 - End stage renal disease; Z79.4 - long term care social worker (current) use of insulin; Z99.2 - Dependence on renal dialysis <Brittni Ramirez - Last Filed: 10/04/17 20:01> (3) Pneumonia Qualifiers: Pneumonia type: due to unspecified organism Laterality: left Lung location: lower lobe of lung Qualified Code(s): J18.1 - Lobar pneumonia, unspecified organism (4) Chest pain Qualifiers: Chest pain type: unspecified Qualified Code(s): R07.9 - Chest pain, unspecified (6) Diabetes mellitus Qualifiers: Diabetes mellitus type: type 2 Diabetes mellitus long term care social worker insulin use: with prison use Diabetes mellitus complication status: with kidney complications Diabetes mellitus complication detail: with chronic kidney disease Chronic kidney disease stage: on chronic dialysis Qualified Code(s): E11.22 - Type 2 diabetes mellitus with diabetic chronic kidney disease; N18.6 - End stage renal disease; Z79.4 - long term care social worker (current) use of insulin; Z99.2 - Dependence on renal dialysis
[2017-10-04] MEDS: Heparin - SQ 10,000 UNITS/ML Vial SQ SCH ×3 (11:18→22:27)
[2017-10-04] MEDS: Insulin NovoLOG Aspart Correctional Sugar Inj SQ SCH ×4 (11:18→23:02)
[2017-10-04] MEDS: Metoprolol Tartrate 100 MG Tablet PO SCH ×2 (11:19→23:01)
[2017-10-04] MEDS: hydrALAZINE 50 MG Tablet PO SCH ×3 (11:19→17:52)
[2017-10-04] MEDS: Folic Acid 1 MG Tablet PO SCH (11:19)
[2017-10-04] MEDS: Isosorbide Mononitrate 60 MG ER 24HR Tablet (Imdur) PO SCH (11:19)
[2017-10-04] MEDS: Gabapentin 300 MG Capsule PO SCH (11:20)
[2017-10-04] MEDS: amLODIPine 10 MG Tablet PO SCH (11:20)
[2017-10-04] MEDS: Polyethylene Glycol 3350 17 GM Packet PO SCH (11:20)
[2017-10-04] MEDS: Senna/Docusate Sodium 8.6/50 MG Tablet PO SCH ×2 (11:21→23:01)
--- NOTE | 2017-10-04 12:43 | P.CONURO ---
History of Present Illness Consult date: 10/04/17 Requesting Physician: Chandni Hager Reason for Consult: Urinary retention Primary Care Provider: Abdulkadir Campos DO Chief Complaint: Chest Pain History of Present Illness: 52-year-old female with history multiple medical problems including diabetes and end-stage renal disease who was recently admitted for workup and management of chest pain. During the course of her hospitalization, the patient was unable to void spontaneously and required intermittent catheterization. A urology consult was placed for further recommendations. Upon further questioning, the patient reports that prior to her present hospitalization she had been voiding maybe 3 times daily without any problems. She denied hesitancy , dysuria or gross hematuria. She was not taking any medication that potentially could cause urinary retention. She denies undergoing any type of pelvic reconstructive surgery including bladder sling surgery. Review of Systems Cardiovascular: Reports chest pain Gastrointestinal: Reports abdominal pain (Lower abdomen) Genitourinary: Denies blood in urine, Denies painful urination, Denies urinary incontinence Musculoskeletal: Denies back pain PMFSH - History History Provided By: Patient - Medical History Medical History: Medical History (Last Reviewed 09/29/17 @ 08:48 by Lul Gillespie MD) AV fistula CAD (coronary artery disease) CHF (congestive heart failure) Diabetes Dialysis patient High cholesterol Hypertension Neuropathy Pancreatitis Renal failure - Surgical History Surgical History: Surgical History (Last Reviewed 09/29/17 @ 08:48 by Lul Gillespie MD) H/O tubal ligation History of cholecystectomy Status post double vessel coronary artery bypass - Tobacco History Second Hand Smoke Exposure: No Tobacco Use In Past 30 Days: No Smoking Status: Former smoker Smoking End Date: 2016 - Alcohol History How Often Do You Have a Drink Containing Alcohol: Never - Substance Use History Substance History: No History of Abuse - Travel History History of Recent Travel: No Recent Travel in the [place] Within the Last 8 Weeks: No Recent Travel Out of the Country Within the Last 8 Weeks: No - Immunization History Tetanus Immunization: >5 Years Hx Influenza Vaccine This Season: Yes Medications and Allergies Active Medications: Active Medications Acetaminophen (Tylenol) 650 mg PO Q4H PRN PRN Reason: Temp > 100.4 Acetaminophen (Tylenol) 650 mg PO UNSCH PRN PRN Reason: SEE LABEL COMMENTS Amlodipine Besylate (Norvasc) 10 mg PO DAILY [facility] Last Admin: 10/04/17 11:20 Dose: Not Given Clonidine HCl (Catapres) 0.1 mg PO UNSCH PRN PRN Reason: SEE LABEL COMMENTS Last Admin: 09/30/17 17:53 Dose: 0.1 mg Clopidogrel Bisulfate (Plavix) 75 mg PO DAILY [facility] Last Admin: 10/04/17 11:21 Dose: Not Given Dextrose (D50w Vial) 50 ml IV.PUSH UNSCH PRN PRN Reason: PER HYPOGLYCEMIA PROTOCOL Last Admin: 09/30/17 09:48 Dose: 50 ml Diphenhydramine HCl (Benadryl) 25 mg PO UNSCH PRN PRN Reason: SEE LABEL COMMENTS Last Admin: 10/03/17 21:29 Dose: 25 mg Enalapril Maleate (Vasotec) 20 mg PO BID [facility] Last Admin: 10/04/17 11:21 Dose: Not Given Folic Acid (Folic Acid) 1 mg PO DAILY [facility] Last Admin: 10/04/17 11:19 Dose: Not Given Gabapentin (Neurontin) 300 mg PO DAILY [facility] Last Admin: 10/04/17 11:20 Dose: Not Given Gelatin (Gelfoam 12 Mm/7 Mm Topical) 1 foam TOPICAL PRN PRN PRN Reason: help stop bleeding from site Gentamicin Sulfate (Gentamicin Inj) 20 mg OTHER WITH DIALYSIS PRN PRN Reason: Dwell Gentamycin Lock Last Admin: 10/02/17 11:00 Dose: 20 mg Glucagon (Glucagon Inj) 1 mg OTHER PRN PRN PRN Reason: for Hypoglycemia Protocol Heparin Sodium (Porcine) (Heparin Inj) 5,000 units SQ Q8H [facility] Last Admin: 10/04/17 11:18 Dose: Not Given Heparin Sodium (Porcine) (Heparin Inj) 8,000 units IV.FLUSH WITH DIALYSIS PRN PRN Reason: for machine prime Heparin Sodium (Porcine) (Heparin Inj) 1,000 units OTHER WITH DIALYSIS PRN PRN Reason: Dwell Heparin to Fill Catheter Hydralazine HCl (Apresoline) 50 mg PO TID [facility] Last Admin: 10/04/17 11:19 Dose: Not Given Albumin Human (Flexbumin 25% Inj) 100 mls @ 60 mls/hr IV.SIG WITH DIALYSIS PRN PRN Reason: hypotension / volume replace Sodium Chloride (Ns Inj) 1,000 mls @ 0 mls/hr OTHER .Q0M PRN PRN Reason: for prime and rinse back Sodium Chloride (Ns Inj) 1,000 mls @ 200 mls/hr OTHER .Q5H PRN PRN Reason: for dialyzer flush PRN Sodium Chloride (Ns Inj) 1,000 mls @ 0 mls/hr IV.CONT .Q0M PRN PRN Reason: hypotension / volume replace Cefepime HCl 500 mg/ Sodium (Chloride) 100 mls @ 200 mls/hr IV.SIG DAILY [facility] Last Infusion: 10/03/17 09:48 Dose: Infused Vancomycin HCl 1,000 mg/ (Sodium Chloride) 250 mls @ 250 mls/hr IV.SIG WITH DIALYSIS [facility] Insulin Aspart (Novolog Insulin Suppl Scale Inj) 0 unit SQ ACHS [facility]; Protocol Last Admin: 10/04/17 11:18 Dose: Not Given Insulin Detemir (Levemir Inj) 15 unit SQ HS [facility] Last Admin: 10/03/17 21:22 Dose: 15 unit Isosorbide Mononitrate (Imdur) 120 mg PO DAILY [facility] Last Admin: 10/04/17 11:19 Dose: Not Given Mannitol (Mannitol Inj) 12.5 gm IV.PUSH PRN PRN PRN Reason: hypotension / volume replace Metoprolol Tartrate (Lopressor) 100 mg PO BID [facility] Last Admin: 10/04/17 11:19 Dose: Not Given Nitroglycerin (Nitrostat Sl) 0.4 mg SL Q5M PRN PRN Reason: CHEST PAIN Ondansetron HCl (Zofran Odt) 4 mg PO Q6H PRN PRN Reason: NAUSEA OR VOMITING Ondansetron HCl (Zofran Inj) 4 mg IV.PUSH UNSCH PRN PRN Reason: NAUSEA OR VOMITING Last Admin: 10/03/17 17:54 Dose: 4 mg Polyethylene Glycol (Miralax) 17 gm PO DAILY [facility] Last Admin: 10/04/17 11:20 Dose: Not Given Pravastatin Sodium (Pravachol) 40 mg PO DAILY [facility] Last Admin: 10/04/17 11:21 Dose: Not Given Senna/Docusate Sodium (Jana-Colace) 1 tab PO BID [facility] Last Admin: 10/04/17 11:21 Dose: Not Given Sodium Chloride (Ns Flush) 2 ml IV.FLUSH UNSCH PRN PRN Reason: FLUSH AFTER USING IV ACCESS Last Admin: 09/29/17 14:35 Dose: 2 ml Sodium Chloride (Ns Flush) 5 ml IV.FLUSH PRN PRN PRN Reason: flush each lumen during HD Allergies Allergy/AdvReac Type Severity Reaction Status Date / Time shellfish derived AdvReac Mild Vomiting Verified 09/29/17 08:09 Home Medications Medication Instructions Recorded Confirmed Type amlodipine 10 mg PO DAILY 09/29/17 09/29/17 History aspirin [Aspir-81] 81 mg PO DAILY 09/29/17 09/29/17 History clopidogrel [Plavix] 75 mg PO DAILY 09/29/17 09/29/17 History enalapril maleate [Vasotec] 20 mg PO BID 09/29/17 09/29/17 History ferrous sulfate 325 mg PO BID 09/29/17 09/29/17 History folic acid 0.4 mg PO DAILY 09/29/17 09/29/17 History gabapentin 300 mg PO DAILY 09/29/17 09/29/17 History hydralazine 50 mg PO TID 09/29/17 09/29/17 History insulin glargine [Lantus U-100 15 unit SUB-Q DAILY 09/29/17 09/29/17 History Insulin] isosorbide mononitrate 120 mg PO QAM 09/29/17 09/29/17 History metoprolol tartrate 100 mg PO BID 09/29/17 09/29/17 History nitroglycerin [Nitrostat] 0.4 mg SUBLINGUAL Q5-15M PRN 09/29/17 09/29/17 History ondansetron HCl [Zofran] 4 mg PO Q6HR PRN 09/29/17 09/29/17 History pravastatin [Pravachol] 40 mg PO DAILY 09/29/17 09/29/17 History Physical Exam Vital Signs - 24 hr 10/03/17 16:00 10/03/17 20:00 10/04/17 00:00 Temperature 97.7 F 98.4 F 98.1 F Pulse Rate 78 81 81 Respiratory Rate 20 18 18 Blood Pressure 107/55 L 152/67 H 164/70 H Pulse Oximetry 97 95 95 10/04/17 00:14 10/04/17 04:00 10/04/17 08:00 Temperature 98.7 F 98.3 F Pulse Rate 77 82 Respiratory Rate 9 L 18 20 Blood Pressure 157/67 H 160/72 H Pulse Oximetry 94 L 94 L 10/04/17 10:29 Temperature Pulse Rate 80 Respiratory Rate Blood Pressure Pulse Oximetry Physical Exam: GENERAL: This is a well-nourished, well-developed patient, in no apparent distress. SKIN: No rashes, ecchymoses or lesions. Cool and dry. HEAD: Atraumatic. Normocephalic. No temporal or scalp tenderness. EYES: Pupils equal round and reactive. Extraocular motions intact. No scleral icterus. No injection or drainage. ENT: Nose without bleeding, purulent drainage or septal hematoma. Throat without erythema, tonsillar hypertrophy or exudate. Uvula midline. Airway patent. NECK: Trachea midline. No JVD or lymphadenopathy. Supple, nontender, no meningeal signs. CARDIOVASCULAR: Regular rate and rhythm without murmurs, gallops, or rubs. RESPIRATORY: Clear to auscultation. Breath sounds equal bilaterally. No wheezes , rales, or rhonchi. GASTROINTESTINAL: Abdomen soft, non-tender, nondistended. No hepato-splenomegaly , or palpable masses. No guarding. GENITOURINARY: No CVA tenderness, bladder not distended. MUSCULOSKELETAL: Extremities without clubbing, cyanosis, or edema. No joint tenderness, effusion, or edema noted. No calf tenderness. Negative Homans sign bilaterally. NEUROLOGICAL: Awake and alert. Cranial nerves II through XII intact. Motor and sensory grossly within normal limits. Five out of 5 muscle strength in all muscle groups. Normal speech. Laboratory Results - last 24 hr 10/03/17 10/03/17 10/03/17 12:25 17:20 19:41 WBC RBC Hgb Hct MCV MCH MCHC RDW Plt Count MPV Sodium Potassium Chloride Carbon Dioxide Anion Gap BUN Creatinine Estimated GFR POC Glucose 165 H 188 H 232 H Random Glucose Calcium 10/04/17 10/04/17 10/04/17 05:40 05:40 08:13 WBC 4.8 RBC 3.73 L Hgb 11.9 Hct 36.6 MCV 98.2 MCH 32.0 MCHC 32.6 RDW 16.0 Plt Count 265 MPV 7.9 Sodium 135 L Potassium 4.8 Chloride 98 Carbon Dioxide 27.7 Anion Gap 9 BUN 49 H Creatinine 5.99 H Estimated GFR 9 L POC Glucose 122 H Random Glucose 138 H Calcium 8.6 Microbiology 10/02/17 04:20 Aerobic Blood Culture - Preliminary Blood - Peripheral No growth in 2 days Anaerobic Blood Culture - Preliminary No growth in 2 days 10/02/17 04:10 Aerobic Blood Culture - Preliminary Blood - Peripheral No growth in 2 days Anaerobic Blood Culture - Preliminary No growth in 2 days 09/30/17 00:20 Aerobic Blood Culture - Preliminary Blood - Line No growth in 4 days Anaerobic Blood Culture - Preliminary No growth in 4 days 09/29/17 17:15 Aerobic Blood Culture - Final Blood - Line No growth in 5 days Anaerobic Blood Culture - Final No growth in 5 days Result Diagrams: 10/04/17 05:40 10/04/17 05:40 Imaging: ITS Impressions Ribs X-Ray 09/29/17 00:00 CONCLUSION: No definite rib fractures are demonstrated. Chest X-Ray 09/29/17 08:09 CONCLUSION: 1. Left basilar airspace disease 2. Median sternotomy wires status post open heart surgery. 3. Mild cardiomegaly. 4. Stable dialysis catheter. Pulmonary Perfusion Imaging 09/29/17 09:44 CONCLUSION: 1. Low probability for PE. Chest CT 09/30/17 00:00 CONCLUSION: 1. Small bilateral pleural effusions with basilar atelectasis. Trace pericardial fluid. 2. Severe coronary artery calcifications status post CABG. 3. Mild anasarca. Catheter tip in right atrium. Assessment and Plan - Assessment (1) Retention of urine Code(s): R33.9 - Retention of urine, unspecified Status: Acute - Plan 1. continue with clean intermittent catheterization at least 3 times daily and more often if patient has suprapubic pain. 2. Patient to follow-up with me at the office within the next several weeks for cystoscopy and a urodynamics evaluation [phone].
[2017-10-04] MEDS: Cefepime Inj 500 MG in Sodium Chlor 0.9% Inj 100 ML IV.SIG SCH (14:47)
[2017-10-04] MEDS ORDERED: Bisacodyl 10 MG Supp RECTAL PRN (15:00)
[2017-10-04] MEDS ORDERED: Morphine Inj 4 MG/ML Vial IV.PUSH ONE (18:05)
[2017-10-04] MEDS: Insulin Detemir Inj 1,000 UNIT/10 ML Vial SQ SCH (23:01)
[2017-10-05] MEDS: Heparin - SQ 10,000 UNITS/ML Vial SQ SCH ×2 (03:12→09:04)
--- NOTE | 2017-10-05 08:39 | P.PNNP ---
Subjective Interval history: patient was seen and examined. She had about 100 ml of urine output last night. Seen by Urology: intermittent catheterizations recommended for now, to follow up with Urology for cystoscopy and urodynamic study. Blood cultures are negative to date. Low grade fever last night. Physical Exam Vital signs: Vital Signs 10/04/17 10:29 10/04/17 16:00 10/04/17 16:27 Temperature 99.5 F Pulse Rate 80 92 H 90 Respiratory Rate 20 Blood Pressure 175/84 H Pulse Oximetry 94 L 10/04/17 17:41 10/04/17 20:00 10/05/17 00:00 Temperature 99.9 F H 99.2 F Pulse Rate 95 H 87 Respiratory Rate 20 18 18 Blood Pressure 175/79 H 178/80 H Pulse Oximetry 95 96 10/05/17 04:00 Temperature 98.3 F Pulse Rate 80 Respiratory Rate 18 Blood Pressure 195/78 H Pulse Oximetry 93 L Intake & Output 10/04/17 10/05/17 10/05/17 18:59 06:59 18:59 Intake Total 480 / 480 Output Total 3000 / 3000 200 / 200 Balance -2520 / -2520 -200 / -200 Weight 63.1 kg Intake: IV 0 / 0 Maxipime Inj 500 MG In NS Inj 0 / 0 100 ML @ 200 mls/hr IV.SIG DAILY [facility] Rx#:[id number] Oral 480 / 480 Output: Urine 200 / 200 Hemodialysis Amount 3000 / 3000 - Constitutional no acute distress, chronically ill appearing - Routine HEENT Exam Head: Present: normocephalic, atraumatic Eye: Present: EOMI, PERRL - Routine Neck Exam Present: supple. Absent: JVD, carotid bruit - Routine Respiratory Exam Present: CTA bilaterally - Routine Cardiovascular Exam Present: RRR, S1, S2 - Routine Abdominal Exam Present: soft, normoactive bowel sounds. Absent: tenderness - Routine Extremities Exam Present: full ROM. Absent: cyanosis, clubbing, edema - Routine Neurological Exam Present: alert, oriented X3, CN II-XII intact - Urinary Catheter Management Straight Cath placed during this visit: yes, but has since been removed by the nurse Urethral indwelling: No Insertion date: 10/03/17 Insertion time: 23:40 Removal date: 10/03/17 Removal time: 11:51 Assessment and Plan - Assessment (1) ESRD (end stage renal disease) on dialysis Code(s): N18.6 - End stage renal disease; Z99.2 - Dependence on renal dialysis Status: Chronic Plan: ESRD MWF. Using a tunneled CVC while AVF matures. Has appointment with Dr. Cobos outpatient to evaluate. Avoid gadolinium and IVF. Monitor electrolytes and fluid status Blood cultures are negative so far. On Vancomycin and Cefepime. (2) Chest pain Code(s): R07.9 - Chest pain, unspecified Status: Acute Qualifiers: Chest pain type: unspecified Qualified Code(s): R07.9 - Chest pain, unspecified Plan: Etiology unclear. Has not seen Dr. Lee since CABG. VQ negative for PE. EKG unremarkable. Possible symptoms due to pneumonia or costochondritis? Discontinue Morphine. Improved. (3) Fever and chills Code(s): R50.9 - Fever, unspecified Status: Acute Onset Date: ~09/29/17 Plan: No fever. Blood cultures are negative so far. On Vancomycin with HD and IV Cefepime. (4) HTN (hypertension) Code(s): I10 - Essential (primary) hypertension Status: Chronic Plan: She is on enalapril, hydralazine, clonidine, isosorbide, Norvasc, and metoprolol. Monitor BP and titrate as needed. - Attending Attestation Possible discharge today, patient is not interested in self catheterizations.
[2017-10-05] MEDS: amLODIPine 10 MG Tablet PO SCH (08:51)
[2017-10-05] MEDS: Isosorbide Mononitrate 60 MG ER 24HR Tablet (Imdur) PO SCH (08:51)
[2017-10-05] MEDS: hydrALAZINE 50 MG Tablet PO SCH ×2 (08:52→12:45)
[2017-10-05] MEDS: Gabapentin 300 MG Capsule PO SCH (08:52)
[2017-10-05] MEDS: Senna/Docusate Sodium 8.6/50 MG Tablet PO SCH (08:52)
[2017-10-05] MEDS: Metoprolol Tartrate 100 MG Tablet PO SCH (08:52)
[2017-10-05] MEDS: Folic Acid 1 MG Tablet PO SCH (08:52)
[2017-10-05] MEDS: Polyethylene Glycol 3350 17 GM Packet PO SCH (08:52)
[2017-10-05] MEDS: Cefepime Inj 500 MG in Sodium Chlor 0.9% Inj 100 ML IV.SIG SCH (08:53)
[2017-10-05] MEDS: Insulin NovoLOG Aspart Correctional Sugar Inj SQ SCH ×2 (09:23→11:28)
--- NOTE | 2017-10-05 09:31 | P.PNFP ---
Subjective Interval history: Patient seen and examined. Patient has started to pass urine, about 100-200 cc this morning. She does not want to straight cath at home. Patient is otherwise feeling better than on admission. She continues to have mild, left-side rib pain, but remains otherwise asymptomatic and would like to return home. She notes no acute events while receiving dialysis yesterday. She also has not had a bowel movement since admission even with taking the MiraLAX, but denies any abdominal pain. Patient denies fever, chills, nausea, vomiting, chest pain, shortness of breath, abdominal pain, or leg pain. <Lucrecia Lara - 10/05/17 20:30> Results - Labs Result diagrams: 10/05/17 08:33 10/05/17 08:33 <Brittni Ramirez - 10/05/17 20:56> Abnormal lab results 10/04/17 10/05/17 10/05/17 Range/Units 21:12 07:53 08:33 BUN 35 H (7-18) mg/dL Creatinine 4.88 H (0.50-1.00) mg/dL Estimated GFR 11 L (>89) mL/min POC Glucose 267 H 56 L (68-110) mg/dl Random Glucose 62 L (74-106) mg/dL 10/05/17 Range/Units 11:22 BUN (7-18) mg/dL Creatinine (0.50-1.00) mg/dL Estimated GFR (>89) mL/min POC Glucose 242 H (68-110) mg/dl Random Glucose (74-106) mg/dL Short CBC 10/05/17 Range/Units 08:33 WBC 4.9 (4.0-11.0) th/mm3 Hgb 13.1 (11.6-15.3) gm/dL Hct 39.8 (35.0-46.0) % Plt Count 256 (150-450) th/mm3 BMP 10/05/17 08:33 Sodium 137 Potassium 3.9 D Chloride 98 Carbon Dioxide 26.7 BUN 35 H Creatinine 4.88 H Calcium 9.4 D <Brittni Ramirez - 10/05/17 20:56> Abnormal lab results 10/04/17 10/04/17 10/04/17 Range/Units 12:39 17:54 21:12 POC Glucose 147 H 266 H 267 H (68-110) mg/dl 10/05/17 Range/Units 07:53 POC Glucose 56 L (68-110) mg/dl <Lucrecia Lara - 10/05/17 09:30> Physical Exam Vital signs: Vital Signs 10/05/17 00:00 10/05/17 04:00 10/05/17 08:00 Temperature 99.2 F 98.3 F 98.6 F Pulse Rate 87 80 75 Respiratory Rate 18 18 20 Blood Pressure 178/80 H 195/78 H 161/71 H Pulse Oximetry 96 93 L 94 L 10/05/17 12:00 Temperature 98.7 F Pulse Rate 75 Respiratory Rate 20 Blood Pressure 123/58 L Pulse Oximetry 97 Intake & Output 10/05/17 10/05/17 10/06/17 06:59 18:59 06:59 Intake Total 200 / 200 Output Total 200 / 200 Balance -200 / -200 200 / 200 Weight 63.1 kg Intake: IV 200 / 200 Maxipime Inj 500 MG In NS Inj 200 / 200 100 ML @ 200 mls/hr IV.SIG DAILY CULLEN Rx#:[id number] Output: Urine 200 / 200 <Brittni Ramirez - 10/05/17 20:56> Vital Signs 10/04/17 10:29 10/04/17 16:00 10/04/17 16:27 Temperature 99.5 F Pulse Rate 80 92 H 90 Respiratory Rate 20 Blood Pressure 175/84 H Pulse Oximetry 94 L 10/04/17 17:41 10/04/17 20:00 10/05/17 00:00 Temperature 99.9 F H 99.2 F Pulse Rate 95 H 87 Respiratory Rate 20 18 18 Blood Pressure 175/79 H 178/80 H Pulse Oximetry 95 96 10/05/17 04:00 Temperature 98.3 F Pulse Rate 80 Respiratory Rate 18 Blood Pressure 195/78 H Pulse Oximetry 93 L Intake & Output 10/04/17 10/05/17 10/05/17 18:59 06:59 18:59 Intake Total 480 / 480 200 / 200 Output Total 3000 / 3000 200 / 200 Balance -2520 / -2520 -200 / -200 200 / 200 Weight 63.1 kg Intake: IV 0 / 0 200 / 200 Maxipime Inj 500 MG In NS Inj 0 / 0 200 / 200 100 ML @ 200 mls/hr IV.SIG DAILY CULLEN Rx#:[id number] Oral 480 / 480 Output: Urine 200 / 200 Hemodialysis Amount 3000 / 3000 <Lucrecia Lara 10/05/17 09:30> Narrative: Narrative: GENERAL: -Luxembourger female laying in bed holding left breast being dialyzed, in mild distress. SKIN: Warm and dry. HEAD: Atraumatic. Normocephalic. EYES: Pupils equal and round. No scleral icterus. No injection or drainage. ENT: No nasal bleeding or discharge. Mucous membranes pink and moist. NECK: Trachea midline. No JVD. CARDIOVASCULAR: Regular rate and rhythm. Mild chest wall underneath left breast: tenderness to palpation of lower ribs, improved from admission. Dialysis catheter located on right chest around 3-4 ribs space RESPIRATORY: No accessory muscle use. Clear to auscultation. Breath sounds equal bilaterally. GASTROINTESTINAL: Abdomen soft and non-tender with normal bowel sounds in all four quadrants. MUSCULOSKELETAL: Extremities without clubbing, cyanosis, or edema. No obvious deformities. NEUROLOGICAL: Awake and alert. No obvious cranial nerve deficits. Motor grossly within normal limits. Normal speech. <Lucrecia Lara 10/05/17 20:30> - Urinary Catheter Management Straight Cath placed during this visit: no <Brittni Ramirez - 10/05/17 20:56> yes, but has since been removed by the nurse <Lucrecia Lara 10/05/17 20:30> Urethral indwelling: No <Lucrecia Lara 10/05/17 09:30> Reason for continuing: Acute urinary retention <Lucrecia Lara 10/05/17 09: 30> Insertion date: 10/03/17 <Lucrecia Lara 10/05/17 09:30> Insertion time: 23:40 <Lucrecia Lara 10/05/17 09:30> Removal date: 10/03/17 <Lucrecia Lara 10/05/17 09:30> Removal time: 11:51 <Lucrecia Lara 10/05/17 09:30> Assessment and Plan - Assessment (1) Acute urinary retention Code(s): R33.8 - Other retention of urine Status: Acute (2) ESRD (end stage renal disease) on dialysis Code(s): N18.6 - End stage renal disease; Z99.2 - Dependence on renal dialysis Status: Chronic (3) Pneumonia Code(s): J18.9 - Pneumonia, unspecified organism Status: Acute (4) Chest pain Code(s): R07.9 - Chest pain, unspecified Status: Acute (5) HTN (hypertension) Code(s): I10 - Essential (primary) hypertension Status: Chronic (6) Diabetes mellitus Code(s): E11.9 - Type 2 diabetes mellitus without complications Status: Chronic (7) Nutrition, metabolism, and development symptoms Code(s): R63.8 - Other symptoms and signs concerning food and fluid intake Status: Acute (8) DVT prophylaxis Status: Acute <Brittni Ramirez - 10/05/17 20:56> (1) Acute urinary retention Code(s): R33.8 - Other retention of urine Status: Acute Plan: Patient complaining of urinary hesitancy and pain upon urination on 10/01, which has progressed to urinary retention. Patient has been straight cath'd since the to relieve her of pain, following bladder scans showing at least 500-600 ml in the bladder. UA was negative for UTI on 10/01. Reviewed medications that can contribute to urinary retention, hydralazine started after patients symptoms started and patient denies urinary retention due to Benadryl in the past. Will also consider whether constipation is a contributing factor. Patient notes that she was able to void last night about 3 times, passing about 100-200 ccs of urine each time. Patient understands that she had the option to straight cath if needed, but would rather not do so. She plans to follow up with urology for further testing on an outpatient basis. -Urology consulted, appreciate recommendations Recommended to continue with clean intermittent catheterization at least 3 times daily and more often if patient has suprapubic pain Follow-up as an outpatient for cystoscopy and urodynamics evaluation (2) ESRD (end stage renal disease) on dialysis Code(s): N18.6 - End stage renal disease; Z99.2 - Dependence on renal dialysis Status: Chronic Plan: Patient receives dialysis on MWF schedule. Patient was transferred from dialysis clinic today prior to receiving scheduled dialysis due to chest pain. Dialysis performed on 09/29 in hospital. Upon start of dialysis patient complained of shaking chills, severe pain at dialysis catheter site and in her groin in the location of a past cardiac catheterization, suspicious for catheter infection. Nephrology BCx2 ordered and patient given Vancomycin 1gm. Current catheter shows good tip placement on imaging and blood & catheter tip cultures have all been negative thus far, therefore there is no need to remove temporary catheter. Patient has tolerated dialysis without any catheter site pain on Monday and Monday of this week. Will follow up with Dr. Cobos for completion of AVF procedure. (3) Pneumonia Code(s): J18.9 - Pneumonia, unspecified organism Status: Acute Plan: Patient complaining of mild intermittent cough and difficulty breathing due to pain in left chest. Imaging ordered in emergency department showed ventilation defect on V/Q scan and left basilar infiltrate on CXR, which together are suspicious for pneumonia. She is being treated empirically for pneumonia at this time. -Incentive spirometer ordered -Day 6 of empiric treatment with Cefepime 500 mg IV daily, dosing per pharmacy recommendations, will continue for a total of 8 days (4) Chest pain Code(s): R07.9 - Chest pain, unspecified Status: Acute Plan: Patient complaining of sharp left sided chest pain, just below the left breast, tender to palpation. Patient also notes difficultly taking deep breaths due to pain. ACS r/o negative. D-dimer was high at 1.6, however V/Q scan with low probability of PE. No rib fractures seen on bilateral rib XR. CXR and V/Q scan together suspicious for left lower lobe pneumonia, for which she is receiving empiric treatment. Pain is most likely due to pleurisy associated with infection of the lung parenchyma. May also consider costochondritis or nerve impingement due to increased tenderness of left lower ribs on palpation. -Morphine discontinued today due to constipation -Added acetaminophen IV on 10/04 for pain (5) HTN (hypertension) Code(s): I10 - Essential (primary) hypertension Status: Chronic Plan: Patient has a history of HTN -Will continue home medications, including metoprolol 100 mg PO BID -Added amlodipine 10 mg PO daily, Enalapril 20 mg PO BID, Hydralazine 50 mg TID and Clonidine 0.1 mg PO PRN (6) Diabetes mellitus Code(s): E11.9 - Type 2 diabetes mellitus without complications Status: Chronic Plan: Patient has a history of DM. Patient had a single hypoglycemic episode while in the hospital on 09/30. BGL in the morning was 54 on examination, but resolved after giving D50 and apple juice. No hypoglycemic events since then. -Levemir at home dose of 15u at night -Low-dose NovoLog sliding scale insulin -Hypoglycemic protocol ordered on admission -Bedside blood glucose monitoring (7) Nutrition, metabolism, and development symptoms Code(s): R63.8 - Other symptoms and signs concerning food and fluid intake Status: Acute Plan: Fluids: Tolerating p.o. Nutrition: renal, heart health and diabetic diet Electrolytes: Will monitor and replete as needed (8) DVT prophylaxis Status: Acute Plan: DVT Prophylaxis: Heparin IV q8hr <Lucrecia Lara - 10/05/17 20:19> - Assessment and Plan 52 y/o F with hx of ESRD who undergoes dialysis on a MWF schedule, HTN, DM and recent history of cardiac bypass surgery in July of this year, presented with left-sided chest pain. Cardiac cause of chest pain ruled out on admission. Patient is being treated empirically for pneumonia. Patient complaining of urinary retention. Plan for discharge to home likely tomorrow. <Lucrecia Lara - 10/05/17 09:30> Discussed Condition With: Dr. Ramirez <Lucrecia Lara - 10/05/17 20:30> Discharge Planning: Patient to be discharged home with plan for follow up with urology for urinary retention and vascular surgery for completion of AVF procedure. <Lucrecia Lara - 10/05/17 20:30> - Attending Attestation Patient seen, examined today, and discussed with Dr Lara. I agree with assessment and management as documented and discussed with me. PT now able to pass urine. Discharge home today. <Brittni Ramirez - 10/05/17 20:56> <Lucrecia Lara Maty - Last Filed: 10/05/17 20:19> (3) Pneumonia Qualifiers: Pneumonia type: due to unspecified organism Laterality: left Lung location: lower lobe of lung Qualified Code(s): J18.1 - Lobar pneumonia, unspecified organism (4) Chest pain Qualifiers: Chest pain type: unspecified Qualified Code(s): R07.9 - Chest pain, unspecified (6) Diabetes mellitus Qualifiers: Diabetes mellitus type: type 2 Diabetes mellitus retirement insulin use: with retirement use Diabetes mellitus complication status: with kidney complications Diabetes mellitus complication detail: with chronic kidney disease Chronic kidney disease stage: on chronic dialysis Qualified Code(s): E11.22 - Type 2 diabetes mellitus with diabetic chronic kidney disease; N18.6 - End stage renal disease; 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 <Brittni Ramirez - Last Filed: 10/05/17 20:56> (3) Pneumonia Qualifiers: Pneumonia type: due to unspecified organism Laterality: left Lung location: lower lobe of lung Qualified Code(s): J18.1 - Lobar pneumonia, unspecified organism (4) Chest pain Qualifiers: Chest pain type: unspecified Qualified Code(s): R07.9 - Chest pain, unspecified (6) Diabetes mellitus Qualifiers: Diabetes mellitus type: type 2 Diabetes mellitus 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 Diabetes mellitus complication status: with kidney complications Diabetes mellitus complication detail: with chronic kidney disease Chronic kidney disease stage: on chronic dialysis Qualified Code(s): E11.22 - Type 2 diabetes mellitus with diabetic chronic kidney disease; N18.6 - End stage renal disease; Z79.4 - penitentiary (current) use of insulin; Z99.2 - Dependence on renal dialysis <Lucrecia Lara Maty - Last Filed: 10/05/17 20:19> (3) Pneumonia Qualifiers: Pneumonia type: due to unspecified organism Laterality: left Lung location: lower lobe of lung Qualified Code(s): J18.1 - Lobar pneumonia, unspecified organism (4) Chest pain Qualifiers: Chest pain type: unspecified Qualified Code(s): R07.9 - Chest pain, unspecified (6) Diabetes mellitus Qualifiers: Diabetes mellitus type: type 2 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 use Diabetes mellitus complication status: with kidney complications Diabetes mellitus complication detail: with chronic kidney disease Chronic kidney disease stage: on chronic dialysis Qualified Code(s): E11.22 - Type 2 diabetes mellitus with diabetic chronic kidney disease; N18.6 - End stage renal disease; Z79.4 - penitentiary (current) use of insulin; Z99.2 - Dependence on renal dialysis <Brittni Ramirez - Last Filed: 10/05/17 20:56> (3) Pneumonia Qualifiers: Pneumonia type: due to unspecified organism Laterality: left Lung location: lower lobe of lung Qualified Code(s): J18.1 - Lobar pneumonia, unspecified organism (4) Chest pain Qualifiers: Chest pain type: unspecified Qualified Code(s): R07.9 - Chest pain, unspecified (6) Diabetes mellitus Qualifiers: Diabetes mellitus type: type 2 Diabetes mellitus termite helper insulin use: with termite helper use Diabetes mellitus complication status: with kidney complications Diabetes mellitus complication detail: with chronic kidney disease Chronic kidney disease stage: on chronic dialysis Qualified Code(s): E11.22 - Type 2 diabetes mellitus with diabetic chronic kidney disease; N18.6 - End stage renal disease; 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
[2017-10-05] MEDS ORDERED: levoFLOXacin 500 MG Tablet PO ONE (10:02)
[2017-10-05 10:23] LABS: Hematocrit 39.8 % (35.0-46.0); Hemoglobin 13.1 gm/dL (11.6-15.3); Mean Corpuscular HGB Conc 32.9 % (32.0-36.0); Mean Corpuscular Hemoglobin 31.9 pg (27.0-34.0); Mean Corpuscular Volume 96.9 fL (80.0-100.0); Platelet Count 256 th/mm3 (150-450); Red Blood Count 4.11 mil/mm3 (4.00-5.30); Red Cell Distribution Width 15.4 % (11.6-17.2); White Blood Count 4.9 th/mm3 (4.0-11.0)
[2017-10-05 10:56] LABS: Calcium 9.4 mg/dL (8.5-10.1); Carbon Dioxide 26.7 meq/L (21.0-32.0); Potassium 3.9 meq/L (3.5-5.1)
--- NOTE | 2017-10-20 19:05 | P.DS ---
Date of admission: 09/29/17 14:22 Primary care physician: Abdulkadir Campos DO Brief History from admission: 09/29/17 at 18:45 Nephrology [employer] DESIGN[employer] seen and examined patient in dialysis suite. Notes possible dialysis port infection. BC x2 and Vancomycin 1g IV ordered. 09/29/17 at 19:10 Patient seen and examined by inpatient medical team. Patient is anxious while dialysis running and complains of pain at the site of the port. On palpation patient is tender over the site of the port, however, there are no obvious signs of infection such as erythema, warmth, or drainage. Per nurse, once dialysis started experiencing chills and increased pain at the site of the port. Will add on sputum culture, legionella urine antigen test, pneumococcal urine antigen test and urine culture. 09/29/17 at 23:00 Per nurse, patient is agitated and refusing all blood draws at this time. Patient strongly encouraged to allow for blood draw to rule out possible heart attack and possible infection. Patient understands and continues to refuse blood draw. 52 y/o female with history of ESRD who receives dialysis on a MWF schedule, DM, double bypass surgery performed in July of this year and CAD with four stent placements presented to the emergency department from the dialysis clinic for left-sided chest pain. Patient was sent to the emergency department before she was able to receive dialysis treatment. Patient currently complains on sharp and constant left-sided chest pain that radiates to her left shoulder that started at 8PM last night. Denies any particular trigger, stating that she was sitting down resting when the pain started. Patient states she took 2 nitroglycerin tabs for the pain prior to going to dialysis this morning, but it did not reduce her pain. She complains of difficulty breathing due to this pain. Patient denies trauma to the area, recent heavy lifting, noticeable rash, nausea, vomiting or abdominal pain. She had experienced similar pain about 2 weeks ago, but states that the pain stopped on its own. She also notes drenching night sweats for the past month, but denies any change in weight or sick contacts. She has also noticed mild swelling in both of her legs, worse in the past couple of days. 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 DS: Diagnosis - Discharge Diagnosis (1) Pneumonia Status: Acute (2) ESRD (end stage renal disease) on dialysis Status: Chronic (3) Chest pain Status: Acute (4) Urinary hesitancy Status: Acute (5) HTN (hypertension) Status: Chronic (6) Diabetes mellitus Status: Chronic (7) Nutrition, metabolism, and development symptoms Status: Acute (8) DVT prophylaxis Status: Acute DS: Medications - Discharge Medications Prescriptions: levofloxacin [Levaquin] 250 mg PO DIRECTED #1 tab tramadol 50 mg PO Q6H #12 tab DS: Summary Hospital Course: This is a 54-year-old female with history of end-stage renal disease who receives dialysis on a MWF schedule, diabetes, CAD status post double bypass surgery and stent placement admitted for left-sided chest pain while at dialysis. ACS rule out,, echocardiogram, and rib x-ray were negative in emergency department. D-dimer was elevated and VQ scan was low risk for PE however patient was noted to have decreased ventilation in the left lower lung. Along with small bilateral pleural effusion with left-sided basilar atelectasis, patient was started on empiric treatment for pneumonia. Patient was seen by nephrology and dialysis weight and was noted to have fever, chills and significant groin and dialysis catheter site pain on initiation of dialysis , suspicious for catheter infection. Catheter tip cultures in addition to blood cultures taken which showed no growth in 5 days. Patient was started on renally dosed vancomycin at this time. No further episodes of fever and chills or pain during dialysis treatment during hospital stay. Patient continued to experience dull, but improving left-sided chest pain located along ribs, most likely musculoskeletal. Patient later complained of urinary retention for which she received multiple bladder scans and straight cath. Urology consulted who recommended intermittent catheterization, however, patient was hesitant to catheterize at home. Prior to discharge, however, patient small amounts of urine on her own. Patient is discharged in stable condition on 10/05/17. Patient to follow-up with vascular surgery for completion of AVF, PCP for hospital follow-up and urology for urodynamic studies. - Time Spent with Patient Total time spent providing and/or coordinating discharge services: Results Procedures completed during hospitalization: none - Impressions ITS Impressions Ribs X-Ray 09/29/17 00:00 CONCLUSION: No definite rib fractures are demonstrated. Chest X-Ray 09/29/17 08:09 CONCLUSION: 1. Left basilar airspace disease 2. Median sternotomy wires status post open heart surgery. 3. Mild cardiomegaly. 4. Stable dialysis catheter. Pulmonary Perfusion Imaging 09/29/17 09:44 CONCLUSION: 1. Low probability for PE. Chest CT 09/30/17 00:00 CONCLUSION: 1. Small bilateral pleural effusions with basilar atelectasis. Trace pericardial fluid. 2. Severe coronary artery calcifications status post CABG. 3. Mild anasarca. Catheter tip in right atrium. Discharge Plan - Discharge Disposition Patient Disposition: Discharge Home - Discharge Condition Condition: Stable - Discharge Order Discharge Orders: Discharge Order (Routine); Ordered 10/05/17 Ordered By: Lucrecia aLra - Discharge Details Anticipated Discharge Date: 10/05/17 - Physicians Team Primary Care Provider: Abdulkadir Campos Attending Provider: Brittni Ramirez Other Providers: Pierce Dawn MD ; [employer] ; David Cruz MD
== END 2017-10-05 02:50 | disposition home or self-care (01) ==
LOC: NEPE 07:49 → NEDA 14:22 → N04 20:22 → N05 10-04 20:28
PROVIDERS: ADMIT Family Medicine; ATTEND Family Medicine